=== PATIENT | female | born 1940 | race Caucasian/White ===

== ENCOUNTER → 2016-11-06 | Outpatient (CLI) | payer MEDICARE | END | disposition home or self-care (01) | LOC: LABWHC1 11:34 | PROVIDERS: ATTEND Otolaryngology | DX: R42 Dizziness and giddiness (principal) | CPT/HCPCS: 36415; 86780 ==

== ENCOUNTER 2016-12-20 08:58 | Observation (INO) | payer MEDICARE ==
[2016-12-20] MEDS ORDERED: NITROGLYCERIN OINT 1 INCH/GM PACKET TOPICAL STA (09:28)
[2016-12-20] MEDS ORDERED: ASPIRIN 81 MG PO STA (09:28)
--- NOTE | 2016-12-20 09:43 | ED ---
General Adult HPI - General Chief complaint: Chest Pain Stated complaint: Chest Pain Time Seen by Provider: 12/20/16 09:00 Source: patient, RN notes reviewed Mode of arrival: ambulatory Limitations: no limitations - History of Present Illness Initial comments: This is a 76-year-old female who presents emergency department to the emergency department with chest pain this morning. Patient states she woke up with the chest pain radiated down her right arm. Patient also states she was diaphoretic at the time. Patient states that last approximate one hour and now the pain is completely subsided. Patient states she took 1 baby aspirin at home. Patient denied any shortness of breath. Patient denied any nausea vomiting. Patient denied any abdominal pain. Patient states she has not had any recent fever chills or cough. Patient denies any palpitations per patient denies any lightheadedness dizziness or near syncopal episode. Patient denies headache patient denies numbness weakness. Patient denies any recent injury or trauma. - Related Data Home Medications Medication Instructions Recorded Confirmed Aspirin 81 mg PO DAILY 01/02/16 12/20/16 Atorvastatin [Lipitor] 40 mg PO HS 01/02/16 12/20/16 Black Cohosh Root [Black Cohosh] 200 mg PO DAILY 01/02/16 12/20/16 Calcium Carbonate [Calcium] 600 mg PO BID 01/02/16 12/20/16 Metoprolol Tartrate [Lopressor] 25 mg PO BID 01/02/16 12/20/16 Omeprazole 20 mg PO DAILY 01/02/16 12/20/16 Ubidecarenone [Co Q-10] 100 mg PO DAILY 01/02/16 12/20/16 amLODIPine [Norvasc] 5 mg PO HS 01/02/16 12/20/16 Calcium Carbonate/Vitamin D3 1 tab PO DAILY 12/20/16 12/20/16 [Calcium 600-Vit D3 400 Caplet] Meclizine [Antivert] 12.5 mg PO Q6H PRN 12/20/16 12/20/16 diphenhydrAMINE HCL [Benadryl] 25 mg PO BID 12/20/16 12/20/16 Allergies Allergy/AdvReac Type Severity Reaction Status Date / Time No Known Allergies Allergy Verified 12/20/16 09:39 Review of Systems ROS Statement: Those systems with pertinent positive or pertinent negative responses have been documented in the HPI. ROS Other: All systems not noted in ROS Statement are negative. Past Medical History Past Medical History: CVA/TIA, GERD/Reflux, Hyperlipidemia, Hypertension, Osteoarthritis (OA) Additional Past Medical History / Comment(s): TIA couple yrs ago-no residual effects History of Any Multi-Drug Resistant Organisms: None Reported Past Surgical History: Back Surgery, Hysterectomy Past Anesthesia/Blood Transfusion Reactions: No Reported Reaction Past Psychological History: No Psychological Hx Reported Smoking Status: Never smoker Past Alcohol Use History: None Reported Past Drug Use History: None Reported - Past Family History Brother(s) Family Medical History: Cancer General Exam - General Exam Comments Initial Comments: GENERAL: Patient is well-developed and well-nourished. Patient is nontoxic and well- hydrated and is in no acute distress. ENT: Neck is soft and supple. No significant lymphadenopathy is noted. Oropharynx is clear. Moist mucous membranes. Neck has full range of motion without eliciting any pain. EYES: The sclera were anicteric and conjunctiva were pink and moist. Extraocular movements were intact and pupils were equal round and reactive to light. Eyelids were unremarkable. PULMONARY: Unlabored respirations. Good breath sounds bilaterally. No audible rales rhonchi or wheezing was noted. CARDIOVASCULAR: There is a regular rate and rhythm without any murmurs gallops or rubs. ABDOMEN: Soft and nontender with normal bowel sounds. No palpable organomegaly was noted. There is no palpable pulsatile mass. SKIN: Skin is clear with no lesions or rashes and otherwise unremarkable. NEUROLOGIC: Patient is alert and oriented x3. Cranial nerves II through XII are grossly intact. Motor and sensory are also intact. Normal speech, volume and content. Symmetrical smile. MUSCULOSKELETAL: Normal extremities with adequate strength and full range of motion. No lower extremity swelling or edema. No calf tenderness. LYMPHATICS: No significant lymphadenopathy is noted PSYCHIATRIC: Normal psychiatric evaluation. Normal interpersonal interactions appears functionally intact in deals appropriately with others. No signs of depression. 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 Chest x-ray shows no acute abnormality I started the patient heparin because of the clinical presentation and patient risk factors I spoke with Dr. Dr. Calero he agreed to admit the patient admitted the patient I wrote admitting orders - Lab Data Result diagrams: 12/20/16 09:15 12/20/16 09:15 Lab Results 12/20/16 12/20/16 12/20/16 Range/Units 09:15 09:15 09:15 WBC 6.1 (3.8-10.6) k/uL RBC 5.29 (3.80-5.40) m/uL Hgb 15.3 (11.4-16.0) gm/dL Hct 44.7 (34.0-46.0) % MCV 84.5 (80.0-100.0) fL MCH 28.9 (25.0-35.0) pg MCHC 34.3 (31.0-37.0) g/dL RDW 13.6 (11.5-15.5) % Plt Count 229 (150-450) k/uL Neutrophils % 66 % Lymphocytes % 21 % Monocytes % 5 % Eosinophils % 5 % Basophils % 1 % Neutrophils # 4.0 (1.3-7.7) k/uL Lymphocytes # 1.3 (1.0-4.8) k/uL Monocytes # 0.3 (0-1.0) k/uL Eosinophils # 0.3 (0-0.7) k/uL Basophils # 0.0 (0-0.2) k/uL PT (9.0-12.0) sec INR (<1.2) APTT (22.0-30.0) sec Sodium 142 (137-145) mmol/L Potassium 5.3 H (3.5-5.1) mmol/L Chloride 107 (98-107) mmol/L Carbon Dioxide 25 (22-30) mmol/L Anion Gap 10 mmol/L BUN 16 (7-17) mg/dL Creatinine 0.66 (0.52-1.04) mg/dL Est GFR (MDRD) Af Amer >60 (>60 ml/min/1.73 sqM) Est GFR (MDRD) Non-Af >60 (>60 ml/min/1.73 sqM) Glucose 121 H (74-99) mg/dL Calcium 9.5 (8.4-10.2) mg/dL Magnesium 2.1 (1.6-2.3) mg/dL Total Bilirubin 0.7 (0.2-1.3) mg/dL AST 39 H (14-36) U/L ALT 50 (9-52) U/L Alkaline Phosphatase 90 (38-126) U/L Total Creatine Kinase 126 (30-135) U/L CK-MB (CK-2) 1.0 (0.0-2.4) ng/mL CK-MB (CK-2) Rel Index 0.8 Troponin I <0.012 (0.000-0.034) ng/mL Total Protein 7.5 (6.3-8.2) g/dL Albumin 4.5 (3.5-5.0) g/dL 12/20/16 Range/Units 09:15 WBC (3.8-10.6) k/uL RBC (3.80-5.40) m/uL Hgb (11.4-16.0) gm/dL Hct (34.0-46.0) % MCV (80.0-100.0) fL MCH (25.0-35.0) pg MCHC (31.0-37.0) g/dL RDW (11.5-15.5) % Plt Count (150-450) k/uL Neutrophils % % Lymphocytes % % Monocytes % % Eosinophils % % Basophils % % Neutrophils # (1.3-7.7) k/uL Lymphocytes # (1.0-4.8) k/uL Monocytes # (0-1.0) k/uL Eosinophils # (0-0.7) k/uL Basophils # (0-0.2) k/uL PT 10.2 (9.0-12.0) sec INR 1.0 (<1.2) APTT 19.7 L (22.0-30.0) sec Sodium (137-145) mmol/L Potassium (3.5-5.1) mmol/L Chloride (98-107) mmol/L Carbon Dioxide (22-30) mmol/L Anion Gap mmol/L BUN (7-17) mg/dL Creatinine (0.52-1.04) mg/dL Est GFR (MDRD) Af Amer (>60 ml/min/1.73 sqM) Est GFR (MDRD) Non-Af (>60 ml/min/1.73 sqM) Glucose (74-99) mg/dL Calcium (8.4-10.2) mg/dL Magnesium (1.6-2.3) mg/dL Total Bilirubin (0.2-1.3) mg/dL AST (14-36) U/L ALT (9-52) U/L Alkaline Phosphatase (38-126) U/L Total Creatine Kinase (30-135) U/L CK-MB (CK-2) (0.0-2.4) ng/mL CK-MB (CK-2) Rel Index Troponin I (0.000-0.034) ng/mL Total Protein (6.3-8.2) g/dL Albumin (3.5-5.0) g/dL Critical Care Time Critical Care Time: Yes Total Critical Care Time: 35 Disposition Clinical Impression: Unstable angina pectoris Disposition: ADMITTED IP TO THIS [facility] Referrals: Nonstaff,Physician [REFERRING] - 1-2 days Time of Disposition: 11:05
[2016-12-20 09:46] LABS: Basophils % (A) 1 %; CH 28.7; CHCM 34.1; Eosinophils # (A) 0.3 k/uL (0-0.7); Eosinophils % (A) 5 %; HCT 44.7 % (34.0-46.0); HDW 2.88; HGB 15.3 gm/dL (11.4-16.0); Luc # (Auto) 0.17; Luc % (Auto) 3; Lymphocytes # (A) 1.3 k/uL (1.0-4.8); Lymphocytes % (A) 21 %; MCH 28.9 pg (25.0-35.0); MCHC 34.3 g/dL (31.0-37.0); MCV 84.5 fL (80.0-100.0); Mean Platelet Volume 7.2; Monocytes # (A) 0.3 k/uL (0-1.0); Monocytes % (A) 5 %; Neutrophils % (A) 66 %; RBC 5.29 m/uL (3.80-5.40); RDW 13.6 % (11.5-15.5); WBC 6.1 k/uL (3.8-10.6); WBC (Perox) 6.08
--- NOTE | 2016-12-20 09:54 | XR ---
EXAMINATION TYPE: XR chest 2V DATE OF EXAM: 12/20/2016 COMPARISON: Prior chest x-ray 03/20/2016 HISTORY: Chest pain TECHNIQUE: Frontal and lateral views of the chest are obtained. FINDINGS: The cardiomediastinal silhouette, pulmonary vascularity and debby are stable. Lung scarring or atelectasis suspected left lower lobe as on prior exam. No pneumothorax, or pleural effusion evid ent. Right hemidiaphragm mildly elevated, there is eventration change. There are overlying cardiac le ads. The aorta is dense. IMPRESSION: No acute cardiopulmonary disease
[2016-12-20 09:59] LABS: ALT 50 U/L (9-52); AST 39 U/L (14-36); Alkaline Phosphatase 90 U/L (38-126); Anion Gap 10 mmol/L; Blood Urea Nitrogen 16 mg/dL (7-17); Calcium 9.5 mg/dL (8.4-10.2); Carbon Dioxide 25 mmol/L (22-30); Chloride 107 mmol/L (98-107); Glucose 121 mg/dL (74-99); Magnesium 2.1 mg/dL (1.6-2.3); Non-African American GFR(MDRD) >60 (>60 ml/min/1.73 sqM); Potassium 5.3 mmol/L (3.5-5.1); Sodium 142 mmol/L (137-145); Total Bilirubin 0.7 mg/dL (0.2-1.3); Total Protein 7.5 g/dL (6.3-8.2)
[2016-12-20 10:04] LABS: Prothrombin Time 10.2 sec (9.0-12.0)
[2016-12-20 10:07] LABS: Creatine Kinase 126 U/L (30-135)
[2016-12-20 10:19] LABS: Partial Thromboplastin Time 19.7 sec (22.0-30.0)
[2016-12-20 10:20] LABS: Troponin I <0.012 ng/mL (0.000-0.034)
[2016-12-20] MEDS ORDERED: HEPARIN SODIUM,PORCINE 5,000 UNIT/ML 1 ML VIAL IV ONE (10:46)
[2016-12-20] MEDS ORDERED: HEPARIN SODIUM,PORCINE/D5W PMX 25,000 UNIT in DEXTROSE/WATER 1 500ML.BAG IV SCH (11:00)
[2016-12-20] MEDS ORDERED: NITROGLYCERIN SL TABS 0.4 MG TAB SUBLINGUAL PRN (11:05)
[2016-12-20] MEDS ORDERED: NITROGLYCERIN OINT 1 INCH/GM PACKET TOPICAL SCH (12:00)
[2016-12-20 13:30] VITALS: BMI 39.4
--- NOTE | 2016-12-20 14:50 | P.CRDCN ---
History of Present Illness History of present illness: This is a 76-year-old pleasant female. Past medical history significant for hypertension and dyslipidemia. She follows with Dr. MENDOZA Kennedy as an outpatient. She presents to the hospital this morning with complaints of left sided chest pain described as tightness. She states this pain was located underneath the breast almost in the axillary region. This pain radiated into the left arm. She woke up with the pain this morning and it lasted for approximately 30-60 minutes. The pain went away on its own. She denies associated shortness of breath, diaphoresis, palpitations, dizziness, nausea or vomiting. She denies radiation into her neck, jaw or back. She states she has been chest pain-free since arrival to the emergency department. She is resting comfortably in bed in no acute distress at the current time of my examination. Patient underwent cardiac catheterization in June 2012 which showed approximately 35% mid LAD disease. She also had a Cardiolite stress test that was negative for reversible ischemia that time. Otherwise normal coronaries. EKG done shows normal sinus mechanism, rate of 66 beats per minute with no T- wave abnormality. When compared with old EKG this appears consistent. Troponins are normal x 1. Chest x-ray showed no acute cardiopulmonary process. Review of Systems Extensive review of systems performed, negative except mentioned in HPI. 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 History of Any Multi-Drug Resistant Organisms: None Reported Past Surgical History: Back Surgery, Hysterectomy Past Anesthesia/Blood Transfusion Reactions: No Reported Reaction Past Psychological History: No Psychological Hx Reported Smoking Status: Never smoker Past Alcohol Use History: None Reported Past Drug Use History: None Reported - Past Family History Brother(s) Family Medical History: Cancer Medications and Allergies Home Medications Medication Instructions Recorded Confirmed Type Aspirin 81 mg PO DAILY 01/02/16 12/20/16 History Atorvastatin [Lipitor] 40 mg PO HS 01/02/16 12/20/16 History Black Cohosh Root [Black Cohosh] 200 mg PO DAILY 01/02/16 12/20/16 History Calcium Carbonate [Calcium] 600 mg PO BID 01/02/16 12/20/16 History Metoprolol Tartrate [Lopressor] 25 mg PO BID 01/02/16 12/20/16 History Omeprazole 20 mg PO DAILY 01/02/16 12/20/16 History Ubidecarenone [Co Q-10] 100 mg PO DAILY 01/02/16 12/20/16 History amLODIPine [Norvasc] 5 mg PO HS 01/02/16 12/20/16 History Calcium Carbonate/Vitamin D3 1 tab PO DAILY 12/20/16 12/20/16 History [Calcium 600-Vit D3 400 Caplet] Meclizine [Antivert] 12.5 mg PO Q6H PRN 12/20/16 12/20/16 History diphenhydrAMINE HCL [Benadryl] 25 mg PO BID 12/20/16 12/20/16 History Allergies Allergy/AdvReac Type Severity Reaction Status Date / Time No Known Allergies Allergy Verified 12/20/16 09:39 Physical Exam Vitals: Vital Signs Temp Pulse Pulse Pulse Resp BP BP 12/20/16 12:58 97.6 F 68 18 144/78 12/20/16 12:27 97.8 F 78 20 142/73 12/20/16 11:00 64 18 147/64 12/20/16 09:57 72 18 148/75 12/20/16 09:20 71 12/20/16 09:02 97.4 F L 70 18 180/86 Pulse Ox 12/20/16 12:58 93 L 12/20/16 12:27 92 L 12/20/16 11:00 92 L 12/20/16 09:57 95 12/20/16 09:20 12/20/16 09:02 93 L Intake and Output 12/19/16 12/20/16 12/20/16 22:59 06:59 14:59 Other: Weight 107.5 kg Patient Weight 12/21/16 06:59 Weight 107.5 kg GENERAL: This is a 76-year-old female in no apparent distress at the time of my examination. HEENT: Head is atraumatic, normocephalic. Pupils are equal, round. Sclerae anicteric. Conjunctivae are clear. Mucous membranes of the mouth are moist. Neck is supple. There is no jugular venous distention. No carotid bruit is heard. LUNGS: Clear to auscultation no wheezes, rales or rhonchi. No chest wall tenderness is noted on palpation or with deep breathing. HEART: Regular rate and rhythm without murmurs, rubs or gallops. S1 and S2 heard. ABDOMEN: Soft, nontender. Bowel sounds are heard. No organomegaly noted. EXTREMITIES: 2+ peripheral pulses with no evidence of peripheral edema and no calf tenderness noted. NEUROLOGIC: Patient is awake, alert and oriented x3. Results 12/20/16 09:15 12/20/16 09:15 Cardiac Enzymes 12/20/16 12/20/16 Range/Units 09:15 09:15 AST 39 H (14-36) U/L CK-MB (CK-2) 1.0 (0.0-2.4) ng/mL Troponin I <0.012 (0.000-0.034) ng/mL Coagulation 12/20/16 Range/Units 09:15 PT 10.2 (9.0-12.0) sec APTT 19.7 L (22.0-30.0) sec CBC 12/20/16 Range/Units 09:15 WBC 6.1 (3.8-10.6) k/uL RBC 5.29 (3.80-5.40) m/uL Hgb 15.3 (11.4-16.0) gm/dL Hct 44.7 (34.0-46.0) % Plt Count 229 (150-450) k/uL Comprehensive Metabolic Panel 12/20/16 Range/Units 09:15 Sodium 142 (137-145) mmol/L Potassium 5.3 H (3.5-5.1) mmol/L Chloride 107 (98-107) mmol/L Carbon Dioxide 25 (22-30) mmol/L BUN 16 (7-17) mg/dL Creatinine 0.66 (0.52-1.04) mg/dL Glucose 121 H (74-99) mg/dL Calcium 9.5 (8.4-10.2) mg/dL AST 39 H (14-36) U/L ALT 50 (9-52) U/L Alkaline Phosphatase 90 (38-126) U/L Total Protein 7.5 (6.3-8.2) g/dL Albumin 4.5 (3.5-5.0) g/dL Current Medications Generic Name Dose Route Start Last Admin Trade Name Freq PRN Reason Stop Dose Admin Aspirin 325 mg 12/21/16 09:00 Aspirin PO DAILY [facility] Heparin Sodium/Dextrose 25,000 500 mls @ 19.59 mls/hr 12/20/16 11:00 11:08 unit/ IV Solution IV 12 units/kg/hr .Q24H TENISHA 19.59 mls/hr Protocol Administration 12 UNITS/KG/HR Nitroglycerin 1 inch 12/20/16 12:00 Nitro-Bid Oint TOPICAL Q6HR [facility] Nitroglycerin 0.4 mg 12/20/16 11:05 Nitrostat SUBLINGUAL Q5M PRN Chest Pain Intake and Output 12/19/16 12/20/16 12/20/16 22:59 06:59 14:59 Other: Weight 107.5 kg Patient Weight 12/21/16 06:59 Weight 107.5 kg 12/20/16 09:15 12/20/16 09:15 EKG Interpretations (text) EKG indicates a normal sinus mechanism with no acute ST or T-wave abnormality. Assessment and Plan Plan: ASSESSMENT 1. Chest pain, atypical 2. Essential hypertension 3. Dyslipidemia PLAN Obtain second set of troponin.He was most recently seen in the office with Dr. MENDOZA Kennedy 10/25/2016. She was advised at that time to return to the office should she have any further episodes of chest pain. If her second troponin is negative she is stable for discharge home to follow-up with Dr. Kennedy next week to undergo outpatient cardiac stress testing. Patient family for this consultation. Nurse Practitioner note has been reviewed, I agree with a documented findings and plan of care. Patient was seen and examined.
[2016-12-20] MEDS ORDERED: MECLIZINE 12.5 MG TAB PO PRN (15:17)
--- NOTE | 2016-12-20 15:24 | P.HPIM ---
History of Present Illness H&P Date: 12/20/16 Chief Complaint: Chest pain This is a 76-year-old female with a known history of TIA, hyperlipidemia, hypertension and osteoarthritis. Patient follows up with Dr. MENDOZA Kennedy as an outpatient. She presented to the hospital this morning with complaints of left sided chest pain is very sharp. He was located around the left breast and radiated into the left arm. The pain lasted for about 30-60 minutes and stopped. Patient's does report that the patient had some sweating during that time. She denies any shortness of breath dizziness nausea or vomiting. Patient underwent a cardiac catheterization in June 2012 which showed approximately 35% mid LAD disease. Also had a stress test at that time which was negative. 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 And she is tender with palpation of the chest wall. EKG shows a normal sinus rhythm. Chest x-rays negative. First set of troponins is negative. Patient has been admitted to the observation floor and started on IV heparin. Cardiology was consulted. Cardiology is recommending to check one more set of troponins and if that is negative patient is stable for discharge to follow-up with Dr. MENDOZA Kennedy in next week to undergo an outpatient stress test. Review of Systems Please refer to HPI otherwise unremarkable 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 History of Any Multi-Drug Resistant Organisms: None Reported Past Surgical History: Back Surgery, Hysterectomy Past Anesthesia/Blood Transfusion Reactions: No Reported Reaction Past Psychological History: No Psychological Hx Reported Smoking Status: Never smoker Past Alcohol Use History: None Reported Past Drug Use History: None Reported - Past Family History Brother(s) Family Medical History: Cancer Medications and Allergies Home Medications Medication Instructions Recorded Confirmed Type Aspirin 81 mg PO DAILY 01/02/16 12/20/16 History Atorvastatin [Lipitor] 40 mg PO HS 01/02/16 12/20/16 History Black Cohosh Root [Black Cohosh] 200 mg PO DAILY 01/02/16 12/20/16 History Calcium Carbonate [Calcium] 600 mg PO BID 01/02/16 12/20/16 History Metoprolol Tartrate [Lopressor] 25 mg PO BID 01/02/16 12/20/16 History Omeprazole 20 mg PO DAILY 01/02/16 12/20/16 History Ubidecarenone [Co Q-10] 100 mg PO DAILY 01/02/16 12/20/16 History amLODIPine [Norvasc] 5 mg PO HS 01/02/16 12/20/16 History Calcium Carbonate/Vitamin D3 1 tab PO DAILY 12/20/16 12/20/16 History [Calcium 600-Vit D3 400 Caplet] Meclizine [Antivert] 12.5 mg PO Q6H PRN 12/20/16 12/20/16 History diphenhydrAMINE HCL [Benadryl] 25 mg PO BID 12/20/16 12/20/16 History Allergies Allergy/AdvReac Type Severity Reaction Status Date / Time No Known Allergies Allergy Verified 12/20/16 09:39 Physical Exam Vitals: Vital Signs Temp Pulse Pulse Pulse Resp BP BP 12/20/16 12:58 97.6 F 68 18 144/78 12/20/16 12:27 97.8 F 78 20 142/73 12/20/16 11:00 64 18 147/64 12/20/16 09:57 72 18 148/75 12/20/16 09:20 71 12/20/16 09:02 97.4 F L 70 18 180/86 Pulse Ox 12/20/16 12:58 93 L 12/20/16 12:27 92 L 12/20/16 11:00 92 L 12/20/16 09:57 95 12/20/16 09:20 12/20/16 09:02 93 L Intake and Output 12/20/16 12/20/16 12/20/16 06:59 14:59 22:59 Other: Voiding Method Toilet Weight 107.5 kg Patient Weight 12/21/16 06:59 Weight 107.5 kg Head normocephalic Neck supple Lungs clear to auscultation bilaterally no wheezing or crackles Heart regular rate and rhythm S1-S2, no rub or gallop no murmur. Tenderness with palpation of the chest wall Abdomen is soft nontender nondistended positive bowel sounds no hepatosplenomegaly Extremities no edema Neuro alert and orientated to 3 Results CBC & Chem 7: 12/20/16 09:15 12/20/16 09:15 Labs: Abnormal Lab Results - Last 24 Hours (Table) 12/20/16 12/20/16 Range/Units 09:15 09:15 APTT 19.7 L (22.0-30.0) sec Potassium 5.3 H (3.5-5.1) mmol/L Glucose 121 H (74-99) mg/dL AST 39 H (14-36) U/L Thrombosis Risk Factor Assmnt - Choose All That Apply Each Factor Represents 1 point: Obesity (BMI >25) Each Risk Factor Represents 3 Points: Age 75 years or older Thrombosis Risk Factor Assessment Total Risk Factor Score: 4 Thrombosis Risk Factor Assessment Level: Moderate Risk Assessment and Plan Plan: 1. Atypical chest pain. First set of troponins negative. EKG showing a normal sinus rhythm. Awaiting second troponin. If that is negative cardiology is planning on outpatient stress test. Chest pain may be related to costochondritis 2. Hyperlipidemia 3. History of TIA 4. Essential hypertension 5. Hyperkalemia potassium of 5.3. Will have patient follow-up with her PCP outpatient. Avoid potassium food items Patient's is currently chest pain-free. First troponin is negative. Awaiting second troponin to rule out [place]. If that is negative patient will follow-up with cardiology outpatient for stress test. Please note that this report will stand for both H&P and discharge summary Time with Patient: Greater than 30 (Greater than 50% of the total time spent in counseling and coordination of care.I performed an examination of the patient and discussed their management with the physician Christmas Bell Ringer. I have reviewed the Physician Christmas Bell Ringer's notes and agree with the documented findings and plan of care)
[2016-12-20 15:45] VITALS: BP 106/61; PULSE 74; RESP 16; TEMP 98
[2016-12-20 17:26] LABS: Creatine Kinase 114 U/L (30-135)
[2016-12-20 17:40] LABS: Creatine Kinase MB 0.8 ng/mL (0.0-2.4); Troponin I <0.012 ng/mL (0.000-0.034)
[2016-12-20] MEDS ORDERED: amLODIPine 5 MG TAB PO SCH (21:00)
[2016-12-20] MEDS ORDERED: METOPROLOL TARTRATE 25 MG TAB PO SCH (21:00)
[2016-12-20] MEDS ORDERED: ATORVASTATIN 40 MG TAB PO SCH (21:00)
[2016-12-21] MEDS ORDERED: PANTOPRAZOLE 40 MG TABLET PO SCH (07:30)
[2016-12-21] MEDS ORDERED: ASPIRIN 325 MG TAB PO SCH (09:00)
--- NOTE | 2016-12-21 11:09 | CONS ---
CONSULTATION ADDENDUM: Mrs. Sims presented with what seems to be an episode of very atypical chest pain. After hospitalization her symptoms have resolved. The pain was very sharp in nature lasting a few seconds each time. Recurrent in nature. The pain has resolved. Two sets of troponins are normal. An EKG is unremarkable. She is resting comfortably without symptoms. I have seen this patient in the office recently her and also performed previous coronary angiography which did not reveal significant CAD. I spent quite a bit of time with the patient and and explained to them that we will discharge her and I will see her in the office and perform any outpatient testing later on. The patient has been up and about without symptoms ambulating. Vital signs are stable. PHYSICAL EXAM: Revealed no JVD or carotid bruit. S1-S2 heard normally. Lungs revealed decent air entry. No significant murmurs were audible. Abdomen and lower extremity exam was unchanged. Patient's blood pressure is under good control. She will be discharged today and I will see her in the office on Friday and make further recommendations. Thank you very much for the consult. MMODL / IJN: [id number] /
== END 2016-12-20 19:15 | disposition home or self-care (01) ==
LOC: EC 08:58 → 3OBS 11:05
PROVIDERS: ADMIT Internal Medicine; ATTEND Internal Medicine
DX: R07.89 Other chest pain (principal); I10 Essential (primary) hypertension; E78.5 Hyperlipidemia, unspecified; E87.5 Hyperkalemia; Z86.73 Personal history of transient ischemic attack (TIA), and cerebral infarction without residual deficits; E66.9 Obesity, unspecified; Z68.39 Body mass index [BMI] 39.0-39.9, adult; R61 Generalized hyperhidrosis; Z79.82 Long term (current) use of aspirin; Z79.899 Other long term (current) drug therapy; K21.9 Gastro-esophageal reflux disease without esophagitis; M19.90 Unspecified osteoarthritis, unspecified site
CPT/HCPCS: 99291; 96376 ×2; 96365 ×2; 36415; 93005; 80053; 82550; 82553; 83735; 84484; 85025; 85610; 85730; 71020; G0378; J1644 ×2

== ENCOUNTER → 2017-02-27 | Outpatient (CLI) | payer MEDICARE ==
[2017-02-27 10:15] LABS: Basophils % (A) 0 %; CH 28.8; CHCM 32.9; Eosinophils # (A) 0.1 k/uL (0-0.7); Eosinophils % (A) 1 %; HCT 44.4 % (34.0-46.0); HDW 2.74; HGB 14.6 gm/dL (11.4-16.0); Luc # (Auto) 0.15; Luc % (Auto) 2; Lymphocytes # (A) 1.1 k/uL (1.0-4.8); Lymphocytes % (A) 14 %; MCH 28.9 pg (25.0-35.0); MCHC 32.8 g/dL (31.0-37.0); MCV 88.1 fL (80.0-100.0); Mean Platelet Volume 7.2; Monocytes # (A) 0.5 k/uL (0-1.0); Monocytes % (A) 6 %; Neutrophils # (A) 6.5 k/uL (1.3-7.7); Neutrophils % (A) 77 %; RBC 5.04 m/uL (3.80-5.40); RDW 12.9 % (11.5-15.5); WBC 8.4 k/uL (3.8-10.6); WBC (Perox) 8.75
[2017-02-27 10:21] LABS: Potassium 4.5 mmol/L (3.5-5.1)
== END | disposition home or self-care (01) ==
LOC: LABWHC1 09:48
PROVIDERS: ATTEND Orthopaedic Surgery
DX: Z01.812 Encounter for preprocedural laboratory examination (principal); G56.02 Carpal tunnel syndrome, left upper limb; M65.322 Trigger finger, left index finger; M65.332 Trigger finger, left middle finger; M65.342 Trigger finger, left ring finger
CPT/HCPCS: 36415; 80051; 85025

== ENCOUNTER 2017-05-23 07:54 | Day surgery (SDC) | payer MEDICARE ==
[2017-05-21 14:54] VITALS: BMI 28.6
[~2017-05-23 07:54] MED LIST: LACTATED RINGERS 1,000 ML IV SCH
[2017-05-23 10:03] VITALS: RESP 16; TEMP 97
[2017-05-23] MEDS ORDERED: LIDOCAINE 1% 20 ML VIAL (10MG/ML) FOR IV START INTRADERMA ONE (10:24)
[2017-05-23] MEDS ORDERED: PROPOFOL 10 MG/ML 20 ML VIAL IV ONE (10:34)
[2017-05-23] MEDS ORDERED: LIDOCAINE 1% INJ 10MG/ML (20 ML MDV) ONE (10:34)
--- NOTE | 2017-05-23 10:44 | P.PCN ---
Date of Procedure: 05/23/17 Procedure(s) Performed: BRIEF HISTORY: Patient is a 76-year-old, pleasant, white female, scheduled for an upper endoscopy as a part of evaluation of intermittent dysphagia to solids for the last 2 months duration. She feels food gets stuck in the throat area. She denies any heartburn. Reports no odynophagia. In view of the symptoms she is scheduled for an upper endoscopy with possible dilation today. PROCEDURE PERFORMED: Esophagogastroduodenoscopy with biopsy. PREOPERATIVE DIAGNOSIS: Intermittent dysphagia to solids a few months duration. IV sedation per anesthesia. PROCEDURE: After informed consent was obtained, the patient was brought into the endoscopy unit. IV sedation was administered by Anesthesia under continuous monitoring. Initially the Olympus GIF-140 video endoscope was inserted into the mouth. Esophagus intubated without any difficulty. It was gradually advanced into the stomach and duodenum and carefully examined. The bulb and the second part of the duodenum appeared normal. The scope at this time was withdrawn to the stomach, adequately insufflated with air, and upon careful examination, mucosa of the antrum,had patchy areas of erythema and biopsies were done from this area. The body, cardia and the fundus appeared normal. The scope was then withdrawn into the esophagus. The GE junction was located at 39 cm from the incisors. The esophagus appeared normal. There were no erosions or ulcerations seen. there was no esophageal stricture. Biopsies were done from the distal esophagus and the patient tolerated the procedure well. IMPRESSION: 1.Mild antral gastritis. 2.Normal-appearing esophagus with no evidence of esophagitis, esophageal stricture or Zenker's diverticulum. RECOMMENDATIONS: The findings of this examination were discussed with the patient as well as a family. She was advised to follow with the biopsy results. 76
[2017-05-23 11:08] VITALS: BP 138/86; PULSE 70
== END 2017-05-23 11:35 | disposition home or self-care (01) ==
LOC: ORWHC2ENDO 07:54
PROVIDERS: ATTEND Internal Medicine Gastroenterology
DX: K29.60 Other gastritis without bleeding (principal); R13.10 Dysphagia, unspecified; K21.9 Gastro-esophageal reflux disease without esophagitis; I10 Essential (primary) hypertension; E78.5 Hyperlipidemia, unspecified; Z86.73 Personal history of transient ischemic attack (TIA), and cerebral infarction without residual deficits; Z79.82 Long term (current) use of aspirin; Z79.899 Other long term (current) drug therapy
CPT/HCPCS: 88305; 43239; J2001; J2704; 43235

== ENCOUNTER → 2017-06-23 | Outpatient (CLI) | payer MEDICARE ==
--- NOTE | 2017-06-23 17:00 | FL ---
MODIFIED SWALLOW / DEGLUTITION STUDY EXAMINATION TYPE: FL barium swallow w video DATE OF EXAM: 06/23/2017 CLINICAL HISTORY: 76-year-old female with throat irritation, frequent cough, coughing while eating. Total fluoroscopy time: 1 minute 37 seconds. Total images: None. Real-time fluoroscopy support was provided to speech pathology. TECHNIQUE: Deglutition study is performed utilizing thin liquid barium, honey and nectar thick liqui d barium, barium thick applesauce, and barium coated cracker. COMPARISON: None. FINDINGS: The oral and pharyngeal phases show satisfactory initiation and propagation with all modalities teste d. Normal mastication is seen with solid modalities tested. There is no evidence of penetration or aspiration with any modality tested. No significant pharyngeal residue was appreciated. IMPRESSION: Functional swallow. No penetration or aspiration. Please refer to speech therapist notes for further details if necessary.
== END | disposition home or self-care (01) ==
LOC: RADFLMAIN 10:34
PROVIDERS: ATTEND Internal Medicine Gastroenterology
DX: R13.10 Dysphagia, unspecified (principal)
CPT/HCPCS: 74230

== ENCOUNTER → 2017-07-22 | Outpatient (CLI) | payer MEDICARE ==
[2017-07-22 15:05] LABS: Basophils % (A) 1 %; Eosinophils # (A) 0.3 k/uL (0-0.7); Eosinophils % (A) 6 %; HCT 43.6 % (34.0-46.0); HGB 14.7 gm/dL (11.4-16.0); Lymphocytes # (A) 1.6 k/uL (1.0-4.8); Lymphocytes % (A) 27 %; MCH 28.5 pg (25.0-35.0); MCHC 33.8 g/dL (31.0-37.0); MCV 84.2 fL (80.0-100.0); Mean Platelet Volume 7.2; Monocytes # (A) 0.4 k/uL (0-1.0); Monocytes % (A) 6 %; Neutrophils # (A) 3.4 k/uL (1.3-7.7); Neutrophils % (A) 58 %; Platelet Count 246 k/uL (150-450); RBC 5.17 m/uL (3.80-5.40); WBC 5.9 k/uL (3.8-10.6)
[2017-07-22 15:37] LABS: Potassium 4.7 mmol/L (3.5-5.1)
== END | disposition home or self-care (01) ==
LOC: LABPAT 14:50
PROVIDERS: ATTEND Orthopaedic Surgery
DX: Z01.812 Encounter for preprocedural laboratory examination (principal); G56.02 Carpal tunnel syndrome, left upper limb; M65.322 Trigger finger, left index finger; M65.312 Trigger thumb, left thumb; M65.332 Trigger finger, left middle finger
CPT/HCPCS: 36415; 80051; 85025

== ENCOUNTER 2017-07-30 10:26 | Day surgery (SDC) | payer MEDICARE ==
[2017-07-25 08:57] VITALS: BMI 29.1
--- NOTE | 2017-07-29 14:26 | HP ---
HISTORY AND PHYSICAL DATE OF SERVICE: 07/30/2017 Inez Sims is a 76-year-old patient seen with symptomatic left carpal tunnel syndrome along with symptomatic trigger fingers involving left index finger, left middle finger, and left thumb. We discussed treatment options. She elected to proceed with surgery. Consent was obtained. PAST MEDICAL HISTORY: Hypertension, hyperlipidemia, gastroesophageal reflux disease. PAST SURGICAL HISTORY: Noncontributory. MEDICATIONS: 1. Amlodipine. 2. Atorvastatin. 3. Metoprolol. 4. Prilosec. ALLERGIES: None reported. SOCIAL HISTORY: Patient denies current tobacco use. Physical evaluation of the left hand shows carpal Tinel's causing numbness and tingling to the median nerve distribution. She has tenderness along the A1 barry sites of the left thumb, left index finger, left middle finger with clicking and catching. There is good perfusion distally. She has a decreased sensation median nerve distribution. There is a good radial pulse present. RADIOGRAPHS OF HER LEFT HAND: Reveal some carpometacarpal osteoarthritis. An EMG of left upper extremity revealed carpal tunnel syndrome. IMPRESSION: 1. Symptomatic left carpal tunnel syndrome. 2. Symptomatic trigger fingers involving the left thumb, left middle finger, and left index finger. 3. Hypertension. 4. Hyperlipidemia. 5. Gastroesophageal reflux disease. PLAN: Decompression left median nerve and Release A1 pulleys of the left middle finger, left index finger, and left thumb. MMODL / IJN: [id number] /
[~2017-07-30 10:26] MED LIST changes: +LIDOCAINE 1% 20 ML VIAL (10MG/ML) FOR IV START INTRADERMA PRN; +MORPHINE SULFATE 4MG/4ML SYRG IV PRN; +ONDANSETRON 4 MG/2 ML VIAL IVP ONE; +ceFAZolin IN SWFI 2 GM/20 ML SYRINGE IVP ONE
[2017-07-30 12:15] VITALS: TEMP 97.6
[2017-07-30] MEDS ORDERED: MIDAZOLAM 2 MG/2 ML VIAL IVP ONE (12:44)
[2017-07-30] MEDS ORDERED: fentaNYL (PF) 50 MCG/ML 2 ML AMP ONE (12:51)
[2017-07-30] MEDS ORDERED: MIDAZOLAM 2 MG/2 ML VIAL ONE (12:51)
[2017-07-30] MEDS ORDERED: LIDOCAINE 1% INJ 10MG/ML (20 ML MDV) ONE (12:51)
[2017-07-30] MEDS ORDERED: PROPOFOL 10 MG/ML 20 ML VIAL IV ONE (12:51)
[2017-07-30] MEDS ORDERED: BUPIVACAINE (PF) 0.25% 30 ML VIAL SQ ONE ×2 (13:00)
[2017-07-30 13:34] VITALS: RESP 18
--- NOTE | 2017-07-30 13:40 | P.OP ---
Date of Procedure: 07/30/17 Preoperative Diagnosis: 1. Left carpal tunnel syndrome 2. Left trigger thumb 3. Left index finger trigger finger 4. Left middle finger trigger finger Postoperative Diagnosis: Same Procedure(s) Performed: 1. Decompression left median nerve 2. Release A1 barry left thumb 3. Release A1 barry left index finger 4. Release A1 barry left middle finger Anesthesia: MAC, local Surgeon: Mehrdad Grewal Estimated Blood Loss (ml): 0 Pathology: none sent Condition: stable Disposition: PACU Indications for Procedure: 76-year-old patient seen with symptomatic left carpal tunnel syndrome as well as symptomatic left trigger thumb, left index finger trigger finger and left middle finger trigger finger. After having treatment options discussed she elected to proceed with surgical intervention. Consent regarding the procedure was obtained. Operative Findings: see description of procedure Description of Procedure: The patient was taken to the operative suite. The patient underwent IV sedation by the department of anesthesia. A well-padded tourniquet was placed proximal left upper extremity. The left upper extremity was prepped and draped in the normal sterile orthopedic fashion. The patient had received preoperative IV antibiotics. The proposed incision sites were infiltrated with quarter percent Marcaine totaling 18 mL. Once sufficient local analgesia was noted the extremity was elevated and tourniquet insufflated to 250. I made an incision starting at the distal volar wrist crease extending distally approximately 3 cm in line with the fourth metacarpal sharply through skin. I dissected down through the subcutaneous soft tissues and through the palmar fascia to the transverse carpal ligament. I incised the transverse carpal ligament. I completed the release proximally and distally with blunt Metzenbaums. We had good complete release of the transverse carpal ligament and good decompression of the nerve. I turned my attention now to the A1 barry area of the left thumb. An incision was made in that area. I dissected down to the A1 barry. I now release A1 barry with blunt Metzenbaums. There was good excursion of the tendon with no impingement. I now turned my attention to the A1 barry area of the left index finger. An incision was made in that area. I dissected down to the A1 barry area. I release A1 barry without difficulty. There was good excursion of the tendon with no impingement. I now made an incision over the A1 barry area of the left middle finger. I dissected down to the A1 barry. A1 barry was released. There was good excursion of the tendon with no impingement. All wounds were irrigated. We had good hemostasis. All 4 incisions were proximal nylon suture. We applied sterile dressings followed by webril and Michelet bandage. The tourniquet was released with immediate capillary refill of all digits noted. The patient was awakened and then taken to recovery in stable condition.
[2017-07-30 13:47] VITALS: BP 140/76; PULSE 75
== END 2017-07-30 13:59 | disposition home or self-care (01) ==
LOC: OR 10:26
PROVIDERS: ATTEND Orthopaedic Surgery
DX: G56.02 Carpal tunnel syndrome, left upper limb (principal); M65.322 Trigger finger, left index finger; M65.332 Trigger finger, left middle finger; M65.312 Trigger thumb, left thumb; M19.042 Primary osteoarthritis, left hand; I10 Essential (primary) hypertension; I69.911 Memory deficit following unspecified cerebrovascular disease; E78.5 Hyperlipidemia, unspecified; K21.9 Gastro-esophageal reflux disease without esophagitis; Z79.899 Other long term (current) drug therapy
CPT/HCPCS: 64721; 26055 ×3; J2250; J2405; J2001; J3010; J2704; J0690

== ENCOUNTER 2017-08-03 18:48 | Observation (INO) | payer MEDICARE ==
[2017-08-03] MEDS ORDERED: cefTRIAXone IN SWFI 1,000 MG/10 ML SYRINGE IVP STA (19:28)
[2017-08-03] MEDS ORDERED: SODIUM CHLORIDE 0.9% 1,000 ML IV STA ×2 (19:28)
[2017-08-03] MEDS ORDERED: MORPHINE SULFATE 4MG/4ML SYRG IVP STA (19:31)
[2017-08-03] MEDS ORDERED: ONDANSETRON 4 MG/2 ML VIAL IVP STA (19:31)
--- NOTE | 2017-08-03 19:33 | ED ---
Skin/Abscess/FB HPI - General Chief complaint: Skin/Abscess/Foreign Body Stated complaint: Swollen hand post surgery Time Seen by Provider: 08/03/17 19:16 Source: patient, RN notes reviewed, old records reviewed Mode of arrival: ambulatory Limitations: no limitations - History of Present Illness Initial comments: This patient is a pleasant 76-year-old female chief complaint of 1 day of severe pain in her left arm and wrist. Patient had carpal tunnel and index trigger finger surgery completed by Dr. johny Mullen on 07/30/17. She reports that she was doing well after the surgery. They removed the bandages 3 days after and it appeared well. She reports that yesterday evening she did have some pain in her hand but this morning she woke up with a very swollen and spitting progressively worse and painful. Any range of motion of her fingers and wrist causes severe pain. Patient states that she's had no fever or chills that she is aware of. He is right-handed. - Related Data Home Medications Medication Instructions Recorded Confirmed Aspirin 81 mg PO DAILY 01/02/16 07/25/17 Atorvastatin [Lipitor] 40 mg PO HS 01/02/16 07/30/17 Calcium Carbonate [Calcium] 600 mg PO BID 01/02/16 07/30/17 Metoprolol Tartrate [Lopressor] 25 mg PO BID 01/02/16 07/30/17 Omeprazole 20 mg PO BID 01/02/16 07/25/17 Ubidecarenone [Co Q-10] 200 mg PO DAILY 01/02/16 07/25/17 amLODIPine [Norvasc] 5 mg PO DAILY 01/02/16 07/25/17 diphenhydrAMINE HCL [Benadryl] 25 mg PO BID PRN 12/20/16 07/25/17 Multivitamins, Thera [Multivitamin 1 tab PO DAILY 05/21/17 07/25/17 (formulary)] Acetaminophen Tab [Tylenol Tab] 650 mg PO Q6H PRN 07/25/17 07/25/17 [place]-3 Fatty Acids/Fish Oil [Fish 1 each PO DAILY 07/25/17 07/25/17 Oil 1,000 mg Softgel] traMADol HCL [Ultram] 50 mg PO Q6HR PRN 07/25/17 07/30/17 Allergies Allergy/AdvReac Type Severity Reaction Status Date / Time No Known Allergies Allergy Verified 08/03/17 19:01 Review of Systems ROS Statement: Those systems with pertinent positive or pertinent negative responses have been documented in the HPI. ROS Other: All systems not noted in ROS Statement are negative. Past Medical History Past Medical History: CVA/TIA, GERD/Reflux, Hyperlipidemia, Hypertension, Memory Impairment, Osteoarthritis (OA) Additional Past Medical History / Comment(s): TIA, STATES FORGETFUL, HX VERTIGO , ALLERGIES., STATES LEFT HAND VERY PAINFUL. History of Any Multi-Drug Resistant Organisms: None Reported Past Surgical History: Back Surgery, Hysterectomy Past Anesthesia/Blood Transfusion Reactions: No Reported Reaction Past Psychological History: No Psychological Hx Reported Smoking Status: Never smoker Past Alcohol Use History: None Reported Past Drug Use History: None Reported - Past Family History Brother(s) Family Medical History: Cancer General Exam - General Exam Comments Initial Comments: 76-year-old female. Vision appears in moderate discomfort. Limitations: no limitations General appearance: alert, in no apparent distress Head exam: Present: atraumatic, normocephalic, normal inspection Eye exam: Present: normal appearance, PERRL, EOMI. Absent: scleral icterus, conjunctival injection, periorbital swelling ENT exam: Present: normal exam, mucous membranes moist Neck exam: Present: normal inspection. Absent: tenderness, meningismus, lymphadenopathy Respiratory exam: Present: normal lung sounds bilaterally. Absent: respiratory distress, wheezes, rales, rhonchi, stridor Cardiovascular Exam: Present: regular rate, normal rhythm, normal heart sounds. Absent: systolic murmur, diastolic murmur, rubs, gallop, clicks Left Elbow exam: Present: normal inspection Forearm Wrist exam: Present: tenderness, swelling. Absent: normal inspection Hand Wrist exam: Present: tenderness, swelling (Patient has significant tenderness and swelling noted to left hand. Worse with any range of motion of the hand and wrist.), other (Patient has a well-appearing incision sites. No drainage noted.). Absent: normal inspection Neuro motor exam: Present: wrist extension intact, other (Patient does have range of motion of the wrist but with any movement she cries in pain.) Vascular: Present: normal capillary refill Back exam: Present: normal inspection Psychiatric exam: Present: normal affect, normal mood Course Vital Signs 08/03/17 18:59 Temperature 98.9 F Pulse Rate 102 H Respiratory 18 Rate Blood Pressure 178/82 O2 Sat by Pulse 98 Oximetry Medical Decision Making - Medical Decision Making 68-year-old female with recent carpal tunnel and trigger finger surgery presents 4 days after surgery to plan of left hand pain swelling. Worse with any range of motion. Patient Fluids labwork obtained. CRP. Negative for blood cell count. Patient does clinically very swollen and painful hand with any range of motion. X-rays reviewed and showed some chronic changes but no evidence of osteomyelitis. Patient was initially started on IV Rocephin. I discussed case with jose. He discussed with his attending. Niels the patient for observation heels be remaining nothing by mouth tonight. Possible surgery in the morning after evaluation by orthopedics. - Lab Data Result diagrams: 08/03/17 19:35 08/03/17 19:35 Lab Results 08/03/17 08/03/17 08/03/17 Range/Units 19:35 19:35 19:35 WBC 10.3 (3.8-10.6) k/uL RBC 4.86 (3.80-5.40) m/uL Hgb 13.9 (11.4-16.0) gm/dL Hct 40.3 (34.0-46.0) % MCV 83.0 (80.0-100.0) fL MCH 28.6 (25.0-35.0) pg MCHC 34.5 (31.0-37.0) g/dL RDW 12.9 (11.5-15.5) % Plt Count 231 (150-450) k/uL Neutrophils % 80 % Lymphocytes % 11 % Monocytes % 5 % Eosinophils % 3 % Basophils % 0 % Neutrophils # 8.2 H (1.3-7.7) k/uL Lymphocytes # 1.1 (1.0-4.8) k/uL Monocytes # 0.5 (0-1.0) k/uL Eosinophils # 0.3 (0-0.7) k/uL Basophils # 0.0 (0-0.2) k/uL ESR 16 (0-20) mm/hr Sodium 141 (137-145) mmol/L Potassium 3.8 (3.5-5.1) mmol/L Chloride 104 (98-107) mmol/L Carbon Dioxide 21 L (22-30) mmol/L Anion Gap 16 mmol/L BUN 20 H (7-17) mg/dL Creatinine 0.60 (0.52-1.04) mg/dL Est GFR (CKD-EPI)AfAm >90 (>60 ml/min/1.73 sqM) Est GFR (CKD-EPI)NonAf 88 (>60 ml/min/1.73 sqM) Glucose 171 H (74-99) mg/dL Plasma Lactic Acid Jesu 1.8 (0.7-2.0) mmol/L Calcium 9.3 (8.4-10.2) mg/dL Total Bilirubin 0.5 (0.2-1.3) mg/dL AST 20 (14-36) U/L ALT 23 (9-52) U/L Alkaline Phosphatase 76 (38-126) U/L C-Reactive Protein 5.2 (<10.0) mg/L Total Protein 6.6 (6.3-8.2) g/dL Albumin 4.2 (3.5-5.0) g/dL - Radiology Data Radiology results: report reviewed Wrist and hand x-ray negative for any acute fracture dislocation. Chronic changes of the first metacarpal joint. Disposition Clinical Impression: Swelling of left hand, Post-operative complication Disposition: ADMITTED IP TO [facility] Condition: Good Is patient prescribed a controlled substance at d/c from ED?: No If prescribed controlled substance>3 days was MAPS reviewed?: No When asked, does pt state using other controlled substances?: No Referrals: Nehemias Bullock DO [Primary Care Provider] - 1-2 days Time of Disposition: 21:44
[2017-08-03 19:48] LABS: Basophils % (A) 0 %; Eosinophils # (A) 0.3 k/uL (0-0.7); Eosinophils % (A) 3 %; HCT 40.3 % (34.0-46.0); HGB 13.9 gm/dL (11.4-16.0); Lymphocytes # (A) 1.1 k/uL (1.0-4.8); Lymphocytes % (A) 11 %; MCH 28.6 pg (25.0-35.0); MCHC 34.5 g/dL (31.0-37.0); Mean Platelet Volume 7.2; Monocytes # (A) 0.5 k/uL (0-1.0); Monocytes % (A) 5 %; Neutrophils # (A) 8.2 k/uL (1.3-7.7); Neutrophils % (A) 80 %; Platelet Count 231 k/uL (150-450); RBC 4.86 m/uL (3.80-5.40); RDW 12.9 % (11.5-15.5); WBC 10.3 k/uL (3.8-10.6)
[2017-08-03] MEDS ORDERED: MORPHINE SULFATE 4 MG/0.8 ML SYRINGE (INJ) IVP STA ×2 (19:53→21:37)
[2017-08-03 20:07] LABS: ALT 23 U/L (9-52); AST 20 U/L (14-36); Albumin 4.2 g/dL (3.5-5.0); Alkaline Phosphatase 76 U/L (38-126); Anion Gap 16 mmol/L; Blood Urea Nitrogen 20 mg/dL (7-17); C Reactive Protein 5.2 mg/L (<10.0); Calcium 9.3 mg/dL (8.4-10.2); Carbon Dioxide 21 mmol/L (22-30); Chloride 104 mmol/L (98-107); Glucose 171 mg/dL (74-99); Potassium 3.8 mmol/L (3.5-5.1); Sodium 141 mmol/L (137-145); Total Bilirubin 0.5 mg/dL (0.2-1.3); Total Protein 6.6 g/dL (6.3-8.2)
[2017-08-03 20:29] LABS: Erythrocyte Sedimentation Rate 16 mm/hr (0-20)
--- NOTE | 2017-08-03 20:55 | XR ---
EXAMINATION TYPE: XR hand complete LT, XR wrist complete LT DATE OF EXAM: 08/03/2017 CLINICAL HISTORY: pain TECHNIQUE: Frontal, lateral and oblique images of the left hand and wrist are obtained. COMPARISON: None. FINDINGS: There is no acute fracture/dislocation evident. Bony fragmentation and sclerosis involving the first carpal metacarpal joint. Mild subluxation also noted in this region. The joint spaces appe ar within normal limits. The overlying soft tissue appears unremarkable. IMPRESSION: There is no acute fracture or dislocation. Chronic changes at the first carpal metacarpal joint. ICD 10 NO FRACTURE, INITIAL EVALUATION
[2017-08-03] MEDS ORDERED: SODIUM CHLORIDE 0.9% 1,000 ML IV SCH (21:45)
[2017-08-03] MEDS ORDERED: NALOXONE 0.4 MG/ML 1 ML VIAL IV PRN (21:45)
[2017-08-03] MEDS ORDERED: IBUPROFEN 400 MG TAB PO PRN (21:45)
[2017-08-03] MEDS ORDERED: ACETAMINOPHEN TAB 325 MG TAB PO PRN (21:45)
[2017-08-03] MEDS ORDERED: MORPHINE SULFATE 4 MG/0.8 ML SYRINGE (INJ) IV PRN (21:45)
[2017-08-03] MEDS ORDERED: KETOROLAC 30 MG/ML 1 ML VIAL IVP PRN (21:45)
[2017-08-03] MEDS ORDERED: diphenhydrAMINE 25 MG CAP PO PRN (21:47)
[2017-08-03] MEDS ORDERED: ACETAMINOPHEN TAB 325 MG TAB PO STA (22:01)
[2017-08-03] MEDS ORDERED: IBUPROFEN 400 MG TAB PO STA (22:01)
[2017-08-04] MEDS: ceFAZolin 1,000 MG in DEXTROSE/WATER 1 50ML.BAG IVPB SCH ×2 (01:37→07:45)
[2017-08-04 02:25] VITALS: BMI 29.9
[2017-08-04] MEDS ORDERED: PANTOPRAZOLE 40 MG TABLET PO SCH (07:30)
[2017-08-04 07:35] VITALS: BP 153/71; PULSE 74; RESP 18; TEMP 97.7
[2017-08-04] MEDS ORDERED: METOPROLOL TARTRATE 25 MG TAB PO SCH (09:00)
[2017-08-04] MEDS ORDERED: NON-FORMULARY DRUG (Omega-3 Fatty Acids/Fish Oil [Fish Oil 1,000 Mg Softgel] 1 EACH) PO SCH (09:00)
[2017-08-04] MEDS ORDERED: amLODIPine 5 MG TAB PO SCH (09:00)
[2017-08-04] MEDS ORDERED: CALCIUM CARBONATE 500 MG CHEWABLE PO SCH (09:00)
[2017-08-04] MEDS ORDERED: UBIDECARENONE 200 MG PO SCH (09:00)
[2017-08-04] MEDS ORDERED: ASPIRIN 81 MG PO SCH (09:00)
[2017-08-04] MEDS ORDERED: PANTOPRAZOLE 40 MG/10 ML VIAL IV SCH (09:00)
--- NOTE | 2017-08-04 10:16 | P.HPOR ---
History of Present Illness H&P Date: 08/04/17 Chief Complaint: Left hand pain and swelling This is a 68-year-old female who presented to [facility] emergency room yesterday evening with regards to increasing pain and swelling involving the left hand and wrist. Patient recently underwent a left carpal tunnel surgery in trigger finger release of the A1 barry involving the thumb index and middle finger on the left side also, surgery was on 07/30/[address] Grewal. Patient did remove the initial postop bandage on 08/02/2017. She noted increasing pain on 08/03/2017 when she woke up, the pain progressively got worse throughout the day which prompted her to report to Hospital. Upon arrival to the hospital, imaging lab test were done. No significant findings were noted on x-ray. Labs demonstrated a slightly elevated neutrophil count, all remaining labs were nonconclusive. I was contacted by the emergency room staff regarding the patient, and we did discuss the case. There is concerns of possible postop infection with cellulitis. Patient was admitted to the hospital under an observation status, she was made nothing by mouth and began on IV antibiotics prophylactically. I did see the patient early this morning at bedside. She notes significant improvement in the pain and swelling involving the left upper extremity. She denies any fevers or chills at this time. She denies any headaches, lightheadedness, chest pain or shortness of breath. Review of Systems Constitutional: Reports as per HPI Past Medical History Past Medical History: CVA/TIA, GERD/Reflux, Hyperlipidemia, Hypertension, Memory Impairment, Osteoarthritis (OA) Additional Past Medical History / Comment(s): TIA, STATES FORGETFUL, HX VERTIGO , ALLERGIES., STATES LEFT HAND VERY PAINFUL. History of Any Multi-Drug Resistant Organisms: None Reported Past Surgical History: Back Surgery, Hysterectomy Past Anesthesia/Blood Transfusion Reactions: No Reported Reaction Past Psychological History: No Psychological Hx Reported Smoking Status: Never smoker Past Alcohol Use History: None Reported Past Drug Use History: None Reported - Past Family History Brother(s) Family Medical History: Cancer Mother History Unknown: Yes Additional Family Medical History / Comment(s): Mother Father History Unknown: Yes Additional Family Medical History / Comment(s): Father Medications and Allergies Home Medications Medication Instructions Recorded Confirmed Type Aspirin 81 mg PO DAILY 01/02/16 08/04/17 History Atorvastatin [Lipitor] 40 mg PO HS 01/02/16 08/04/17 History Calcium Carbonate [Calcium] 600 mg PO BID 01/02/16 08/04/17 History Metoprolol Tartrate [Lopressor] 25 mg PO BID 01/02/16 08/04/17 History Omeprazole 20 mg PO BID 01/02/16 08/04/17 History Ubidecarenone [Co Q-10] 200 mg PO DAILY 01/02/16 08/04/17 History amLODIPine [Norvasc] 5 mg PO DAILY 01/02/16 08/04/17 History diphenhydrAMINE HCL [Benadryl] 25 mg PO BID PRN 12/20/16 08/04/17 History Multivitamins, Thera [Multivitamin 1 tab PO DAILY 05/21/17 08/04/17 History (formulary)] Acetaminophen Tab [Tylenol Tab] 650 mg PO Q6H PRN 07/25/17 08/04/17 History [place]-3 Fatty Acids/Fish Oil [Fish 1 cap PO DAILY 07/25/17 08/04/17 History Oil 1,000 mg Softgel] traMADol HCL [Ultram] 50 mg PO Q6HR PRN 07/25/17 08/04/17 History Allergies Allergy/AdvReac Type Severity Reaction Status Date / Time No Known Allergies Allergy Verified 08/03/17 19:01 Physical Examination Left upper extremity: Exam of the left hand and wrist, there is mild soft tissue swelling noted both on the dorsal and volar aspect of the hand. The stitches that are in place on the volar aspect of the wrist, proximal thumb, index and middle finger are all in good position and condition. There is no significant erythema noted throughout the volar aspect of the hand, there is no drainage from the incisions noted. She is able to flex and extend the fingers and minimal difficulty. Flexion and extension are intact at the wrist. On the dorsum of the hand, there is slight erythema noted but not severe. There are no open lesions or sores present on the dorsal or volar aspect. Her sensation to light touch throughout the extremity is intact. Cap refill in all fingers is less than 3 seconds, the radial pulses 2+ Results - Labs Labs: Abnormal Lab Results - Last 24 Hours (Table) 08/03/17 08/03/17 Range/Units 19:35 19:35 Neutrophils # 8.2 H (1.3-7.7) k/uL Carbon Dioxide 21 L (22-30) mmol/L BUN 20 H (7-17) mg/dL Glucose 171 H (74-99) mg/dL H & H 08/03/17 Range/Units 19:35 Hgb 13.9 (11.4-16.0) gm/dL Hct 40.3 (34.0-46.0) % Result Diagrams: 08/03/17 19:35 08/03/17 19:35 - Diagnostic results Wrist/Hand x-ray: report reviewed, image reviewed Assessment and Plan Plan: Imaging: Multiple views of the hand and wrist are obtained. Images demonstrated no acute fractures or dislocations, no foreign bodies noted Assessment: 1. Left hand pain and swelling 2. Recent history of wrist and hand surgery 07/30/2017 Plan: The case was discussed with my attending Dr. Galvan. Nor orthopedic surgical intervention needed at this time. No acute infectious process noted at this time. Plan for patient to be discharged home today, I discussed the patient wound care instructions along with activity restrictions at this time. I advised icing and elevating often I advised basic hand and wrist exercises after discharge We'll discharge home on oral Keflex 500 mg every 6 hours for 7 days prophylactically Plan for [facility] 1 week Time with Patient: Less than 30
--- NOTE | 2017-08-04 10:23 | P.DS ---
Providers Date of admission: 08/03/17 21:39 Expected date of discharge: 08/04/17 Attending physician: Paddy Galvan Primary care physician: Nehemias Chow [facility] Course: Date of admission: 08/03/2017 Date of discharge: 08/04/2017 Admission diagnosis: Left hand pain and swelling, recent hand and wrist surgery Discharge diagnosis: Same Attending physician: Dr. Galvan Surgical procedures: None Brief history: Patient is a 68-year-old female who presented to [facility] emergency room on 08/03/2017 with regards to increasing pain and swelling involving the left hand. Patient recently underwent hand and wrist surgery on 07/30/[address] Grewal. Her initial postoperative bandage was removed on . Patient noticed the increasing pain and swelling on 08/03/2017, and this did worsen throughout the day which prompted her to report to the hospital. After discussion with the emergency room staff regarding the patient , I did admit patient to the observation unit, she is made nothing by mouth and started on IV antibiotics for possible infection. Hospital course: Patient was unable evaluated working manager on 08/04/2017 at bedside. Patient notes significant improvement in the pain and swelling involving the left hand. She denied any fevers or chills throughout the hospital stay. She noted no focal neurological deficits during the hospital stay. His exam revealed no acute changes, she had good cap refill throughout the entire hand. Plan for patient to be discharged home today, we'll prescribe oral antibiotic for prophylaxis. Patient will then be scheduled to follow up in our office in 1 week. Discharge condition/disposition: Patient will be discharged home in stable condition. Discharge medications: Instructions are given on resumption of patient's normal daily medications per primary care recommendation, in addition patient will be prescribed Keflex 500 mg. Discharge instructions: 1. Wound care and infection precautions, [keep incision dry and covered while showering], no lotions, creams, moisturizers. No soaking, tubs, pools, hottubs. Do not scrub over the incision. 2. Basic hand and wrist exercises, this was discussed today bedside and demonstrated 3. Ice and elevate when necessary. Do not exceed 20 minutes per hour with ice pack. 4. Take oral antibiotics as instructed 5. [facility]-up at [facility] one week 12. Contact [facility] with any questions, . Procedures: None Patient Condition at Discharge: Good Plan - Discharge Summary Discharge Rx Participant: Yes New Discharge Prescriptions: New Cephalexin [Keflex] 500 mg PO Q6HR #28 cap No Action amLODIPine [Norvasc] 5 mg PO DAILY Metoprolol Tartrate [Lopressor] 25 mg PO BID Atorvastatin [Lipitor] 40 mg PO HS Aspirin 81 mg PO DAILY Omeprazole 20 mg PO BID Ubidecarenone [Co Q-10] 200 mg PO DAILY Calcium Carbonate [Calcium] 600 mg PO BID diphenhydrAMINE HCL [Benadryl] 25 mg PO BID PRN PRN Reason: ALLERGIES Multivitamins, Thera [Multivitamin (formulary)] 1 tab PO DAILY traMADol HCL [Ultram] 50 mg PO Q6HR PRN PRN Reason: Pain [place]-3 Fatty Acids/Fish Oil [Fish Oil 1,000 mg Softgel] 1 cap PO DAILY Acetaminophen Tab [Tylenol Tab] 650 mg PO Q6H PRN PRN Reason: Pain Discharge Medication List Aspirin 81 mg PO DAILY 01/02/16 [History] Atorvastatin [Lipitor] 40 mg PO HS 01/02/16 [History] Calcium Carbonate [Calcium] 600 mg PO BID 01/02/16 [History] Metoprolol Tartrate [Lopressor] 25 mg PO BID 01/02/16 [History] Omeprazole 20 mg PO BID 01/02/16 [History] Ubidecarenone [Co Q-10] 200 mg PO DAILY 01/02/16 [History] amLODIPine [Norvasc] 5 mg PO DAILY 01/02/16 [History] diphenhydrAMINE HCL [Benadryl] 25 mg PO BID PRN 12/20/16 [History] Multivitamins, Thera [Multivitamin (formulary)] 1 tab PO DAILY 05/21/17 [History ] Acetaminophen Tab [Tylenol Tab] 650 mg PO Q6H PRN 07/25/17 [History] [place]-3 Fatty Acids/Fish Oil [Fish Oil 1,000 mg Softgel] 1 cap PO DAILY [History] traMADol HCL [Ultram] 50 mg PO Q6HR PRN 07/25/17 [History] Cephalexin [Keflex] 500 mg PO Q6HR #28 cap 08/04/17 [Rx] Follow up Appointment(s)/Referral(s): Nehemias Bullock, [Primary Care Provider] - 1-2 days Jaskaran Loyola PAC [PHYSICIAN FOOD SERVICE TECHNICIAN] - 1 Week Activity/Diet/Wound Care/Special Instructions: Discharge instructions: Keep incisions covered while showering on left hand Ice and elevate often Oral antibiotics as instructed [facility]-up at [facility] 2 weeks Contact [facility] any questions or concerns Discharge Disposition: HOME SELF-CARE
[2017-08-04] MEDS ORDERED: MORPHINE ORAL SOLN 10 MG/5 ML CUP PO PRN (11:07)
[2017-08-04] MEDS ORDERED: MULTIVITAMINS, THERA 1 EACH TAB PO SCH (12:00)
[2017-08-04] MEDS ORDERED: ATORVASTATIN 40 MG TAB PO SCH (21:00)
== END 2017-08-04 11:22 | disposition home or self-care (01) ==
LOC: EC 18:48 → 3SUR 21:39
PROVIDERS: ADMIT Orthopaedic Surgery; ATTEND Orthopaedic Surgery
DX: M79.89 Other specified soft tissue disorders (principal); M79.642 Pain in left hand; M25.532 Pain in left wrist; Z98.890 Other specified postprocedural states; I10 Essential (primary) hypertension; K21.9 Gastro-esophageal reflux disease without esophagitis; E78.5 Hyperlipidemia, unspecified; R41.3 Other amnesia; M19.90 Unspecified osteoarthritis, unspecified site; Z79.82 Long term (current) use of aspirin; Z79.899 Other long term (current) drug therapy; Z86.73 Personal history of transient ischemic attack (TIA), and cerebral infarction without residual deficits; Z80.9 Family history of malignant neoplasm, unspecified
CPT/HCPCS: 99285 ×2; 96375 ×4; 96376 ×2; 96361 ×4; 96365; 36415; 80053; 85652; 83605; 85025; 86140; 87040; 73110; 73130; G0378 ×2; J2405; J0696; J0690; J2270

== ENCOUNTER → 2018-02-28 | Outpatient (CLI) | payer MEDICARE ==
[2018-02-28 17:23] LABS: Rheumatoid Factor 11 IU/mL (0-15)
[2018-03-02 11:17] LABS: Anti-DNA, DS unit <1.0 IU/mL; DNA Double-Stranded NEGATIVE (NEGATIVE)
[2018-03-02 13:47] LABS: Folate, Serum >24.0 ng/mL
== END ==
LOC: LABWHC1 09:45
PROVIDERS: ATTEND Psychiatry & Neurology Neurology
DX: R41.3 Other amnesia (principal)
CPT/HCPCS: 36415; 82565; 82607; 82746; 84520; 86038; 86225; 86431

== ENCOUNTER → 2018-03-19 | Outpatient (CLI) | payer MEDICARE ==
--- NOTE | 2018-03-19 08:57 | MR ---
EXAMINATION TYPE: MR brain wo/w con DATE OF EXAM: 03/19/2018 COMPARISON: None HISTORY: Memory loss TECHNIQUE: Multiplanar, multisequence images of the brain and brainstem is performed without and with IV contras t, utilizing 7.5 mL intravenous Gadavist . FINDINGS: Diffusion weighted images demonstrate no evidence of a recent infarct or other diffusion ab normality. There is moderate generalized degenerative change. There are diffuse and focal areas of abnormal sign al throughout the white matter bilaterally in a nonspecific pattern. Most likely etiology remote micr ovascular ischemia. Changes of chronic sinusitis are noted. Trace of increased fluid surrounding the optic nerves can be associated with increased intracranial benign hypertension correlate clinically. Craniocervical junct ion maintained. Partially empty sella turcica noted. Following contrast administration there is no enhancing mass. A prominent CSF space within the anteri or temporal fossa bilaterally measuring 2.4 cm on the left 1.7 cm on the right suggestive of small ar achnoid cyst.. IMPRESSION: 1. Moderate generalized degenerative change with confluent and numerous focal areas of abnormal signa l the white matter which are not sufficient. Most likely etiology is remote microvascular ischemia. 2. Chronic sinusitis. 3. Small amount of fluid surrounding the optic nerves with partially empty sella turcica. This can oc casionally be associated with benign increased intracranial hypertension. Correlate clinically. 4. Bilateral small anterior temporal fossa arachnoid cyst.
== END ==
LOC: RADMRIMAIN 07:21
PROVIDERS: ATTEND Psychiatry & Neurology Neurology
DX: G93.0 Cerebral cysts (principal); G93.2 Benign intracranial hypertension; R90.89 Other abnormal findings on diagnostic imaging of central nervous system
CPT/HCPCS: 70553; A9585

== ENCOUNTER 2018-06-03 06:49 | Emergency (ER) | payer MEDICARE ==
[2018-06-03] MEDS ORDERED: KETOROLAC 30 MG/ML 1 ML VIAL IVP STA (07:22)
--- NOTE | 2018-06-03 07:24 | ED ---
Chest Pain HPI - General Chief Complaint: Chest Pain Stated Complaint: Chest Pain Time Seen by Provider: 06/03/18 07:00 Source: patient, family, RN notes reviewed Mode of arrival: wheelchair Limitations: no limitations - History of Present Illness Initial Comments: This is a 77-year-old female with no prior history of heart or lung disease who states she woke up this morning around 5:00 was sharp left-sided midsternal chest pain that radiated down the left arm. She states the pain was 8 or 9/10 severity in chest also low but dull in the left arm. No shortness breath fevers chills nausea vomiting sweats or other symptoms. She does state that she has similar episode about 2 years ago but is not sure of the etiology. No recent cough cold flu no heavy lifting no recent overhead work or any type of trauma. MD Complaint: chest pain - Related Data Home Medications Medication Instructions Recorded Confirmed Aspirin 81 mg PO DAILY 01/02/16 06/03/18 Atorvastatin [Lipitor] 40 mg PO HS 01/02/16 06/03/18 Calcium Carbonate [Calcium] 600 mg PO BID 01/02/16 06/03/18 Metoprolol Tartrate [Lopressor] 25 mg PO BID 01/02/16 06/03/18 Omeprazole 20 mg PO DAILY 01/02/16 06/03/18 Ubidecarenone [Co Q-10] 200 mg PO DAILY 01/02/16 06/03/18 amLODIPine [Norvasc] 5 mg PO DAILY 01/02/16 06/03/18 Donepezil HCl [Aricept] 5 mg PO DAILY 06/03/18 06/03/18 Losartan/Hydrochlorothiazide 1 tab PO HS 06/03/18 06/03/18 [Losartan-Hctz 50-12.5 mg Tab] Previous Rx's Medication Instructions Recorded Ibuprofen [Motrin] 600 mg PO Q6HR PRN #20 tab 06/03/18 Allergies Allergy/AdvReac Type Severity Reaction Status Date / Time No Known Allergies Allergy Verified 06/03/18 07:24 Review of Systems ROS Statement: Those systems with pertinent positive or pertinent negative responses have been documented in the HPI. ROS Other: All systems not noted in ROS Statement are negative. EKG Findings - EKG Results: EKG: interpreted by ERMD, WNL, sinus rhythm, normal axis, normal QRS, normal ST/ T, no acute changes (Normal sinus rhythm a 68. TN interval 174 QRS 70 QT since QTC 422/[address]-T wave changes.) Past Medical History Past Medical History: CVA/TIA, GERD/Reflux, Hyperlipidemia, Hypertension, Memory Impairment, Osteoarthritis (OA) Additional Past Medical History / Comment(s): TIA, STATES FORGETFUL, HX VERTIGO , ALLERGIES., STATES LEFT HAND VERY PAINFUL. History of Any Multi-Drug Resistant Organisms: None Reported Past Surgical History: Back Surgery, Hysterectomy Past Anesthesia/Blood Transfusion Reactions: No Reported Reaction Past Psychological History: No Psychological Hx Reported Smoking Status: Never smoker Past Alcohol Use History: None Reported Past Drug Use History: None Reported - Past Family History Brother(s) Family Medical History: Cancer Mother History Unknown: Yes Additional Family Medical History / Comment(s): Mother Father History Unknown: Yes Additional Family Medical History / Comment(s): Father General Exam - General Exam Comments Initial Comments: This is a well-developed well-nourished awake alert oriented 3 female Limitations: no limitations General appearance: alert, anxious Head exam: Present: atraumatic, normocephalic, normal inspection Eye exam: Present: normal appearance, PERRL, EOMI. Absent: scleral icterus, conjunctival injection, periorbital swelling ENT exam: Present: normal exam, mucous membranes moist Neck exam: Present: normal inspection, tenderness, full ROM, other (Is palpation over the left no stridor JVD or bruits). Absent: meningismus, lymphadenopathy Respiratory exam: Present: normal lung sounds bilaterally, chest wall tenderness (Reproducible tenderness palpation on the left costal sternal margin the costochondral margin with no step-off or crepitation). Absent: respiratory distress, wheezes, rales, rhonchi, stridor Cardiovascular Exam: Present: regular rate, normal rhythm, normal heart sounds. Absent: systolic murmur, diastolic murmur, rubs, gallop, clicks GI/Abdominal exam: Present: soft, normal bowel sounds. Absent: distended, tenderness, guarding, rebound, rigid Extremities exam: Present: normal inspection, full ROM, normal capillary refill. Absent: tenderness, pedal edema, joint swelling, calf tenderness Back exam: Present: normal inspection Neurological exam: Present: alert, oriented X3, CN II-XII intact Psychiatric exam: Present: normal affect, normal mood Skin exam: Present: warm, dry, intact, normal color. Absent: rash Course Vital Signs 06/03/18 06:51 Temperature 97.8 F Pulse Rate 68 Respiratory 20 Rate Blood Pressure 164/84 O2 Sat by Pulse 97 Oximetry Chest Pain MDM - MDM I did review the imaging and report no acute findings. Patient is pain-free at this time I did discuss the findings with her and her . The patient does appear to have muscle skeletal pain in origin. We did discuss the differential patient will be discharged with follow-up with her doctor if needed and return when necessary she will be placed on short course of anti- inflammatories. Disposition Clinical Impression: Chest wall syndrome, Costalchondritis, Trapezius muscle strain Disposition: HOME SELF-CARE Condition: Good Instructions (If sedation given, give patient instructions): Costochondritis ( ED), Musculoskeletal Pain (ED) Prescriptions: Ibuprofen [Motrin] 600 mg PO Q6HR PRN #20 tab PRN Reason: Pain Is patient prescribed a controlled substance at d/c from ED?: No Referrals: Sondra Quintero MD [Primary Care Provider] - 1-2 days
[2018-06-03 07:50] LABS: Basophils # (A) 0.1 k/uL (0-0.2); Basophils % (A) 1 %; Eosinophils # (A) 0.3 k/uL (0-0.7); Eosinophils % (A) 4 %; HCT 44.1 % (34.0-46.0); HGB 14.8 gm/dL (11.4-16.0); Lymphocytes # (A) 1.8 k/uL (1.0-4.8); Lymphocytes % (A) 25 %; MCH 29.1 pg (25.0-35.0); MCHC 33.7 g/dL (31.0-37.0); MCV 86.3 fL (80.0-100.0); Mean Platelet Volume 7.1; Monocytes # (A) 0.4 k/uL (0-1.0); Monocytes % (A) 6 %; Neutrophils # (A) 4.3 k/uL (1.3-7.7); Neutrophils % (A) 62 %; Platelet Count 247 k/uL (150-450); RBC 5.11 m/uL (3.80-5.40); RDW 13.4 % (11.5-15.5)
[2018-06-03 07:54] LABS: ALT 40 U/L (9-52); AST 27 U/L (14-36); Albumin 4.6 g/dL (3.5-5.0); Alkaline Phosphatase 88 U/L (38-126); Amylase 72 U/L (30-110); Anion Gap 8 mmol/L; Blood Urea Nitrogen 18 mg/dL (7-17); Calcium 9.7 mg/dL (8.4-10.2); Carbon Dioxide 29 mmol/L (22-30); Chloride 106 mmol/L (98-107); Glucose 110 mg/dL (74-99); Lipase 139 U/L (23-300); Magnesium 2.2 mg/dL (1.6-2.3); Potassium 4.1 mmol/L (3.5-5.1); Sodium 143 mmol/L (137-145); Total Bilirubin 0.8 mg/dL (0.2-1.3); Total Protein 7.6 g/dL (6.3-8.2)
[2018-06-03 08:01] LABS: Creatine Kinase 187 U/L (30-135)
[2018-06-03 08:08] LABS: D-Dimer 0.21 mg/L FEU (<0.60); INR 0.9 (<1.2); Prothrombin Time 10.2 sec (9.0-12.0)
--- NOTE | 2018-06-03 08:12 | XR ---
EXAMINATION TYPE: XR chest 2V DATE OF EXAM: 06/03/2018 COMPARISON: 12/20/2016 HISTORY: Chest pain TECHNIQUE: Frontal and lateral views of the chest are obtained. FINDINGS: There is no focal air space opacity, pleural effusion, or pneumothorax seen. The cardiac silhouette size is within normal limits. The osseous structures are intact. Minimal multilevel dege nerative changes of the thoracic spine are seen. IMPRESSION: No acute cardiopulmonary process.
[2018-06-03 08:13] LABS: Creatine Kinase MB 1.5 ng/mL (0.0-2.4); Troponin I <0.012 ng/mL (0.000-0.034)
[2018-06-03 09:39] VITALS: BP 147/69; PULSE 76; RESP 18; TEMP 97.9
== END 2018-06-03 09:38 | disposition home or self-care (01) ==
LOC: EC 06:49
DX: M94.0 Chondrocostal junction syndrome [Tietze] (principal); S46.912A Strain of unspecified muscle, fascia and tendon at shoulder and upper arm level, left arm, initial encounter; K21.9 Gastro-esophageal reflux disease without esophagitis; E78.5 Hyperlipidemia, unspecified; I10 Essential (primary) hypertension; Z79.82 Long term (current) use of aspirin; Z79.899 Other long term (current) drug therapy; Z86.73 Personal history of transient ischemic attack (TIA), and cerebral infarction without residual deficits; X50.9XXA Other and unspecified overexertion or strenuous movements or postures, initial encounter
CPT/HCPCS: 36415; 85379; 83880; 80053; 82150; 82550; 82553; 83690; 83735; 84484; 85025; 85610; 85730; 71046; 99285; 96374; J1885

== ENCOUNTER 2019-01-06 10:43 | Emergency (ER) | payer MEDICARE ==
[2019-01-06 11:12] VITALS: TEMP 98
[2019-01-06] MEDS ORDERED: SODIUM CHLORIDE 0.9% 1,000 ML IV STA (11:56)
[2019-01-06] MEDS ORDERED: MORPHINE SULFATE 4 MG/ML SYRINGE IV STA (11:56)
[2019-01-06] MEDS ORDERED: ONDANSETRON 4 MG/2 ML VIAL IVP STA (11:56)
[2019-01-06 12:11] LABS: Basophils # (A) 0.1 k/uL (0-0.2); Basophils % (A) 1 %; Eosinophils # (A) 0.8 k/uL (0-0.7); Eosinophils % (A) 10 %; HCT 42.2 % (34.0-46.0); HGB 14.1 gm/dL (11.4-16.0); Lymphocytes # (A) 1.2 k/uL (1.0-4.8); Lymphocytes % (A) 17 %; MCH 28.1 pg (25.0-35.0); MCHC 33.4 g/dL (31.0-37.0); MCV 84.2 fL (80.0-100.0); Mean Platelet Volume 7.3; Monocytes # (A) 0.4 k/uL (0-1.0); Monocytes % (A) 5 %; Neutrophils # (A) 4.7 k/uL (1.3-7.7); Neutrophils % (A) 64 %; Platelet Count 240 k/uL (150-450); RBC 5.01 m/uL (3.80-5.40); RDW 13.5 % (11.5-15.5); WBC 7.3 k/uL (3.8-10.6)
[2019-01-06 12:19] LABS: African American GFR (CKD) >90 (>60 ml/min/1.73 sqM); Anion Gap 9 mmol/L; Blood Urea Nitrogen 18 mg/dL (7-17); Calcium 9.7 mg/dL (8.4-10.2); Carbon Dioxide 27 mmol/L (22-30); Chloride 105 mmol/L (98-107); Glucose 117 mg/dL (74-99); Potassium 4.2 mmol/L (3.5-5.1); Sodium 141 mmol/L (137-145)
--- NOTE | 2019-01-06 12:20 | ED ---
Headache HPI - General Chief Complaint: Headache Stated Complaint: Migraine Time Seen by Provider: 01/06/19 11:21 Source: RN notes reviewed, old records reviewed Mode of arrival: ambulatory Limitations: no limitations - History of Present Illness Initial Comments: This is an 78-year-old female the ER for evaluation. Today she presents for evaluation regards to headache. Patient severe headache that started today. Patient does have occasional headaches as headache is mildly worse. It's a frontal headache throbbing in nature. She denies any trauma no fevers. Patient has no modifying factors for pain. She did take some Aleve with no help. Has had no nausea vomiting and no neurological complaints. MD Complaint: headache -: hour(s) Onset Description: gradual Location: frontal Severity: moderate Severity scale (1-10): 7 Quality: aching, throbbing Consistency: constant Improves With: nothing Worsens With: none Context: occurred at rest Associated Symptoms: other (None) Other Symptoms: other (Not) Treatments Prior to Arrival: other (Aleve) - Related Data Home Medications Medication Instructions Recorded Confirmed Aspirin 81 mg PO DAILY 01/02/16 01/06/19 Atorvastatin [Lipitor] 40 mg PO HS 01/02/16 01/06/19 Calcium Carbonate [Calcium] 600 mg PO BID 01/02/16 01/06/19 Metoprolol Tartrate [Lopressor] 25 mg PO BID 01/02/16 01/06/19 Omeprazole 20 mg PO DAILY 01/02/16 01/06/19 Ubidecarenone [Co Q-10] 200 mg PO DAILY 01/02/16 01/06/19 amLODIPine [Norvasc] 5 mg PO BID 01/02/16 01/06/19 Donepezil HCl [Aricept] 5 mg PO DAILY 06/03/18 01/06/19 Losartan/Hydrochlorothiazide 1 tab PO HS 06/03/18 01/06/19 [Losartan-Hctz 50-12.5 mg Tab] Naproxen Sodium [Aleve] 440 mg PO BID PRN 01/06/19 01/06/19 Allergies Allergy/AdvReac Type Severity Reaction Status Date / Time No Known Allergies Allergy Verified 01/06/19 11:26 Review of Systems ROS Statement: Those systems with pertinent positive or pertinent negative responses have been documented in the HPI. ROS Other: All systems not noted in ROS Statement are negative. Past Medical History Past Medical History: CVA/TIA, GERD/Reflux, Hyperlipidemia, Hypertension, Memory Impairment, Osteoarthritis (OA) Additional Past Medical History / Comment(s): TIA, STATES FORGETFUL, HX VERTIGO, ALLERGIES., STATES LEFT HAND VERY PAINFUL. History of Any Multi-Drug Resistant Organisms: None Reported Past Surgical History: Back Surgery, Hysterectomy Past Anesthesia/Blood Transfusion Reactions: No Reported Reaction Past Psychological History: No Psychological Hx Reported Smoking Status: Never smoker Past Alcohol Use History: None Reported Past Drug Use History: None Reported - Past Family History Brother(s) Family Medical History: Cancer Mother History Unknown: Yes Additional Family Medical History / Comment(s): Mother Father History Unknown: Yes Additional Family Medical History / Comment(s): Father General Exam - General Exam Comments Initial Comments: NIH of 0, no neurological deficit Limitations: no limitations General appearance: alert, in no apparent distress Head exam: Present: atraumatic, normocephalic, normal inspection Eye exam: Present: normal appearance, PERRL, EOMI. Absent: scleral icterus, conjunctival injection, periorbital swelling ENT exam: Present: normal exam, mucous membranes moist Neck exam: Present: normal inspection. Absent: tenderness, meningismus, lymphadenopathy Respiratory exam: Present: normal lung sounds bilaterally. Absent: respiratory distress, wheezes, rales, rhonchi, stridor Cardiovascular Exam: Present: regular rate, normal rhythm, normal heart sounds. Absent: systolic murmur, diastolic murmur, rubs, gallop, clicks GI/Abdominal exam: Present: soft, normal bowel sounds. Absent: distended, tenderness, guarding, rebound, rigid Extremities exam: Present: normal inspection, full ROM, normal capillary refill. Absent: tenderness, pedal edema, joint swelling, calf tenderness Back exam: Present: normal inspection Neurological exam: Present: alert, oriented X3, CN II-XII intact Psychiatric exam: Present: normal affect, normal mood Skin exam: Present: warm, dry, intact, normal color. Absent: rash Course Vital Signs 01/06/19 11:08 Temperature 98 F Pulse Rate 56 L Respiratory 16 Rate Blood Pressure 142/67 O2 Sat by Pulse 95 Oximetry - Reevaluation(s) Reevaluation #1: 01/06/19 12:19 Medical records reviewed Reevaluation #2: 01/06/19 13:37 Headache is improved patient's nonneurologic, GCS 15 Medical Decision Making - Medical Decision Making 78 female the ER with nonspecific acute headache. Patient has normal CAT scan yesterday can be discharged home headache is improved - Lab Data Result diagrams: 01/06/19 11:54 01/06/19 11:54 Lab Results 01/06/19 01/06/19 Range/Units 11:54 11:54 WBC 7.3 (3.8-10.6) k/uL RBC 5.01 (3.80-5.40) m/uL Hgb 14.1 (11.4-16.0) gm/dL Hct 42.2 (34.0-46.0) % MCV 84.2 (80.0-100.0) fL MCH 28.1 (25.0-35.0) pg MCHC 33.4 (31.0-37.0) g/dL RDW 13.5 (11.5-15.5) % Plt Count 240 (150-450) k/uL Neutrophils % 64 % Lymphocytes % 17 % Monocytes % 5 % Eosinophils % 10 % Basophils % 1 % Neutrophils # 4.7 (1.3-7.7) k/uL Lymphocytes # 1.2 (1.0-4.8) k/uL Monocytes # 0.4 (0-1.0) k/uL Eosinophils # 0.8 H (0-0.7) k/uL Basophils # 0.1 (0-0.2) k/uL Sodium 141 (137-145) mmol/L Potassium 4.2 (3.5-5.1) mmol/L Chloride 105 (98-107) mmol/L Carbon Dioxide 27 (22-30) mmol/L Anion Gap 9 mmol/L BUN 18 H (7-17) mg/dL Creatinine 0.67 (0.52-1.04) mg/dL Est GFR (CKD-EPI)AfAm >90 (>60 ml/min/1.73 sqM) Est GFR (CKD-EPI)NonAf 83 (>60 ml/min/1.73 sqM) Glucose 117 H (74-99) mg/dL Calcium 9.7 (8.4-10.2) mg/dL - Radiology Data Radiology results: report reviewed (CT brain CTA negative for acute disease), image reviewed Disposition Clinical Impression: Headache Disposition: HOME SELF-CARE Condition: Good Instructions (If sedation given, give patient instructions): Acute Headache (E D) Is patient prescribed a controlled substance at d/c from ED?: No Referrals: Sondra Quintero MD [Primary Care Provider] - 1-2 days
--- NOTE | 2019-01-06 12:49 | CT ---
EXAMINATION TYPE: CT brain wo con DATE OF EXAM: 01/06/2019 HISTORY: Migraine, dizziness and headache CT DLP: 972.3 mGycm. Automated Exposure Control for Dose Reduction was Utilized. TECHNIQUE: CT scan of the head is performed without contrast. COMPARISON: MRI brain March 19, 2018. FINDINGS: There is no acute intracranial hemorrhage or midline shift identified. There is diffuse v entricular and sulcal prominence consistent with diffuse age-related cerebral atrophy. There is low- attenuation in the periventricular white matter consistent with chronic small vessel ischemic change. Probable small arachnoid cyst anterior left middle cranial fossa axial most 11 is unchanged from MRI . The globes are intact and the visualized sinuses are clear. IMPRESSION: No acute intracranial hemorrhage or midline shift. There is [id number] diffuse ag e-related cerebral atrophy and chronic small vessel ischemic change redemonstrated. No significant c hange from prior MRI.
--- NOTE | 2019-01-06 12:56 | CT ---
EXAMINATION TYPE: CT angio COW [place] DATE OF EXAM: 01/06/2019 12:49 PM COMPARISON: MRI brain March 19, 2018 HISTORY: Migraine, dizziness and gait instability CT DLP: 579.3 mGycm Automated exposure control for dose reduction was used. TECHNIQUE: Performed with IV Contrast, patient injected with 100 mL of Isovue 370. 3D reconstructed images are created on an independent workstation and reviewed.. FINDINGS: Dominant right vertebral artery. Vertebral arteries are patent to basilar junction. Patent bilateral posterior communicating arteries. No significant focal stenosis or aneurysmal change in the posterior circulation. There is small size but patent anterior communicating artery redemonstrated. No aneurysmal change or significant focal stenosis in the anterior circulation. Mild calcified plaque supraclinoid segments b ilaterally. IMPRESSION: No aneurysmal change at the level of the [place].
[2019-01-06 14:13] VITALS: BP 138/70; PULSE 58; RESP 18
== END 2019-01-06 14:13 | disposition home or self-care (01) ==
LOC: EC 10:43
DX: R51 Headache (principal); K21.9 Gastro-esophageal reflux disease without esophagitis; E78.5 Hyperlipidemia, unspecified; I10 Essential (primary) hypertension; M19.90 Unspecified osteoarthritis, unspecified site; Z86.73 Personal history of transient ischemic attack (TIA), and cerebral infarction without residual deficits; Z79.1 Long term (current) use of non-steroidal anti-inflammatories (NSAID); Z79.82 Long term (current) use of aspirin; Z79.899 Other long term (current) drug therapy
CPT/HCPCS: 36415; 80048; 85025; 70496; 70450; 99284; 96374; 96375; 96361; J2270; J2405; Q9967

== ENCOUNTER → 2019-02-08 | Outpatient (CLI) | payer MEDICARE ==
--- NOTE | 2019-02-08 12:23 | MR ---
EXAMINATION TYPE: MR hip RT wo con DATE OF EXAM: 02/08/2019 COMPARISON: Outside x-rays of the right hip dated 01/27/2019 HISTORY: Right hip pain TECHNIQUE: Standard multiplanar, multisequence MRI of the right hip per departmental protocol. FINDINGS: The bilateral femoral heads maintain normal rounded contour. There is cephalization joint s pace narrowing of the hip joints, symmetric bilaterally. There is acetabular sclerosis that is mild. There is asymmetric subchondral cyst formation on the right and not seen on the last. Subchondral cys t formation is present of the lateral superior acetabulum mid and posteriorly. No subchondral cysts n ear the chondral labral junction. Within the limitations of this nonarthrographic technique there is no evidence of displaced labral tear. Osseous subcortical cyst is also seen in the posterior inferior femoral head. No acute fracture identified. Bone marrow signal is overall within normal limits. No e vidence of avascular necrosis or femoral head collapse. Sacroiliac joints appear symmetric. T1-weight ed imaging demonstrates no suspicious bone marrow replacing process. Presumed postsurgical change at L5-S1 with susceptibility artifact. Slight paraspinal muscular atrophy in the inferior paraspinal mus cles. There is fluid over the right greater trochanter and slight high signal in the insertional fibers of the gluteal musculature on the greater trochanter. Fluid is also seen in the left hip joint, small ef fusion. Sigmoid diverticula are noted without pericolonic fat stranding. Cystic areas are seen within the abd omen on the coronal T2 weighted images, possible large renal cysts/cystic lesions. Renal ultrasound i s recommended. IMPRESSION: 1. Moderate bilateral femoral acetabular arthropathy, right greater than left with subchondral cyst f ormation on the right. No acute fracture, no suspicious bone marrow replacing process, no dislocation , and no evidence of avascular necrosis. 2. Greater trochanteric bursitis on the right (moderate) with mild insertional fibers gluteal tendino sis. 3. Small left femoral acetabular joint effusion. 4. Cystic lesions partially visualized in the left abdomen, possible renal cysts. Renal ultrasound is recommended for initial evaluation. 5. Sigmoid diverticula incidentally seen.
== END | disposition home or self-care (01) ==
LOC: RADMRIMAIN 07:22
PROVIDERS: ATTEND Orthopaedic Surgery
DX: M16.11 Unilateral primary osteoarthritis, right hip (principal); M70.61 Trochanteric bursitis, right hip; M25.851 Other specified joint disorders, right hip

== ENCOUNTER 2019-04-26 15:35 | Emergency (ER) | payer MEDICARE ==
[2019-04-26 15:54] VITALS: RESP 18
[2019-04-26] MEDS ORDERED: ONDANSETRON 4 MG/2 ML VIAL IVP STA (16:35)
[2019-04-26] MEDS ORDERED: SODIUM CHLORIDE 0.9% 500 ML 500 ML IV STA (16:35)
[2019-04-26] MEDS ORDERED: KETOROLAC 30 MG/ML 1 ML VIAL IVP STA (16:35)
--- NOTE | 2019-04-26 16:39 | ED ---
General Adult HPI - General Chief complaint: Abdominal Pain Stated complaint: stomach pain Time Seen by Provider: 04/26/19 16:16 Source: patient, family, RN notes reviewed Mode of arrival: wheelchair Limitations: no limitations - History of Present Illness Initial comments: 78-year-old female with a past medical history hyperlipidemia, hypertension, VANESSA D, TIA presents to the emergency department for a chief complaint of abdominal pain. Patient states this is upper abdominal pain in the epigastrium and right upper quadrant. States that it has been ongoing since last night. Discussed the pain as a sharp pain that is constant in nature. Denies chest pain or shortness of breath. no associated diaphoresis. States she is having associated nausea vomiting with this. She has only been able to tolerate some chicken noodle soup today. Patient denies any past abdominal surgeries besides a hysterectomy. Denies fevers or chills.Patient has no other complaints at this time including shortness of breath, chest pain, abdominal pain, nausea or vomit ing, headache, or visual changes. - Related Data Home Medications Medication Instructions Recorded Confirmed Aspirin 81 mg PO DAILY 01/02/16 01/06/19 Atorvastatin [Lipitor] 40 mg PO HS 01/02/16 01/06/19 Calcium Carbonate [Calcium] 600 mg PO BID 01/02/16 01/06/19 Metoprolol Tartrate [Lopressor] 25 mg PO BID 01/02/16 01/06/19 Omeprazole 20 mg PO DAILY 01/02/16 01/06/19 Ubidecarenone [Co Q-10] 200 mg PO DAILY 01/02/16 01/06/19 amLODIPine [Norvasc] 5 mg PO BID 01/02/16 01/06/19 Donepezil HCl [Aricept] 5 mg PO DAILY 06/03/18 01/06/19 Losartan/Hydrochlorothiazide 1 tab PO HS 06/03/18 01/06/19 [Losartan-Hctz 50-12.5 mg Tab] Naproxen Sodium [Aleve] 440 mg PO BID PRN 01/06/19 01/06/19 Allergies Allergy/AdvReac Type Severity Reaction Status Date / Time No Known Allergies Allergy Verified 04/26/19 15:50 Review of Systems ROS Statement: Those systems with pertinent positive or pertinent negative responses have been documented in the HPI. ROS Other: All systems not noted in ROS Statement are negative. Past Medical History Past Medical History: CVA/TIA, GERD/Reflux, Hyperlipidemia, Hypertension, Memory Impairment, Osteoarthritis (OA) Additional Past Medical History / Comment(s): TIA, STATES FORGETFUL, HX VERTIGO, ALLERGIES., STATES LEFT HAND VERY PAINFUL. History of Any Multi-Drug Resistant Organisms: None Reported Past Surgical History: Back Surgery, Hysterectomy Past Anesthesia/Blood Transfusion Reactions: No Reported Reaction Past Psychological History: No Psychological Hx Reported Smoking Status: Never smoker Past Alcohol Use History: None Reported Past Drug Use History: None Reported - Past Family History Brother(s) Family Medical History: Cancer Mother History Unknown: Yes Additional Family Medical History / Comment(s): Mother Father History Unknown: Yes Additional Family Medical History / Comment(s): Father General Exam Limitations: no limitations General appearance: alert, in no apparent distress Head exam: Present: atraumatic, normocephalic, normal inspection Eye exam: Present: normal appearance, PERRL, EOMI. Absent: scleral icterus, conjunctival injection, periorbital swelling ENT exam: Present: normal exam, mucous membranes moist Neck exam: Present: normal inspection, full ROM. Absent: tenderness, meningis mus, lymphadenopathy Respiratory exam: Present: normal lung sounds bilaterally. Absent: respiratory distress, wheezes, rales, rhonchi, stridor Cardiovascular Exam: Present: regular rate, normal rhythm, normal heart sounds. Absent: systolic murmur, diastolic murmur, rubs, gallop, clicks GI/Abdominal exam: Present: soft, tenderness (Tenderness to the epigastric area and right upper quadrant. No left upper quadrant tenderness. No lower abdominal tenderness.), normal bowel sounds. Absent: distended, guarding, rebound, rigid Neurological exam: Present: alert Course Vital Signs 04/26/19 15:51 Temperature 97.9 F Pulse Rate 73 Respiratory 18 Rate Blood Pressure 154/68 O2 Sat by Pulse 95 Oximetry EKG Findings - EKG Comments: EKG Findings:: Normal sinus rhythm, ventricular rate 72, WA int 158, QTC 459 Medical Decision Making - Medical Decision Making Vitals are stable. Physical exam revealed mild epigastric and right upper quadrant tenderness. Patient did not have any nausea vomiting here in the emergency department. Abdomen ultrasound showed no gallstones or dilated ducts. CBC CMP unremarkable. Troponin is negative. The onset of symptoms was greater than 12 hours ago and is to be expected to be elevated if pt had ACS involvement. Urinalysis unremarkable. Patient was given Toradol and had si gnificant improvement in pain. Discussed case with Dr. Mcmahon. Given patient's improvement and abdominal pain without any nausea vomiting here in the emergency department she can be discharged home to follow up with primary care. She will also be given surgery referral as she may need additional workup on her gallbladder. I did discuss strict return parameters and if she has any worsening symptoms to return here to the emergency department. - Lab Data Result diagrams: 04/26/19 17:01 04/26/19 17: Lab Results 04/26/19 04/26/19 04/26/19 Range/Units 17: 17: 17: WBC 9.4 (3.8-10.6) k/uL RBC 4.95 (3.80-5.40) m/uL Hgb 13.8 (11.4-16.0) gm/dL Hct 42.2 (34.0-46.0) % MCV 85.2 D (80.0-100.0) fL MCH 28.0 (25.0-35.0) pg MCHC 32.8 (31.0-37.0) g/dL RDW 12.9 (11.5-15.5) % Plt Count 214 (150-450) k/uL Neutrophils % 79 % Lymphocytes % 12 % Monocytes % 6 % Eosinophils % 1 % Basophils % 1 % Neutrophils # 7.5 (1.3-7.7) k/uL Lymphocytes # 1.1 (1.0-4.8) k/uL Monocytes # 0.5 (0-1.0) k/uL Eosinophils # 0.1 (0-0.7) k/uL Basophils # 0.1 (0-0.2) k/uL Sodium 140 (137-145) mmol/L Potassium 3.8 (3.5-5.1) mmol/L Chloride 106 (98-107) mmol/L Carbon Dioxide 27 (22-30) mmol/L Anion Gap 7 mmol/L BUN 18 H (7-17) mg/dL Creatinine 0.55 (0.52-1.04) mg/dL Est GFR (CKD-EPI)AfAm >90 (>60 ml/min/1.73 sqM) Est GFR (CKD-EPI)NonAf 89 (>60 ml/min/1.73 sqM) Glucose 114 H (74-99) mg/dL Plasma Lactic Acid Jesu 2.0 (0.7-2.0) mmol/L Calcium 9.1 (8.4-10.2) mg/dL Total Bilirubin 0.5 (0.2-1.3) mg/dL AST 29 (14-36) U/L ALT 19 (4-34) U/L Alkaline Phosphatase 82 (38-126) U/L Troponin I (0.000-0.034) ng/mL Total Protein 7.1 (6.3-8.2) g/dL Albumin 4.3 (3.5-5.0) g/dL Amylase 58 (30-110) U/L Lipase 74 (23-300) U/L Urine Color Urine Appearance (Clear) Urine pH (5.0-8.0) Ur Specific [place] (1.001-1.035) Urine Protein (Negative) Urine Glucose (UA) (Negative) Urine Ketones (Negative) Urine Blood (Negative) Urine Nitrite (Negative) Urine Bilirubin (Negative) Urine Urobilinogen (<2.0) mg/dL Ur Leukocyte Esterase (Negative) Urine RBC (0-5) /hpf Urine WBC (0-5) /hpf Ur Squamous Epith Cells (0-4) /hpf Urine Mucus (None) /hpf 04/26/19 04/26/19 Range/Units 17:01 17:01 WBC (3.8-10.6) k/uL RBC (3.80-5.40) m/uL Hgb (11.4-16.0) gm/dL Hct (34.0-46.0) % MCV (80.0-100.0) fL MCH (25.0-35.0) pg MCHC (31.0-37.0) g/dL RDW (11.5-15.5) % Plt Count (150-450) k/uL Neutrophils % % Lymphocytes % % Monocytes % % Eosinophils % % Basophils % % Neutrophils # (1.3-7.7) k/uL Lymphocytes # (1.0-4.8) k/uL Monocytes # (0-1.0) k/uL Eosinophils # (0-0.7) k/uL Basophils # (0-0.2) k/uL Sodium (137-145) mmol/L Potassium (3.5-5.1) mmol/L Chloride (98-107) mmol/L Carbon Dioxide (22-30) mmol/L Anion Gap mmol/L BUN (7-17) mg/dL Creatinine (0.52-1.04) mg/dL Est GFR (CKD-EPI)AfAm (>60 ml/min/1.73 sqM) Est GFR (CKD-EPI)NonAf (>60 ml/min/1.73 sqM) Glucose (74-99) mg/dL Plasma Lactic Acid Jesu (0.7-2.0) mmol/L Calcium (8.4-10.2) mg/dL Total Bilirubin (0.2-1.3) mg/dL AST (14-36) U/L ALT (4-34) U/L Alkaline Phosphatase (38-126) U/L Troponin I <0.012 (0.000-0.034) ng/mL Total Protein (6.3-8.2) g/dL Albumin (3.5-5.0) g/dL Amylase (30-110) U/L Lipase (23-300) U/L Urine Color Yellow Urine Appearance Clear (Clear) Urine pH 6.5 (5.0-8.0) Ur Specific [place] 1.021 (1.001-1.035) Urine Protein Negative (Negative) Urine Glucose (UA) Trace H (Negative) Urine Ketones Negative (Negative) Urine Blood Negative (Negative) Urine Nitrite Negative (Negative) Urine Bilirubin Negative (Negative) Urine Urobilinogen <2.0 (<2.0) mg/dL Ur Leukocyte Esterase Small H (Negative) Urine RBC 1 (0-5) /hpf Urine WBC 4 (0-5) /hpf Ur Squamous Epith Cells 1 (0-4) /hpf Urine Mucus Rare H (None) /hpf Disposition Clinical Impression: Abdominal pain Disposition: HOME SELF-CARE Condition: Good Instructions (If sedation given, give patient instructions): Abdominal Pain (ED) Additional Instructions: Please follow up with primary care in 1-2 days. Follow-up with surgery as well. If you're having any worsening symptoms return to the emergency department. Is patient prescribed a controlled substance at d/c from ED?: No Referrals: Sondra Quintero MD [Primary Care Provider] - 1-2 days José Lewis MD [STAFF PHYSICIAN] - 1-2 days Time of Disposition: 18:23
[2019-04-26 17:13] LABS: Basophils # (A) 0.1 k/uL (0-0.2); Basophils % (A) 1 %; Eosinophils # (A) 0.1 k/uL (0-0.7); Eosinophils % (A) 1 %; HCT 42.2 % (34.0-46.0); HGB 13.8 gm/dL (11.4-16.0); Lymphocytes # (A) 1.1 k/uL (1.0-4.8); Lymphocytes % (A) 12 %; MCHC 32.8 g/dL (31.0-37.0); Mean Platelet Volume 8.5; Monocytes # (A) 0.5 k/uL (0-1.0); Monocytes % (A) 6 %; Neutrophils # (A) 7.5 k/uL (1.3-7.7); Neutrophils % (A) 79 %; Platelet Count 214 k/uL (150-450); RBC 4.95 m/uL (3.80-5.40); RDW 12.9 % (11.5-15.5); WBC 9.4 k/uL (3.8-10.6)
[2019-04-26 17:18] LABS: MCV 85.2 fL (80.0-100.0)
[2019-04-26 17:23] LABS: Appearance,Urine Clear (Clear); Bilirubin,Urine Negative (Negative); Blood,Urine Negative (Negative); Color,Urine Yellow; Glucose,Urine (UA) Trace (Negative); Ketones,Urine Negative (Negative); Leukocyte Esterase,Urine Small (Negative); Mucus,Urine Rare /hpf; Nitrite,Urine Negative (Negative); PH, Urine 6.5 (5.0-8.0); Protein,Urine Negative (Negative); RBC,Urine 1 /hpf (0-5); Specific Gravity,Urine 1.021 (1.001-1.035); Squamous Epithelial Cell,Urine 1 /hpf (0-4); Urobilinogen,Urine <2.0 mg/dL (<2.0); WBC,Urine 4 /hpf (0-5)
[2019-04-26 17:26] LABS: ALT 19 U/L (4-34); AST 29 U/L (14-36); African American GFR (CKD) >90 (>60 ml/min/1.73 sqM); Albumin 4.3 g/dL (3.5-5.0); Alkaline Phosphatase 82 U/L (38-126); Amylase 58 U/L (30-110); Anion Gap 7 mmol/L; Blood Urea Nitrogen 18 mg/dL (7-17); Calcium 9.1 mg/dL (8.4-10.2); Carbon Dioxide 27 mmol/L (22-30); Chloride 106 mmol/L (98-107); Glucose 114 mg/dL (74-99); Non-African American GFR(CKD) 89 (>60 ml/min/1.73 sqM); Potassium 3.8 mmol/L (3.5-5.1); Sodium 140 mmol/L (137-145); Total Bilirubin 0.5 mg/dL (0.2-1.3); Total Protein 7.1 g/dL (6.3-8.2)
--- NOTE | 2019-04-26 18:03 | US ---
EXAMINATION TYPE: US abdomen limited DATE OF EXAM: 04/26/2019 COMPARISON: NONE CLINICAL HISTORY: epigastric/ruq pain. Epigastric/RUQ pain x 1 day. EXAM MEASUREMENTS: Liver Length: 16.3 cm Gallbladder Wall: 0.26 cm CBD: 0.37 cm Right Kidney: 11.9 x 5.1 x 4.3 cm. Limited due to gas. Pancreas: Appears hyperechoic. Limited visibility of tail. Liver: Septated anechoic areas seen within the left lobe of the liver. #1 measures: 1.6 x 1.4 x 1.3 cm. #2 measures: 1.2 x 1.6 x 1.1 cm. Gallbladder: Appears to be anechoic. Evidence for sonographic Eddy's sign: No CBD: Appears to be wnl. Right Kidney: Hypoechoic area seen laterally measurin.8 x 0.6 x 0.6 cm. IMPRESSION: No gallstones or dilated ducts. Small right renal cortical cyst. Small hepatic cysts.
[2019-04-26 18:23] VITALS: BP 150/81; PULSE 70; TEMP 98.1
== END 2019-04-26 18:36 | disposition home or self-care (01) ==
LOC: EC 15:35
DX: R10.13 Epigastric pain (principal); R10.11 Right upper quadrant pain; R11.2 Nausea with vomiting, unspecified; R10.816 Epigastric abdominal tenderness; R10.811 Right upper quadrant abdominal tenderness; I10 Essential (primary) hypertension; E78.5 Hyperlipidemia, unspecified; K21.9 Gastro-esophageal reflux disease without esophagitis; Z79.82 Long term (current) use of aspirin; Z79.899 Other long term (current) drug therapy; Z86.73 Personal history of transient ischemic attack (TIA), and cerebral infarction without residual deficits; Z90.710 Acquired absence of both cervix and uterus
CPT/HCPCS: 36415; 76705; 80053; 81001; 82150; 83605; 83690; 84484; 85025; 93005; 99284

== ENCOUNTER → 2019-04-30 | Outpatient (CLI) | payer MEDICARE ==
--- NOTE | 2019-05-03 09:34 | MM ---
Reason for exam: screening (asymptomatic). Last mammogram was performed 1 year and 4 months ago. Physical Findings: A clinical breast exam by your physician is recommended on an annual basis and results should be correlated with mammographic findings. MG 3D Screening Mammo W/Cad Bilateral CC and MLO view(s) were taken. Prior study comparison: December 30, 2017, mammogram, performed at [facility]. December 25, 2016, mammogram, performed at [facility]. The breast tissue is heterogeneously dense. This may lower the sensitivity of mammography. Stable benign calcifications. There is chronic nodularity in the right breast. No significant changes when compared with prior studies. ASSESSMENT: Benign, BI-RAD 2 RECOMMENDATION: Routine screening mammogram of both breasts in 1 year.
== END | disposition home or self-care (01) ==
LOC: RADMAMWWP 07:24
PROVIDERS: ATTEND Family Medicine
DX: Z12.31 Encounter for screening mammogram for malignant neoplasm of breast (principal)
CPT/HCPCS: 77063; 77067

== ENCOUNTER 2019-10-06 17:46 | Inpatient (IN) | payer MEDICARE ==
[2019-10-06] MEDS ORDERED: SODIUM CHLORIDE 0.9% 500 ML 500 ML IV STA (18:43)
--- NOTE | 2019-10-06 19:10 | ED ---
General Adult HPI - General Chief complaint: Syncope Stated complaint: Syncope Time Seen by Provider: 10/06/19 18:39 Source: patient, RN notes reviewed, old records reviewed Mode of arrival: EMS Limitations: no limitations - History of Present Illness Initial comments: 78-year-old female presents for evaluation of altered level of consciousness lasting approximately 10 minutes. Patient had been more fatigued than usual, she slept later than she normally would today. She had gone into her garden and then went to check the mail and subsequently had a seizure or syncopal episode. She does have a history of seizures and her had witnessed this event, states he felt this was a seizure. She did not have tonic-cloni clonic shaking. She was unconscious for approximately 10 minutes. She was in a chair at the time and there is no reported injury. She denies any preceding chest pain or palpitations. She has been eating and drinking well. No fever. No urinary incontinence, no postictal period. - Related Data Home Medications Medication Instructions Recorded Confirmed Aspirin 81 mg PO DAILY 01/02/16 01/06/19 Atorvastatin [Lipitor] 40 mg PO HS 01/02/16 01/06/19 Calcium Carbonate [Calcium] 600 mg PO BID 01/02/16 01/06/19 Metoprolol Tartrate [Lopressor] 25 mg PO BID 01/02/16 01/06/19 Omeprazole 20 mg PO DAILY 01/02/16 01/06/19 Ubidecarenone [Co Q-10] 200 mg PO DAILY 01/02/16 01/06/19 amLODIPine [Norvasc] 5 mg PO BID 01/02/16 01/06/19 Donepezil HCl [Aricept] 5 mg PO DAILY 06/03/18 01/06/19 Losartan/Hydrochlorothiazide 1 tab PO HS 06/03/18 01/06/19 [Losartan-Hctz 50-12.5 mg Tab] Naproxen Sodium [Aleve] 440 mg PO BID PRN 01/06/19 01/06/19 Allergies Allergy/AdvReac Type Severity Reaction Status Date / Time No Known Allergies Allergy Verified 10/06/19 17:59 Review of Systems ROS Statement: Those systems with pertinent positive or pertinent negative responses have been documented in the HPI. ROS Other: All systems not noted in ROS Statement are negative. Past Medical History Past Medical History: CVA/TIA, GERD/Reflux, Hyperlipidemia, Hypertension, Memory Impairment, Osteoarthritis (OA) Additional Past Medical History / Comment(s): TIA, STATES FORGETFUL, HX VERTIGO, ALLERGIES., STATES LEFT HAND VERY PAINFUL. History of Any Multi-Drug Resistant Organisms: None Reported Past Surgical History: Back Surgery, Hysterectomy Past Anesthesia/Blood Transfusion Reactions: No Reported Reaction Past Psychological History: No Psychological Hx Reported Smoking Status: Never smoker Past Alcohol Use History: None Reported Past Drug Use History: None Reported - Past Family History Brother(s) Family Medical History: Cancer Mother History Unknown: Yes Additional Family Medical History / Comment(s): Mother Father History Unknown: Yes Additional Family Medical History / Comment(s): Father General Exam Limitations: no limitations General appearance: alert, in no apparent distress Head exam: Present: atraumatic, normocephalic Eye exam: Present: normal appearance, PERRL ENT exam: Present: normal exam Neck exam: Present: normal inspection. Absent: tenderness, meningismus Respiratory exam: Present: normal lung sounds bilaterally. Absent: respiratory distress, wheezes Cardiovascular Exam: Present: regular rate, normal rhythm GI/Abdominal exam: Present: soft. Absent: distended, tenderness, guarding Extremities exam: Present: normal inspection, normal capillary refill. Absent: pedal edema Back exam: Present: normal inspection, full ROM Neurological exam: Present: alert, oriented X3, CN II-XII intact. Absent: motor sensory deficit Psychiatric exam: Present: normal affect, normal mood Skin exam: Present: warm, dry, intact. Absent: cyanosis, diaphoretic Course Vital Signs 10/06/19 17:57 Temperature 97.9 F Pulse Rate 70 Respiratory 16 Rate Blood Pressure 144/72 O2 Sat by Pulse 94 L Oximetry EKG Findings - EKG Comments: EKG Findings:: EKG: Normal sinus rhythm, LVH, rate of 74, WY interval 178, QRS duration 82, QTC 446, no ST segment elevation. Medical Decision Making - Medical Decision Making 78-year-old female with history suggestive of syncope. Workup in the emergency department reveals EKG was sinus rhythm, she has a CBC showed mild leukocytosis, normal hemoglobin, she has normal electrolytes. Chest x-ray negative for acute cardiac primary disease, head CT negative for intracranial hemorrhage or mass effect. Negative troponin. She remains in sinus rhythm while the emergency department. Given the prolonged period of unconsciousness, and concern for cardiogenic syncope will admit this patient, echo, telemetry, cardiology consultation. Case discussed with Dr. Barrios - Lab Data Result diagrams: 10/06/19 18:46 10/06/19 18:46 Lab Results 10/06/19 10/06/19 10/06/19 Range/Units 18:46 18:46 18:46 WBC 12.2 H (3.8-10.6) k/uL RBC 4.77 (3.80-5.40) m/uL Hgb 13.3 (11.4-16.0) gm/dL Hct 40.9 (34.0-46.0) % MCV 85.8 (80.0-100.0) fL MCH 27.9 (25.0-35.0) pg MCHC 32.5 (31.0-37.0) g/dL RDW 13.1 (11.5-15.5) % Plt Count 219 (150-450) k/uL Neutrophils % 88 % Lymphocytes % 7 % Monocytes % 4 % Eosinophils % 1 % Basophils % 0 % Neutrophils # 10.7 H (1.3-7.7) k/uL Lymphocytes # 0.8 L (1.0-4.8) k/uL Monocytes # 0.5 (0-1.0) k/uL Eosinophils # 0.1 (0-0.7) k/uL Basophils # 0.0 (0-0.2) k/uL PT 10.2 (9.0-12.0) sec INR 1.0 (<1.2) APTT 21.3 L (22.0-30.0) sec Sodium 137 (137-145) mmol/L Potassium 3.7 (3.5-5.1) mmol/L Chloride 105 (98-107) mmol/L Carbon Dioxide 26 (22-30) mmol/L Anion Gap 6 mmol/L BUN 19 H (7-17) mg/dL Creatinine 0.52 (0.52-1.04) mg/dL Est GFR (CKD-EPI)AfAm >90 (>60 ml/min/1.73 sqM) Est GFR (CKD-EPI)NonAf >90 (>60 ml/min/1.73 sqM) Glucose 102 H (74-99) mg/dL Calcium 9.0 (8.4-10.2) mg/dL Magnesium 2.1 (1.6-2.3) mg/dL Total Bilirubin 0.5 (0.2-1.3) mg/dL AST 24 (14-36) U/L ALT 18 (4-34) U/L Alkaline Phosphatase 91 (38-126) U/L Troponin I (0.000-0.034) ng/mL Total Protein 6.7 (6.3-8.2) g/dL Albumin 4.1 (3.5-5.0) g/dL 10/06/19 Range/Units 18:46 WBC (3.8-10.6) k/uL RBC (3.80-5.40) m/uL Hgb (11.4-16.0) gm/dL Hct (34.0-46.0) % MCV (80.0-100.0) fL MCH (25.0-35.0) pg MCHC (31.0-37.0) g/dL RDW (11.5-15.5) % Plt Count (150-450) k/uL Neutrophils % % Lymphocytes % % Monocytes % % Eosinophils % % Basophils % % Neutrophils # (1.3-7.7) k/uL Lymphocytes # (1.0-4.8) k/uL Monocytes # (0-1.0) k/uL Eosinophils # (0-0.7) k/uL Basophils # (0-0.2) k/uL PT (9.0-12.0) sec INR (<1.2) APTT (22.0-30.0) sec Sodium (137-145) mmol/L Potassium (3.5-5.1) mmol/L Chloride (98-107) mmol/L Carbon Dioxide (22-30) mmol/L Anion Gap mmol/L BUN (7-17) mg/dL Creatinine (0.52-1.04) mg/dL Est GFR (CKD-EPI)AfAm (>60 ml/min/1.73 sqM) Est GFR (CKD-EPI)NonAf (>60 ml/min/1.73 sqM) Glucose (74-99) mg/dL Calcium (8.4-10.2) mg/dL Magnesium (1.6-2.3) mg/dL Total Bilirubin (0.2-1.3) mg/dL AST (14-36) U/L ALT (4-34) U/L Alkaline Phosphatase (38-126) U/L Troponin I <0.012 (0.000-0.034) ng/mL Total Protein (6.3-8.2) g/dL Albumin (3.5-5.0) g/dL Disposition Clinical Impression: Syncope Disposition: ADMITTED IP TO THIS [facility] Condition: Stable Is patient prescribed a controlled substance at d/c from ED?: No Referrals: Sondra Quintero MD [Primary Care Provider] - 1-2 days Decision to Admit Reason: Admit from EC Decision Date: 10/06/19 Decision Time: 19:47
[2019-10-06 19:13] LABS: Basophils % (A) 0 %; Eosinophils # (A) 0.1 k/uL (0-0.7); Eosinophils % (A) 1 %; HCT 40.9 % (34.0-46.0); HGB 13.3 gm/dL (11.4-16.0); Lymphocytes # (A) 0.8 k/uL (1.0-4.8); Lymphocytes % (A) 7 %; MCH 27.9 pg (25.0-35.0); MCHC 32.5 g/dL (31.0-37.0); MCV 85.8 fL (80.0-100.0); Mean Platelet Volume 8.3; Monocytes # (A) 0.5 k/uL (0-1.0); Monocytes % (A) 4 %; Neutrophils # (A) 10.7 k/uL (1.3-7.7); Neutrophils % (A) 88 %; Platelet Count 219 k/uL (150-450); RBC 4.77 m/uL (3.80-5.40); RDW 13.1 % (11.5-15.5); WBC 12.2 k/uL (3.8-10.6)
[2019-10-06 19:21] LABS: ALT 18 U/L (4-34); AST 24 U/L (14-36); African American GFR (CKD) >90 (>60 ml/min/1.73 sqM); Albumin 4.1 g/dL (3.5-5.0); Alkaline Phosphatase 91 U/L (38-126); Anion Gap 6 mmol/L; Blood Urea Nitrogen 19 mg/dL (7-17); Carbon Dioxide 26 mmol/L (22-30); Chloride 105 mmol/L (98-107); Glucose 102 mg/dL (74-99); Magnesium 2.1 mg/dL (1.6-2.3); Non-African American GFR(CKD) >90 (>60 ml/min/1.73 sqM); Potassium 3.7 mmol/L (3.5-5.1); Sodium 137 mmol/L (137-145); Total Bilirubin 0.5 mg/dL (0.2-1.3); Total Protein 6.7 g/dL (6.3-8.2)
--- NOTE | 2019-10-06 19:21 | XR ---
EXAMINATION TYPE: XR chest 2V DATE OF EXAM: 10/06/2019 COMPARISON: Chest x-ray June 03, 2018. HISTORY: Syncope and weakness. TECHNIQUE: Frontal and lateral views of the chest are obtained. FINDINGS: There is some chronic parenchymal change without suspicious focal air space opacity, pleur al effusion, or pneumothorax seen. The cardiac silhouette size remains within normal limits with ath erosclerotic change aortic knob. The osseous structures are demineralized. Overlying EKG leads are again seen. IMPRESSION: No acute cardiopulmonary process. No significant change from prior.
[2019-10-06 19:23] LABS: Prothrombin Time 10.2 sec (9.0-12.0)
--- NOTE | 2019-10-06 19:23 | CT ---
EXAMINATION TYPE: CT brain wo con DATE OF EXAM: 10/06/2019 HISTORY: Syncopal episode with possible injury CT DLP: 1188.4 mGycm. Automated Exposure Control for Dose Reduction was Utilized. TECHNIQUE: CT scan of the head is performed without contrast. COMPARISON: CT brain January 06, 2019. FINDINGS: There is no acute intracranial hemorrhage or midline shift identified. There is diffuse v entricular and sulcal prominence consistent with diffuse age-related cerebral atrophy. There is low- attenuation in the periventricular white matter consistent with chronic small vessel ischemic change. The globes are intact and the visualized sinuses are clear. The calvarium is intact. IMPRESSION: No acute intracranial hemorrhage or midline shift. There is mild to moderate diffuse ce rebral atrophy and chronic small vessel ischemic changes redemonstrated. No significant change from prior CT.
[2019-10-06 19:34] LABS: Partial Thromboplastin Time 21.3 sec (22.0-30.0)
[2019-10-06] MEDS ORDERED: NALOXONE 0.4 MG/ML 1 ML VIAL IV PRN (19:42)
[2019-10-06] MEDS: SODIUM CHLORIDE 0.9% 1,000 ML IV SCH (19:59)
[2019-10-06 20:12] LABS: Appearance,Urine Clear (Clear); Bilirubin,Urine Negative (Negative); Blood,Urine Negative (Negative); Color,Urine Yellow; Glucose,Urine (UA) Negative (Negative); Hyaline Casts,Urine 3 /lpf (0-2); Ketones,Urine Negative (Negative); Leukocyte Esterase,Urine Trace (Negative); Mucus,Urine Rare /hpf; Nitrite,Urine Negative (Negative); Protein,Urine Trace (Negative); RBC,Urine 1 /hpf (0-5); Specific Gravity,Urine 1.018 (1.001-1.035); Squamous Epithelial Cell,Urine <1 /hpf (0-4); Urobilinogen,Urine <2.0 mg/dL (<2.0); WBC,Urine 3 /hpf (0-5)
--- NOTE | 2019-10-07 03:58 | P.HPIM ---
History of Present Illness H&P Date: 10/06/19 The patient was seen and examined in the emergency room on 10/05 at 8:30 PM The patient is an 78-year-old female with a PMH of hypertension, hyperlipidemia, history of TIA, previous history of seizure (patient does not recall when exactly she had her last seizure, though states that it was many years ago and has not been on any medications) osteoarthritis, and memory impairment presented to the ED after an episode of impaired consciousness. The patient notes that she woke up this morning slightly later than usual, and had proceeded to do all of her normal chores and was working in her garden. She subsequently walked to her mailbox and walked back to her home and sat down on a chair on her porch with her when she suddenly became unresponsive with loss of consciousness. Attempted to contact the for further information though received no answer ([phone]). As per the ED documentation and the patient, the felt that she might of had a seizure, though there were no reports of abnormal shaking episodes. The patient also denied losing control over bowel or bladder. She further denied biting her tongue or frothing at the mouth. She reported at time of interview that she felt as though she was back to her baseline and had no active complaints. The episode lasted roughly 10 minutes after which the patient was back to her baseline. The patient does not remember the episode and does not recall any preceding symptoms. She denied noticing chest discomfort, shortness of breath, palpitations, dizziness, visual disturbances, slurred speech, facial asymmetry, or headache. She also denied abdominal pain, nausea, vomiting, or diarrhea. In the ED, CT brain revealed mild to moderate diffuse cerebral atrophy and chronic small vessel ischemic changes with no acute changes noted. Chest x-ray was unremarkable with EKG showing normal sinus rhythm at 74 bpm with no acute ST/T-wave change is noted, as reviewed by me. Laboratory evaluation revealed a WBC count of 12.2, hemoglobin 13.3, platelets 219, sodium 137, potassium 3.7, BUN 19, creatinine 0.52, troponin less than 0.012, and UA unremarkable. Review of Systems Pertinent positives and negatives as discussed in HPI, a complete review of systems was performed and all other systems are negative. Past Medical History Past Medical History: CVA/TIA, GERD/Reflux, Hyperlipidemia, Hypertension, Memory Impairment, Osteoarthritis (OA) Additional Past Medical History / Comment(s): TIA, STATES FORGETFUL, HX JOHNNY TIGO, ALLERGIES., STATES LEFT HAND VERY PAINFUL. History of Any Multi-Drug Resistant Organisms: None Reported Past Surgical History: Back Surgery, Hysterectomy Past Anesthesia/Blood Transfusion Reactions: No Reported Reaction Past Psychological History: No Psychological Hx Reported Smoking Status: Never smoker Past Alcohol Use History: None Reported Past Drug Use History: None Reported - Past Family History Brother(s) Family Medical History: Cancer Mother History Unknown: Yes Additional Family Medical History / Comment(s): Mother Father History Unknown: Yes Additional Family Medical History / Comment(s): Father Medications and Allergies Home Medications Medication Instructions Recorded Confirmed Type Aspirin 81 mg PO DAILY 01/02/16 10/06/19 History Atorvastatin [Lipitor] 40 mg PO HS 01/02/16 10/06/19 History Calcium Carbonate [Calcium] 600 mg PO BID 01/02/16 10/06/19 History Metoprolol Tartrate [Lopressor] 25 mg PO BID 01/02/16 10/06/19 History Omeprazole 20 mg PO DAILY 01/02/16 10/06/19 History Ubidecarenone [Co Q-10] 200 mg PO DAILY 01/02/16 10/06/19 History amLODIPine [Norvasc] 5 mg PO BID 01/02/16 10/06/19 History Memantine [Namenda] 10 mg PO DAILY 10/06/19 10/06/19 History Triamcinolone 0.1% Cream [Kenalog 1 applic TOPICAL BID 10/06/19 10/06/19 History 0.1% Cream] Valsartan/Hydrochlorothiazide 1 tab PO DAILY 10/06/19 10/06/19 History [Valsartan-Hctz 80-12.5 mg Tab] Allergies Allergy/AdvReac Type Severity Reaction Status Date / Time No Known Allergies Allergy Verified 10/06/19 20:37 Physical Exam Vitals: Vital Signs Temp Pulse Resp BP Pulse Ox 10/06/19 21:11 97.4 F L 78 17 147/69 93 L 10/06/19 17:57 97.9 F 70 16 144/72 94 L Intake and Output 10/06/19 10/06/19 10/06/19 06:59 14:59 22:59 Other: Weight 77.111 kg General: non toxic, no distress, appears at stated age, normal weight Derm: no unusual rashes/lesions no unusual ecchymoses, warm, dry Head: atraumatic, normocephalic, symmetric Eyes: EOMI, no lid lag, anicteric sclera, pupils equal round reactive to light ENT: Nose and ears atraumatic, no thrush, no pharyngeal erythema Neck: No thyromegaly, no cervical lymphadenopathy, trachea midline, supple Mouth: no lip lesion, mucus membranes moist Cardiovascular: S1S2 reg, no murmur, positive posterior tibial pulse bilateral, no edema, capillary refill less than 2 seconds Lungs: CTA bilateral, no rhonchi, no rales , no accessory muscle use Abdominal: soft, nontender to palpation, no guarding, no appreciable organomegaly, normal bowel sounds Ext: no gross muscle atrophy, muscle strength 5 out of 5 in all 4 extremities grossly, no contractures, Neuro: CN II-XI grossly intact, light touch intact all 4 extremities, finger to nose within normal limits Psych: Alert, oriented to person place and time, appropriate affect Results CBC & Chem 7: 10/06/19 18:46 10/06/19 18:46 Labs: Abnormal Lab Results - Last 24 Hours (Table) 10/06/19 10/06/19 10/06/19 Range/Units 18:46 18:46 18:46 WBC 12.2 H (3.8-10.6) k/uL Neutrophils # 10.7 H (1.3-7.7) k/uL Lymphocytes # 0.8 L (1.0-4.8) k/uL APTT 21.3 L (22.0-30.0) sec BUN 19 H (7-17) mg/dL Glucose 102 H (74-99) mg/dL Urine Protein (Negative) Ur Leukocyte Esterase (Negative) Hyaline Casts (0-2) /lpf Urine Mucus (None) /hpf 10/06/19 Range/Units 19:40 WBC (3.8-10.6) k/uL Neutrophils # (1.3-7.7) k/uL Lymphocytes # (1.0-4.8) k/uL APTT (22.0-30.0) sec BUN (7-17) mg/dL Glucose (74-99) mg/dL Urine Protein Trace H (Negative) Ur Leukocyte Esterase Trace H (Negative) Hyaline Casts 3 H (0-2) /lpf Urine Mucus Rare H (None) /hpf Assessment and Plan Plan: Syncope -Unclear etiology at this time -Patient does have a remote history of seizure, though does not recall any de tails regarding her initial episode -- does not recall ever being on anti- epileptics -Possibly cardiac in nature due to no post ictal confusion with absence of tongue biting, urinary incontinence etc. -Obtain echocardiogram, cardiac monitoring, cardiology consult -Seizure, fall, aspiration precautions -Obtain more collateral information from and consider a neurology consult Leukocytosis -No active signs of infection noted -Monitor for now Chronic conditions: Hypertension, hyperlipidemia -Continue with home meds DVT prophylaxis -Heparin subq The patient is admitted with an anticipated less than 2 midnight stay for evaluation of syncope CODE STATUS: No Code Discussed with: Patient Anticipated discharge date: 1-[address]: Home A total of 40 minutes was spent on the care of this complex patient more than 50% of the time was spent in counseling and care coordination.
--- NOTE | 2019-10-07 04:05 | P.PN ---
Progress Note - Text Progress Note Date: 10/07/19 Advanced Care Planning Active Diagnosis: Syncope Persons present: Patient Summary: Discussed the patient's goals of care in great detail. The patient reported that in the event of cardiac arrest, she would not wish to undergo CPR or be placed on a ventilator. She reports that she may consider different forms of life support on an elective basis though would need to discuss further with her . She reports that her primary concern if her condition was to worsen would be her quality of life and her pain control. Explained the different forms of life-support and the details regarding CPR. Will make the patient No Code as per her request. Time spent: Total time spent face to face in education and discussion directly related to ad vanced care plannin minutes
--- NOTE | 2019-10-07 08:49 | P.CRDCN ---
History of Present Illness History of present illness: HISTORY OF PRESENTING ILLNESS This is a pleasant 78-year-old female past medical history significant for hypertension, dyslipidemia and TIA. She follows in the office with Dr. Triston cotter. We have been asked to see in consultation for syncope. She states yesterday she woke up in the morning feeling her usual state of health. She did not have a large breakfast because she didn't have an appetite. She ate a small piece of toast. 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 She then walked out front to get the mail came back and sat on her chair on the fro nt porch. The next thing she knows her and son were standing over her and told her that she passed out. Prior to passing out she denies feeling dizzy, lightheaded, nauseated, diaphoretic, short of breath, chest pain or palpitations. When she woke up she noticed she felt very confused and out of it. She denies any other symptoms thereafter. She is seen and examined resting comfortably lying flat in bed in no acute distress. She denies having had this happen in the past. She had no loss of bowel or bladder control. DIAGNOSTICS EKG reveals sinus mechanism heart rate 74. Telemetry tracings reveal frequent sinus pauses up to 3 seconds in duration. Chest xray negative for an acute cardiopulmonary process. CT of the brain reveals no acute intracranial hemorrhage or midline shift, mild to moderate diffuse cerebral atrophy and chronic small vessel ischemic changes. Laboratory reviewed, WBC 12.2, hemoglobin 13.3, platelets 219, d-dimer 0.21, sodium 137, potassium 3.7, creatinine 0.52, magnesium 2.1, cardiac enzymes negative 2. Current cardiac medications include []. REVIEW OF SYSTEMS At the time of my exam: CONSTITUTIONAL: Denies fever or chills. CARDIOVASCULAR: Denies chest pain, shortness of breath, orthopnea, PND or palpitations. RESPIRATORY: Denies cough. GASTROINTESTINAL: Denies abdominal pain, diarrhea, constipation, nausea or vomiting. MUSCULOSKELETAL: Denies myalgias. NEUROLOGIC: Denies numbness, tingling or weakness. ENDOCRINE: Denies fatigue, weight change, polydipsia or polyurina. GENITOURINARY: Denies burning, hematuria or urgency with micturation. HEMATOLOGIC: Denies history of anemia or bleeding. PHYSICAL EXAMINATION Blood pressure 149/71 heart rate 86 afebrile and maintaining oxygen saturation on room air. CONSTITUTIONAL: No apparent distress. HEENT: Head is normocephalic. Pupils are equal, round. Sclerae anicteric. Mucous membranes of the mouth are moist. No JVD. No carotid bruit. CHEST EXAMINATION: Lungs are clear to auscultation. No chest wall tenderness is noted on palpation or with deep breathing. HEART EXAMINATION: Regular rate and rhythm. S1, S2 heard. No murmurs, gallops or rub. ABDOMEN: Soft, nontender. Positive bowel sounds. EXTREMITIES: 2+ peripheral pulses, no lower extremity edema and no calf tenderness. NEUROLOGIC EXAMINATION: Patient is awake, alert and oriented x3. ASSESSMENT Syncope Sinus pause Hypertension Dyslipidemia TIA PLAN Hold all beta blockers and continue telemetry monitoring. Patient may require temporary pacing if she continues to have significant pauses. Obtain 2-D echocardiogram and Doppler study to assess cardiac structure and function. Check TSH. Transfer to selective care unit. Patient may require permanent pacemaker implantation if she continues to have pauses without beta blockers. Further recommendations to follow based upon clinical course. Thank you kindly for this consultation. Nurse Practitioner note has been reviewed, I agree with a documented findings and plan of care. Patient was seen and examined. Past Medical History Past Medical History: CVA/TIA, GERD/Reflux, Hyperlipidemia, Hypertension, Memory Impairment, Osteoarthritis (OA) Additional Past Medical History / Comment(s): TIA, STATES FORGETFUL, HX VERTIGO, ALLERGIES., STATES LEFT HAND VERY PAINFUL. History of Any Multi-Drug Resistant Organisms: None Reported Past Surgical History: Back Surgery, Hysterectomy Past Anesthesia/Blood Transfusion Reactions: No Reported Reaction Past Psychological History: No Psychological Hx Reported Smoking Status: Never smoker Past Alcohol Use History: None Reported Past Drug Use History: None Reported - Past Family History Brother(s) Family Medical History: Cancer Mother History Unknown: Yes Additional Family Medical History / Comment(s): Mother Father History Unknown: Yes Additional Family Medical History / Comment(s): Father Medications and Allergies Home Medications Medication Instructions Recorded Confirmed Type Aspirin 81 mg PO DAILY 01/02/16 10/06/19 History Atorvastatin [Lipitor] 40 mg PO HS 01/02/16 10/06/19 History Calcium Carbonate [Calcium] 600 mg PO BID 01/02/16 10/06/19 History Metoprolol Tartrate [Lopressor] 25 mg PO BID 01/02/16 10/06/19 History Omeprazole 20 mg PO DAILY 01/02/16 10/06/19 History Ubidecarenone [Co Q-10] 200 mg PO DAILY 01/02/16 10/06/19 History amLODIPine [Norvasc] 5 mg PO BID 01/02/16 10/06/19 History Memantine [Namenda] 10 mg PO DAILY 10/06/19 10/06/19 History Triamcinolone 0.1% Cream [Kenalog 1 applic TOPICAL BID 10/06/19 10/06/19 History 0.1% Cream] Valsartan/Hydrochlorothiazide 1 tab PO DAILY 10/06/19 10/06/19 History [Valsartan-Hctz 80-12.5 mg Tab] Allergies Allergy/AdvReac Type Severity Reaction Status Date / Time No Known Allergies Allergy Verified 10/06/19 20:37 Physical Exam Vitals: Vital Signs Temp Pulse Pulse Resp BP BP Pulse Ox 10/07/19 04:00 98.5 F 86 17 149/71 94 L 10/07/19 00:00 97.6 F 75 17 123/60 95 10/06/19 21:11 97.4 F L 78 17 147/69 93 L 10/06/19 17:57 97.9 F 70 16 144/72 94 L Intake and Output 10/06/19 10/07/19 10/07/19 22:59 06:59 14:59 Intake Total 60 0 Balance 60 0 Intake: Oral 60 0 Other: Voiding Method Toilet # Voids 3 1 Weight 77.111 kg Results 10/06/19 18:46 10/06/19 18:46 Cardiac Enzymes 10/06/19 10/06/19 10/07/19 Range/Units 18:46 18:46 00:40 AST 24 (14-36) U/L Troponin I <0.012 <0.012 (0.000-0.034) ng/mL Coagulation 10/06/19 Range/Units 18:46 PT 10.2 (9.0-12.0) sec APTT 21.3 L (22.0-30.0) sec CBC 10/06/19 Range/Units 18:46 WBC 12.2 H (3.8-10.6) k/uL RBC 4.77 (3.80-5.40) m/uL Hgb 13.3 (11.4-16.0) gm/dL Hct 40.9 (34.0-46.0) % Plt Count 219 (150-450) k/uL Comprehensive Metabolic Panel 10/06/19 Range/Units 18:46 Sodium 137 (137-145) mmol/L Potassium 3.7 (3.5-5.1) mmol/L Chloride 105 (98-107) mmol/L Carbon Dioxide 26 (22-30) mmol/L BUN 19 H (7-17) mg/dL Creatinine 0.52 (0.52-1.04) mg/dL Glucose 102 H (74-99) mg/dL Calcium 9.0 (8.4-10.2) mg/dL AST 24 (14-36) U/L ALT 18 (4-34) U/L Alkaline Phosphatase 91 (38-126) U/L Total Protein 6.7 (6.3-8.2) g/dL Albumin 4.1 (3.5-5.0) g/dL Current Medications Generic Name Dose Route Start Last Admin Trade Name Freq PRN Reason Stop Dose Admin Acetaminophen 650 mg 10/06/19 19:42 Tylenol Tab PO Q6HR PRN Mild Pain or Fever > 100.5 Amlodipine Besylate 5 mg 10/07/19 09:00 Norvasc PO BID [facility] Aspirin 81 mg 10/07/19 09:00 Aspirin PO DAILY [facility] Atorvastatin Calcium 40 mg 10/07/19 21:00 Lipitor PO HS [facility] Heparin Sodium (Porcine) 5,000 unit 10/07/19 08:00 Heparin SQ Q8HR [facility] Hydrochlorothiazide 12.5 mg 10/07/19 09:00 Hydrodiuril PO DAILY [facility] Sodium Chloride 1,000 mls @ 50 mls/hr 10/06/19 19:45 10/06/19 19:59 Saline 0.9% IV 50 mls/hr .Q20H TENISHA Administration Memantine 10 mg 10/07/19 09:00 Namenda PO DAILY [facility] Naloxone HCl 0.2 mg 10/06/19 19:42 Narcan IV Q2M PRN Opioid Reversal Pantoprazole Sodium 40 mg 10/07/19 09:00 Protonix PO DAILY [facility] Valsartan 80 mg 10/07/19 09:00 Diovan PO DAILY TENISHA Intake and Output 10/06/19 10/07/19 10/07/19 22:59 06:59 14:59 Intake Total 60 0 Balance 60 0 Intake: Oral 60 0 Other: Voiding Method Toilet # Voids 3 1 Weight 77.111 kg 10/06/19 18:46 10/06/19 18:46
[2019-10-07] MEDS ORDERED: METOPROLOL TARTRATE 25 MG TAB PO SCH (09:00)
[2019-10-07] MEDS: ASPIRIN 81 MG PO SCH (09:16)
[2019-10-07] MEDS: MEMANTINE 10 MG TAB PO SCH (09:16)
[2019-10-07] MEDS: PANTOPRAZOLE 40 MG TABLET PO SCH (09:16)
[2019-10-07] MEDS: HYDROCHLOROTHIAZIDE 12.5 MG CAP PO SCH (09:16)
[2019-10-07] MEDS: VALSARTAN 80 MG TAB PO SCH (09:16)
[2019-10-07] MEDS: HEPARIN SODIUM,PORCINE 5,000 UNIT/ML 1 ML VIAL SQ SCH ×3 (09:16→23:55)
[2019-10-07] MEDS: amLODIPine 5 MG TAB PO SCH ×2 (09:16→21:35)
--- NOTE | 2019-10-07 13:49 | P.PN ---
Subjective Progress Note Date: 10/07/19 Principal diagnosis: Syncope Patient has not had any lightheadedness, blurry or double vision. No focal weakness or numbness. No further episodes of syncope while in the hospital. However telemetry revealed some pauses. Objective - Vital Signs Vital signs: Vital Signs Temp 97.7 F 10/07/19 11:26 Pulse 65 10/07/19 11:26 Resp 16 10/07/19 11:26 BP 160/68 10/07/19 11:26 Pulse Ox 92 L 10/07/19 11:26 Intake & Output 10/06/19 10/07/19 10/07/19 18:59 06:59 18:59 Intake Total 60 Balance 60 Weight 77.111 kg 77.111 kg Intake: Oral 60 Other: Voiding Method Toilet Toilet # Voids 1 - Exam Constitutional: No acute distress, conversant, pleasant Eyes:Anicteric sclerae, moist conjunctiva, no lid-lag, PERRLA, ENMT: Oropharynx clear, no erythema, exudates Neck: Supple, FROM, no masses, or JVD, No carotid bruits, No thyromegaly Lungs: Clear to auscultation, Clear to percussion, Normal respiratory effort, no accessory muscle use Cardiovascular: Heart regular in rate and rhythm, No murmurs, gallops, or rubs, No peripheral edema Abdominal: Soft, Nontender, no guarding, rebound or rigidity, Normoactive bowel sounds, No hepatomegaly, No splenomegaly, No palpable mass Skin: Normal temperature, tone, texture, turgor, no induration, No subcutaneous nodules, No rash, lesions, No ulcers Extremities: No digital cyanosis, No clubbing, Pedal pulses intact and symmetrical, Radial pulses intact and symmetrical, No calf tenderness Psychiatric: Alert and oriented to person, place and time, appropriate affect, intact judgement Neuro: Muscles Strength 5/5 in all 4 extremities, Sensation to light touch grossly present throughout, Cranial nerves II-XII grossly intact, no focal sensory deficits - Labs CBC & Chem 7: 10/06/19 18:46 10/06/19 18:46 Labs: Abnormal Lab Results - Last 24 Hours (Table) 10/06/19 10/06/19 10/06/19 Range/Units 18:46 18:46 18:46 WBC 12.2 H (3.8-10.6) k/uL Neutrophils # 10.7 H (1.3-7.7) k/uL Lymphocytes # 0.8 L (1.0-4.8) k/uL APTT 21.3 L (22.0-30.0) sec BUN 19 H (7-17) mg/dL Glucose 102 H (74-99) mg/dL Urine Protein (Negative) Ur Leukocyte Esterase (Negative) Hyaline Casts (0-2) /lpf Urine Mucus (None) /hpf 10/06/19 Range/Units 19:40 WBC (3.8-10.6) k/uL Neutrophils # (1.3-7.7) k/uL Lymphocytes # (1.0-4.8) k/uL APTT (22.0-30.0) sec BUN (7-17) mg/dL Glucose (74-99) mg/dL Urine Protein Trace H (Negative) Ur Leukocyte Esterase Trace H (Negative) Hyaline Casts 3 H (0-2) /lpf Urine Mucus Rare H (None) /hpf Assessment and Plan Plan: Syncope -Likely secondary to sinus pauses -Transfer patient to stepdown unit -Check TSH and echocardiogram, -Beta hue discontinued -Cardiology following, considering pacemaker Leukocytosis -No active signs of infection noted -Recheck in a.m. Chronic conditions: Hypertension, hyperlipidemia -Continue with home meds DVT prophylaxis -Heparin subq Anticipated discharge date: 1-[address]: Home
[2019-10-07] MEDS: SODIUM CHLORIDE 0.9% 1,000 ML IV SCH (21:20)
[2019-10-07] MEDS: ATORVASTATIN 40 MG TAB PO SCH (21:35)
[2019-10-08] MEDS ORDERED: ALPRAZolam 0.5 MG TAB PO STA (00:45)
[2019-10-08] MEDS ORDERED: LORazepam 2 MG/ML INJ IV STA (00:46)
[2019-10-08 07:39] LABS: Basophils # (A) 0.1 k/uL (0-0.2); Basophils % (A) 1 %; Eosinophils # (A) 0.4 k/uL (0-0.7); Eosinophils % (A) 6 %; HCT 39.4 % (34.0-46.0); HGB 12.7 gm/dL (11.4-16.0); Lymphocytes # (A) 1.2 k/uL (1.0-4.8); Lymphocytes % (A) 18 %; MCH 27.8 pg (25.0-35.0); MCHC 32.2 g/dL (31.0-37.0); MCV 86.3 fL (80.0-100.0); Monocytes # (A) 0.3 k/uL (0-1.0); Monocytes % (A) 5 %; Neutrophils # (A) 4.6 k/uL (1.3-7.7); Neutrophils % (A) 69 %; Platelet Count 196 k/uL (150-450); RBC 4.56 m/uL (3.80-5.40); RDW 13.1 % (11.5-15.5); WBC 6.7 k/uL (3.8-10.6)
[2019-10-08 07:49] LABS: African American GFR (CKD) >90 (>60 ml/min/1.73 sqM); Anion Gap 6 mmol/L; Blood Urea Nitrogen 20 mg/dL (7-17); Calcium 8.8 mg/dL (8.4-10.2); Carbon Dioxide 25 mmol/L (22-30); Chloride 108 mmol/L (98-107); Glucose 126 mg/dL (74-99); Non-African American GFR(CKD) 87 (>60 ml/min/1.73 sqM); Potassium 3.6 mmol/L (3.5-5.1); Sodium 139 mmol/L (137-145)
[2019-10-08] MEDS: HYDROCHLOROTHIAZIDE 12.5 MG CAP PO SCH (08:54)
[2019-10-08] MEDS: ASPIRIN 81 MG PO SCH (08:55)
[2019-10-08] MEDS: PANTOPRAZOLE 40 MG TABLET PO SCH (08:55)
[2019-10-08] MEDS: MEMANTINE 10 MG TAB PO SCH (08:55)
[2019-10-08] MEDS: VALSARTAN 80 MG TAB PO SCH (08:55)
[2019-10-08] MEDS: amLODIPine 5 MG TAB PO SCH ×2 (08:55→20:20)
[2019-10-08] MEDS ORDERED: SODIUM CHLORIDE 0.9% 1,000 ML IV SCH (09:15)
--- NOTE | 2019-10-08 11:22 | P.PN ---
Subjective Progress Note Date: 10/08/19 This is a pleasant 78-year-old female who follows regularly with Dr. Nicky Kennedy in the office. She has a past medical history significant for hypertension, hyperlipidemia, prior TIA. Presented to the hospital following a syncopal episode. Patient had been seen in consultation by Dr. Gomez in the observation unit. The telemetry tracings revealed frequent sinus pauses up to 3 seconds in duration. For this reason the patient was transferred to the cardiac unit, her beta hue had been discontinued. Patient has had several recurrent pauses of up to 3 seconds, this morning she had a positive approximately 20 seconds in duration. At that time the patient felt as though she may follow sleep. Patient is currently on the external pacemaker, we had a discussion with Dr. Nicky Kennedy, informing him of the patient, decision was made to proceed with implantation of a permanent pacemaker today. The risks and the benefits of the procedure were discussed with the patient and her who is at her bedside. Objective - Vital Signs Vital signs: Vital Signs Temp 97.7 F 10/08/19 04:28 Pulse 67 10/08/19 04:28 Resp 16 10/08/19 04:28 BP 140/65 10/08/19 04:28 Pulse Ox 93 L 10/08/19 04:28 Intake & Output 10/07/19 10/08/19 10/08/19 18:59 06:59 18:59 Intake Total 636 236 Balance 636 236 Intake: Oral 636 236 Other: Voiding Method Toilet Toilet # Voids 1 1 - Exam PHYSICAL EXAMINATION: GENERAL: 78-year-old female in no acute distress at the time of my examination HEENT: Head is atraumatic, normocephalic. Pupils equal, round. Sclera anicteric. Conjunctiva are clear. Mucous membranes of the mouth are moist. Neck is supple. There is no elevated jugular venous pressure. No carotid bruit is heard. HEART EXAMINATION: Heart S1, S2 normal. No murmur or gallop heard. CHEST EXAMINATION: Lungs are clear to auscultation and precussion. No chest wall tenderness is noted on palpation or with deep breathing. ABDOMEN: Soft, nontender. Bowel sounds are heard. No organomegaly noted. EXTREMITIES: 2+ peripheral pulses with no evidence of peripheral edema and no calf tenderness noted. NEUROLOGIC patient is awake, alert and oriented 3 . . - Labs CBC & Chem 7: 10/08/19 07:18 10/08/19 07:18 Labs: Abnormal Lab Results - Last 24 Hours (Table) 10/08/19 Range/Units 07:18 Chloride 108 H (98-107) mmol/L BUN 20 H (7-17) mg/dL Glucose 126 H (74-99) mg/dL Assessment and Plan Plan: Assessment and plan #1 syncope with evidence of significant sinus pauses, this morning 1 was up to 20 seconds in duration. Patient is scheduled to undergo implantation of a permanent pacemaker today at 3 PM #2 hypertension #3 hyperlipidemia #4 prior TIA #5 history of prior syncopal episodes Plan An echocardiogram with Doppler study has been performed, patient will be scheduled to undergo implantation of a permanent pacemaker today at [address] Nicky Kennedy. External pacemaker is on the patient. DNP note has been reviewed, I agree with a documented findings and plan of care. Patient was seen and examined.
--- NOTE | 2019-10-08 13:01 | ECHOF ---
Referral Reason:Syncope MEASUREMENTS -------- HEIGHT: 165.1 cm WEIGHT: 77.1 kg BP: 149/71 RVIDd: 3.2 cm (< 3.3) IVSd: 1.0 cm (0.6 - 1.1) LVIDd: 4.9 cm (3.9 - 5.3) LVPWd: 1.0 cm (0.6 - 1.1) IVSs: 1.6 cm LVIDs: 2.7 cm LVPWs: 1.5 cm LA Diam: 3.7 cm (2.7 - 3.8) LAESV Index (A-L): 33.00 ml/m Ao Diam: 3.3 cm (2.0 - 3.7) AV Cusp: 2.2 cm (1.5 - 2.6) MV EXCURSION: 15.792 mm (> 18.000) MV EF SLOPE: 120 mm/s (70 - 150) EPSS: 0.3 cm MV E Jonathon: 0.98 m/s MV DecT: 228 ms MV A Jonathon: 1.09 m/s MV E/A Ratio: 0.90 RAP: 5.00 mmHg RVSP: 27.81 mmHg FINDINGS -------- Sinus rhythm. This was a technically good study. The left ventricular size is normal. Left ventricular wall thickness is normal. Overall left vent ricular systolic function is normal with, an EF between 60 - 65 %. The right ventricle is normal in size. LA is midly dilated 29-33ml/m2. The right atrium is normal in size. Interatrial and interventricular septum intact. The aortic valve is trileaflet and appears structurally normal. There is trace mitral regurgitation. Mild tricuspid regurgitation present. Right ventricular systolic pressure is normal at < 35 mmHg. Trace/mild (physiologic) pulmonic regurgitation. The aortic root size is normal. Normal inferior vena cava with normal inspiratory collapse consistent with estimated right atrial pre ssure of 5 mmHg. There is no pericardial effusion. CONCLUSIONS -------- 1. Sinus rhythm. 2. This was a technically good study. 3. The left ventricular size is normal. 4. Left ventricular wall thickness is normal. 5. Overall left ventricular systolic function is normal with, an EF between 60 - 65 %. 6. The right ventricle is normal in size. 7. LA is midly dilated 29-33ml/m2. 8. The right atrium is normal in size. 9. Interatrial and interventricular septum intact. 10. The aortic valve is trileaflet and appears structurally normal. 11. There is trace mitral regurgitation. 12. Mild tricuspid regurgitation present. 13. Right ventricular systolic pressure is normal at < 35 mmHg. 14. Trace/mild (physiologic) pulmonic regurgitation. 15. The aortic root size is normal. 16. Normal inferior vena cava with normal inspiratory collapse consistent with estimated right atrial pressure of 5 mmHg. 17. There is no pericardial effusion. [employer] CLASSIFIER TENDER: Kae Martinez RDCS
--- NOTE | 2019-10-08 13:02 | PN ---
PROGRESS NOTE Mrs Inez Sims is a lady with history of hypertension, hyperlipidemia, and a previous TIA. She came into the hospital with symptomatic bradycardia and syncope. While in the hospital, on a monitored unit, 48 hours after stopping the metoprolol 25 mg b.i.d., she continues to have pauses of more than 4-5 seconds with symptoms. She has significant conduction system disease with sick sinus syndrome and symptomatic bradycardia. I am recommending a permanent pacemaker. I came in and saw the patient, talked to her and the patient at length. Explained to them the rationale, risks, benefits, and options. The risk of infection, bleeding, perforation of the heart, lungs as well as pneumothorax and other complications were explained. They understand all details and wished to proceed with the procedure which will be performed today. Vital signs are stable. There is no JVD. S1-S2 heard normally. Short systolic murmur noted. Lungs are clear. Abdomen and lower extremity exam is unchanged. Patient and her understand all details and wished to proceed with a permanent dual-chamber pacemaker at about 3:30 pm this afternoon. MMODL / IJN: [id number] /
[2019-10-08] MEDS ORDERED: ceFAZolin 1,000 MG in SODIUM CHLORIDE 0.9% IRRIGATIO 250 ML IRRIGATION ONE (13:30)
--- NOTE | 2019-10-08 14:28 | P.PN ---
Subjective Progress Note Date: 10/08/19 Principal diagnosis: Syncope Patient feeling okay, no shortness of breath or chest pain. No dizziness. No palpitations. No fevers or chills. No other overnight issues. Objective - Vital Signs Vital signs: Vital Signs Temp 97.9 F 10/08/19 08:00 Pulse 71 10/08/19 08:00 Resp 16 10/08/19 08:00 BP 160/70 10/08/19 08:00 Pulse Ox 92 L 10/08/19 08:00 Intake & Output 10/07/19 10/08/19 10/08/19 18:59 06:59 18:59 Intake Total 636 236 Balance 636 236 Intake: Oral 636 236 Other: Voiding Method Toilet Toilet Bedpan # Voids 1 1 2 - Exam Constitutional: No acute distress, conversant, pleasant Eyes:Anicteric sclerae, moist conjunctiva, no lid-lag, PERRLA, ENMT: Oropharynx clear, no erythema, exudates Neck: Supple, FROM, no masses, or JVD, No carotid bruits, No thyromegaly Lungs: Clear to auscultation, Clear to percussion, Normal respiratory effort, no accessory muscle use Cardiovascular: Heart regular in rate and rhythm, No murmurs, gallops, or rubs, No peripheral edema Abdominal: Soft, Nontender, no guarding, rebound or rigidity, Normoactive bowel sounds, No hepatomegaly, No splenomegaly, No palpable mass Skin: Normal temperature, tone, texture, turgor, no induration, No subcutaneous nodules, No rash, lesions, No ulcers Extremities: No digital cyanosis, No clubbing, Pedal pulses intact and symmetrical, Radial pulses intact and symmetrical, No calf tenderness Psychiatric: Alert and oriented to person, place and time, appropriate affect, intact judgement Neuro: Muscles Strength 5/5 in all 4 extremities, Sensation to light touch grossly present throughout, Cranial nerves II-XII grossly intact, no focal sensory deficits - Labs CBC & Chem 7: 10/08/19 07:18 10/08/19 07:18 Labs: Abnormal Lab Results - Last 24 Hours (Table) 10/08/19 Range/Units 07:18 Chloride 108 H (98-107) mmol/L BUN 20 H (7-17) mg/dL Glucose 126 H (74-99) mg/dL Assessment and Plan Plan: Syncope -Likely secondary to sinus pauses -Transfer patient to stepdown unit -TSH ok -Echocardiogram with normal EF, no major findings, -Beta hue held -Plans for pacemaker placement today Leukocytosis -No active signs of infection noted -Recheck in a.m. Chronic conditions: Hypertension, hyperlipidemia -Continue with home meds DVT prophylaxis -Heparin subq Anticipated discharge date: 1-[address]: Home
[2019-10-08] MEDS ORDERED: SODIUM CHLORIDE 0.9% 500 ML 500 ML IV ONE (15:24)
[2019-10-08] MEDS ORDERED: LIDOCAINE 1% INJ 10MG/ML (20 ML MDV) ONE ×3 (15:48→15:49)
[2019-10-08] MEDS: HEPARIN SODIUM,PORCINE 5,000 UNIT/ML 1 ML VIAL SQ SCH ×3 (15:54→23:37)
[2019-10-08] MEDS ORDERED: LIDOCAINE 1% INJ 10MG/ML (20 ML MDV) SQ ONE ×2 (15:59)
[2019-10-08] MEDS: MIDAZOLAM 2 MG/2 ML VIAL IV ONE ×2 (16:00→16:28)
[2019-10-08] MEDS ORDERED: fentaNYL (PF) 50 MCG/ML 2 ML AMP ONE (16:39)
[2019-10-08] MEDS ORDERED: fentaNYL (PF) 50 MCG/ML 2 ML AMP IV ONE (16:40)
[2019-10-08] MEDS ORDERED: ACETAMINOPHEN TAB 325 MG TAB PO PRN (17:53)
--- NOTE | 2019-10-08 18:37 | XR ---
EXAMINATION TYPE: XR chest 1V portable DATE OF EXAM: 10/08/2019 COMPARISON: 10/06/2019 HISTORY: Syncope TECHNIQUE: Single view FINDINGS: There is no heart failure nor confluent pneumonic infiltrate. Costophrenic angles are clear . Thoracic aorta is atheromatous. There is left axillary pacemaker. There are chest leads. IMPRESSION: No active cardiopulmonary disease. Normal heart. No change.
[2019-10-08 18:54] VITALS: RESP 18
[2019-10-08] MEDS: ACETAMINOPHEN TAB 325 MG TAB PO PRN (19:05)
--- NOTE | 2019-10-08 19:49 | PCN ---
PROCEDURE NOTE DATE OF SERVICE: 10/08/2019. PROCEDURE: 1. Transvenous temporary pacemaker from right femoral venous approach. 2. Dual-chamber permanent pacemaker from left infraclavicular approach. PERFORMED BY: Dr. Alin Kennedy. Moderate conscious sedation time was 107 minutes. The patient was administered Versed, fentanyl. Oxygen saturation, hemodynamics and EKG were monitored closely. CLINICAL INFORMATION: Mrs. Inez Sims is an 78-year-old lady with history of hypertension, hyperlipidemia and recent episodes of dizziness and lightheadedness which eventually ended with syncope. She had documented bradycardia with long pauses of more than 5 seconds. She was advised a permanent pacemaker during her hospitalization. PROCEDURE NOTE: Under local anesthesia and strict aseptic precautions, a 6-[place] introducer was placed in the right femoral vein. Under fluoroscopic guidance, a balloon-tipped floatation pacemaker catheter was positioned in the right ventricular apex and thresholds were obtained. The threshold was 0.3 mV. This pacemaker was set at a backup rate of 40, mA of 5.0. I then unscrubbed and rescrubbed and started the permanent pacemaker procedure. Under strict aseptic precautions and local anesthesia, an access point was obtained under fluoroscopic guidance into the axillary vein after performing the venogram. A micropuncture needle technique was used. This was exchanged for a regular wire. Subsequently, about 2 inches medial and parallel to the left deltopectoral groove a 3- inch incision was made and blunt dissection were carried with the help of cautery and a pacemaker pocket was made. Excellent hemostasis was achieved. I then used a micropuncture technique needle again, and medial to the previous access point another access was achieved into the axillary vein under fluoroscopic guidance. I then placed a 6-[place] introducer over the wire. Under fluoroscopic guidance, the ventricular lead was positioned in the septum. Good thresholds and R-waves were obtained. Subsequently I secured this lead with 0 silk to the underlying muscle. I then used another 6-[place] introducer for the atrial lead. Under fluoroscopic guidance, the atrial lead was positioned in the right atrial appendage. Good thresholds and sensitivities were obtained. This lead was also secured with 0 silk to the underlying muscle. The slack was checked. Both the leads were paced at 10 V for diaphragmatic pacing. The leads were checked in [place] and [place] projection. The pocket was then irrigated with antibiotic. A sponge soaked in antibiotic was kept in the pocket for about 15 minutes. The leads were then connected to the pulse generator and the pulse generator was also secured to the underlying muscle in the line of the incision. The wound was then closed in 2 layers, and prior to closing the thresholds and sensitivities were checked again. Excellent hemostasis was achieved. The patient tolerated the procedure well without complication. PACEMAKER DETAILS: Pulse generator was manufactured by [employer], model Assurity MRI 2272 pacemaker, serial number [id number]. The ventricular lead was region manager by [employer], model Tendril STS 2088 TC/52, serial number [id number]. The atrial lead is [employer] model Tendril [id number] TC/46, serial number [id number]. The atrial threshold was 1.0 V at 0.4 milliseconds. P-waves were 3.0 mV. The lead impedance was 580 ohms. Ventricular threshold was 0.625 V at 0.4 milliseconds. R-waves were 7.3 mV. Impedance was 600 ohms. The pacemaker was set in a DDD mode with a low rate of 50, high rate of 110, paced AV delay of 275 milliseconds and a sensed AV delay of 250 milliseconds. The ventricular lead was in the septum and the atrial lead was in the right atrial appendage. The patient tolerated the procedure well. The details were discussed with the patient as well as her . She will have a portable chest x-ray today, a 2-view chest x- ray tomorrow and a device check. During the incision, patient was administered antibiotic intravenously, and she will have 4 more doses of Kefzol 2 grams IV piggyback. The temporary pacemaker was taken out under fluoroscopic guidance and hemostasis secured for the right femoral venous sheath. The patient was sent to the room in a stable condition. MMODL / IJN: [id number] /
[2019-10-08] MEDS: ATORVASTATIN 40 MG TAB PO SCH (20:20)
[2019-10-08] MEDS: SODIUM CHLORIDE 0.9% 1,000 ML IV SCH ×2 (22:49→23:37)
[2019-10-09] MEDS: ACETAMINOPHEN TAB 325 MG TAB PO PRN (03:53)
--- NOTE | 2019-10-09 07:42 | XR ---
EXAMINATION TYPE: XR chest 2V DATE OF EXAM: 10/09/2019 HISTORY: Lead placement check. REFERENCE: Previous study dated 10/08/2019. FINDINGS: There is a bipolar pacemaker in place via a left subclavian approach. Approximately overlie s the right atrium and distally overlies the right ventricle. I do not see evidence of pneumothorax. The lungs are clear. Pleural space are clear. The heart is not enlarged. IMPRESSION: NO ACTIVE INTRATHORACIC DISEASE.
[2019-10-09] MEDS: SODIUM CHLORIDE 0.9% 1,000 ML IV SCH (09:59)
[2019-10-09] MEDS: HEPARIN SODIUM,PORCINE 5,000 UNIT/ML 1 ML VIAL SQ SCH ×2 (10:55→14:31)
[2019-10-09] MEDS: PANTOPRAZOLE 40 MG TABLET PO SCH (10:55)
[2019-10-09] MEDS: HYDROCHLOROTHIAZIDE 12.5 MG CAP PO SCH (10:56)
[2019-10-09] MEDS: MEMANTINE 10 MG TAB PO SCH (10:56)
[2019-10-09] MEDS: ASPIRIN 81 MG PO SCH (10:56)
[2019-10-09] MEDS: amLODIPine 5 MG TAB PO SCH (10:57)
[2019-10-09] MEDS: VALSARTAN 80 MG TAB PO SCH (10:59)
--- NOTE | 2019-10-09 12:22 | P.PN ---
Subjective Progress Note Date: 10/09/19 This is a pleasant 78-year-old female who follows regularly with Dr. Nicky Kennedy in the office. She has a past medical history significant for hypertension, hyperlipidemia, prior TIA. Presented to the hospital following a syncopal episode. Patient had been seen in consultation by Dr. Gomez in the observation unit. The telemetry tracings revealed frequent sinus pauses up to 3 seconds in duration. For this reason the patient was transferred to the cardiac unit, her beta hue had been discontinued. Patient has had several recurrent pauses of up to 3 seconds, this morning she had a positive approximately 20 seconds in duration. At that time the patient felt as though she may follow sleep. Patient is currently on the external pacemaker, we had a discussion with Dr. Nicky Kennedy, informing him of the patient, decision was made to proceed with implantation of a permanent pacemaker today. The risks and the benefits of the procedure were discussed with the patient and her who is at her bedside. 10/09/2019 Patient was seen and examined this morning, she underwent implantation of a permanent pacemaker yesterday by Dr. Nicky Kennedy. Device was interrogated and is functioning appropriately, chest x-ray did not reveal any evidence of a pneumothorax. Blood pressure 118/60, 140/70. Heart rate in the 80s. No lab data today. Objective - Vital Signs Vital signs: Vital Signs Temp 98.6 F 10/09/19 03:10 Pulse 81 10/09/19 03:10 Resp 18 10/09/19 03:10 BP 143/71 10/09/19 03:10 Pulse Ox 95 10/09/19 03:10 Intake & Output 10/08/19 10/09/19 10/09/19 18:59 06:59 18:59 Intake Total 586 120 Balance 586 120 Weight 76.7 kg Intake: IV 350 Oral 236 120 Other: Voiding Method Bedpan Bedpan # Voids 2 1 - Exam PHYSICAL EXAMINATION: GENERAL: 78-year-old female in no acute distress at the time of my examination HEENT: Head is atraumatic, normocephalic. Pupils equal, round. Sclera anicteric. Conjunctiva are clear. Mucous membranes of the mouth are moist. Neck is supple. There is no elevated jugular venous pressure. No carotid bruit is heard. HEART EXAMINATION: Heart S1, S2 normal. No murmur or gallop heard. CHEST EXAMINATION: Lungs are clear to auscultation and precussion. No chest wall tenderness is noted on palpation or with deep breathing. Site of pacemaker implantation dressing is dry and intact, patient does have mild tenderness at the site ABDOMEN: Soft, nontender. Bowel sounds are heard. No organomegaly noted. EXTREMITIES: 2+ peripheral pulses with no evidence of peripheral edema and no calf tenderness noted. NEUROLOGIC patient is awake, alert and oriented 3 . . - Labs CBC & Chem 7: 10/08/19 07:18 10/08/19 07:18 Assessment and Plan Plan: Assessment and plan #1 syncope with evidence of significant sinus pauses, this morning 1 was up to 20 seconds in duration. Status post implantation of a permanent pacemaker #2 hypertension #3 hyperlipidemia #4 prior TIA #5 history of prior syncopal episodes Plan From cardiology's perspective, patient may be discharged home today after her last dose of antibiotics. We'll make her a follow-up appointment to see Dr. MENDOZA Kennedy and the device clinic post discharge. DNP note has been reviewed, I agree with a documented findings and plan of care. Patient was seen and examined.
[2019-10-09 12:28] VITALS: TEMP 97.9
--- NOTE | 2019-10-09 14:06 | P.DS ---
Providers Date of admission: 10/07/19 13:55 Expected date of discharge: 10/09/19 Attending physician: Danna Barrios MD Consults: 10/06/19 19:43 Consult Physician Routine Consulting Provider: Jordon Juarez Consult Reason/Comments: Syncope Do you want consulting provider notified?: Yes Primary care physician: [facility] Course: 78-year-old female with a PMH of hypertension, hyperlipidemia, history of TIA, previous history of seizure, osteoarthritis, and memory impairment presented to the ED after an episode of impaired consciousness. She had an episode of sudden unresponsiveness while she was sitting on a chair. She denied having any prodromal symptoms. The episode was witnessed by her who stated that she did not have any shaking, tongue biting or urinary incontinence. The episode lasted roughly 10 minutes after which the patient was back to her baseline. The patient does not remember the episode and does not recall any preceding symptoms. She denied noticing chest discomfort, shortness of breath, palpitations, dizziness, visual disturbances, slurred speech, facial asymmetry, or headache. She also denied abdominal pain, nausea, vomiting, or diarrhea. When seen in the ER and by myself she had no active complaints. CT brain revealed mild to moderate diffuse cerebral atrophy and chronic small vessel ischemic changes with no acute changes noted. Chest x-ray was unremarkable with EKG showing normal sinus rhythm at [address]pm with no acute ST/T-wave changes. Laboratory evaluation revealed a WBC count of 12.2, hemoglobin 13.3, platelets 219, sodium 137, potassium 3.7, BUN 19, creatinine 0.52, troponin less than 0.012, and UA unremarkable. Upon admission to observation, telemetry revealed very prolonged sinus pauses, up to 20 seconds in duration. At home she chronically takes beta hue. Despite holding it he continues to have the positive. Troponin was cycled to remain negative. TSH came back normal. Echocardiogram revealed normal LV function, no major valvular abnormalities. She was transferred to progressive floor, was seen by cardiology who decided to place a pacemaker. She did have one put in, tolerated the procedure well. Today she was cleared by cardiology for discharge. She'll be discharged home in stable condition. Discharge diagnoses Syncope secondary to sinus pauses status post pacemaker Her other chronic conditions as noted per H&P Time for discharge 35 minutes. Patient Condition at Discharge: Stable Plan - Discharge Summary Discharge Rx Participant: No New Discharge Prescriptions: Continue amLODIPine [Norvasc] 5 mg PO BID Metoprolol Tartrate [Lopressor] 25 mg PO BID Atorvastatin [Lipitor] 40 mg PO HS Aspirin 81 mg PO DAILY Omeprazole 20 mg PO DAILY Ubidecarenone [Co Q-10] 200 mg PO DAILY Calcium Carbonate [Calcium] 600 mg PO BID Memantine [Namenda] 10 mg PO DAILY Valsartan/Hydrochlorothiazide [Valsartan-Hctz 80-12.5 mg Tab] 1 tab PO DAILY Triamcinolone 0.1% Cream [Kenalog 0.1% Cream] 1 applic TOPICAL BID Discharge Medication List Aspirin 81 mg PO DAILY 01/02/16 [History] Atorvastatin [Lipitor] 40 mg PO HS 01/02/16 [History] Calcium Carbonate [Calcium] 600 mg PO BID 01/02/16 [History] Metoprolol Tartrate [Lopressor] 25 mg PO BID 01/02/16 [History] Omeprazole 20 mg PO DAILY 01/02/16 [History] Ubidecarenone [Co Q-10] 200 mg PO DAILY 01/02/16 [History] amLODIPine [Norvasc] 5 mg PO BID 01/02/16 [History] Memantine [Namenda] 10 mg PO DAILY 10/06/19 [History] Triamcinolone 0.1% Cream [Kenalog 0.1% Cream] 1 applic TOPICAL BID 10/06/19 [History] Valsartan/Hydrochlorothiazide [Valsartan-Hctz 80-12.5 mg Tab] 1 tab PO DAILY 10/06/19 [History] Follow up Appointment(s)/Referral(s): Kateryna Kennedy MD [STAFF PHYSICIAN] - 10/14/19 9:00 am (FRIDAY ) Sondra Quintero MD [Primary Care Provider] - 1-2 days (Offices are closed. Please call Friday for a follow up appointment.) Patient Instructions/Handouts: Pacemaker (DC)
[2019-10-09 14:43] VITALS: BP 158/66; PULSE 68
[2019-10-11] MEDS ORDERED: ceFAZolin 1,000 MG in SODIUM CHLORIDE 0.9% IRRIGATIO 250 ML IRRIGATION ONE (09:06)
== END 2019-10-09 15:11 | disposition home or self-care (01) | DRG 243 ==
LOC: EC 17:46 → 1SOBS 19:44 → 3SCARD 10-07 12:14 → OBSVTOIN 10-07 13:55
PROVIDERS: ADMIT Internal Medicine; ATTEND Internal Medicine
PROC: 5A1223Z Performance of Cardiac Pacing, Continuous (ICD-10-PCS; principal; 2019-10-08 12:45)
PROC: 0JH606Z Insertion of Pacemaker, Dual Chamber into Chest Subcutaneous Tissue and Fascia, Open Approach (ICD-10-PCS; principal; 2019-10-08 12:45)
PROC: 02H63JZ Insertion of Pacemaker Lead into Right Atrium, Percutaneous Approach (ICD-10-PCS; principal; 2019-10-08 12:45)
PROC: 02HK3JZ Insertion of Pacemaker Lead into Right Ventricle, Percutaneous Approach (ICD-10-PCS; principal; 2019-10-08 12:45)
DX: I49.5 Sick sinus syndrome (principal); G45.9 Transient cerebral ischemic attack, unspecified; I45.9 Conduction disorder, unspecified; D72.829 Elevated white blood cell count, unspecified; E78.5 Hyperlipidemia, unspecified; I10 Essential (primary) hypertension; Z79.82 Long term (current) use of aspirin; Z79.899 Other long term (current) drug therapy; Z86.73 Personal history of transient ischemic attack (TIA), and cerebral infarction without residual deficits; Z90.710 Acquired absence of both cervix and uterus; Z66 Do not resuscitate; Z11.59 Encounter for screening for other viral diseases; Z80.9 Family history of malignant neoplasm, unspecified
CPT/HCPCS: 33208; 36415; 70450; 71045; 71046; 80048; 80053; 81001; 83735; 84443; 84484; 85025; 85379; 85610; 85730; 93005; 93306; 96360; 96361; 99285

== ENCOUNTER → 2021-03-30 | Outpatient (CLI) | payer MEDICARE ==
--- NOTE | 2021-03-30 12:22 | US ---
EXAMINATION TYPE: US abdomen limited DATE OF EXAM: 03/30/2021 COMPARISON: US abdomen Limited April 26, 2019 CLINICAL HISTORY: R10.13 Epigastric pain. Pt states epigastric pain EXAM MEASUREMENTS: Liver Length: 11.2 cm Gallbladder Wall: 0.2 cm CBD: 0.4 cm Right Kidney: 12.3 x 4.9 x 4.6 cm Pancreas: wnl, tail obscured by overlying bowel gas Liver: Cyst with septation= 2.1 x 1.4 x 2.5 cm Gallbladder: wnl Evidence for sonographic Eddy's sign: No CBD: wnl Right Kidney: No evidence of hydro/ isoechoic lesion as visualized on prior= 0.7 x 0.7 x 0.7 cm Stable thin-walled cyst with central septation or 2 adjacent thin-walled cysts left hepatic lobe. No gallstones identified. No right-sided hydronephrosis. Technologist evans subcentimeter exophytic roun d lesion too small to further characterize from the right kidney unchanged in appearance from prior s tudy IMPRESSION: No new or acute findings evident.
== END | disposition home or self-care (01) ==
LOC: RADUSWWP 11:50
PROVIDERS: ATTEND Family Medicine
DX: K76.89 Other specified diseases of liver (principal)
CPT/HCPCS: 76705

== ENCOUNTER 2022-01-18 11:32 | Day surgery (SDC) | payer MEDICARE ==
[~2022-01-18 11:32] MED LIST changes: +LIDOCAINE 1% (10MG/ML) FOR IV START INTRADERMA PRN; -LIDOCAINE 1% 20 ML VIAL (10MG/ML) FOR IV START INTRADERMA PRN; -MORPHINE SULFATE 4MG/4ML SYRG IV PRN; -ONDANSETRON 4 MG/2 ML VIAL IVP ONE; -ceFAZolin IN SWFI 2 GM/20 ML SYRINGE IVP ONE
[2022-01-18 13:33] VITALS: TEMP 97
[2022-01-18] MEDS ORDERED: PROPOFOL 10 MG/ML 20 ML VIAL IV ONE (14:24)
[2022-01-18] MEDS ORDERED: LIDOCAINE 2% INJ 20 MG/ML (2 ML VIAL) ONE (14:24)
--- NOTE | 2022-01-18 14:35 | P.PCN ---
Date of Procedure: 01/18/22 Procedure(s) Performed: BRIEF HISTORY: Patient is a 78-year-old, pleasant, white female scheduled for an upper endoscopy as a part of evaluation of epigastric pain and long-standing history of GERD. Currently and omeprazole 20 mg daily.. PROCEDURE PERFORMED: Esophagogastroduodenoscopy. PREOPERATIVE DIAGNOSIS: Long standing history of GERD and occasional epigastric pain. IV sedation per anesthesia. PROCEDURE: After informed consent was obtained, the patient was brought into the endoscopy unit. IV sedation was administered by Anesthesia under continuous monitoring. Initially the Olympus GIF-140 video endoscope was inserted into the mouth. Esophagus intubated without any difficulty. It was gradually advanced into the stomach and duodenum and carefully examined. The bulb and the second part of the duodenum appeared normal. The scope at this time was withdrawn to the stomach, adequately insufflated with air, and upon careful examination, mucosa of the antrum, body, cardia and the fundus appeared normal. The scope was then withdrawn into the esophagus. Small hiatal hernia noted. The GE junction was located at 39 cm from the incisors. The esophagus appeared normal. There were no erosions or ulcerations seen and the patient tolerated the procedure well. IMPRESSION: 1. Normal-appearing esophagus with no evidence of esophagitis, Brown's esophagus or esophageal stricture. 2. Small hiatal hernia. RECOMMENDATIONS: The findings of this examination were discussed with the patient as well as a family. She was advised to increase omeprazole to 20 mg twice daily for 8 weeks and follow antireflux measures.
[2022-01-18 15:23] VITALS: BP 142/78; PULSE 70; RESP 16
== END 2022-01-18 15:28 | disposition home or self-care (01) ==
LOC: ORWHC2ENDO 11:32
PROVIDERS: ATTEND Internal Medicine Gastroenterology
DX: K44.9 Diaphragmatic hernia without obstruction or gangrene (principal); K21.9 Gastro-esophageal reflux disease without esophagitis; I10 Essential (primary) hypertension; E78.5 Hyperlipidemia, unspecified; R42 Dizziness and giddiness; M19.90 Unspecified osteoarthritis, unspecified site; R41.3 Other amnesia; Z79.82 Long term (current) use of aspirin; Z79.1 Long term (current) use of non-steroidal anti-inflammatories (NSAID); Z79.899 Other long term (current) drug therapy
CPT/HCPCS: 43235; J2704; J2001

== ENCOUNTER 2023-04-30 07:26 | Emergency (ER) | payer MEDICARE ==
[2023-04-30 07:57] VITALS: RESP 18; TEMP 98.1
--- NOTE | 2023-04-30 08:00 | ED ---
Abdominal Pain HPI - General Source: patient, family, RN notes reviewed Mode of arrival: ambulatory Limitations: no limitations <Bradley Costa - Last Filed: 04/30/23 07:59> <Niki Cruz - Last Filed: 04/30/23 13:22> - General Chief Complaint: Abdominal Pain Stated Complaint: lower abd pain Time Seen by Provider: 04/30/23 08:00 - History of Present Illness Initial Comments: 82-year-old female presents emergency Department chief complaint of right-sided abdominal pain. Symptoms are getting worse last 3 days. Patient was initially taken some Aleve for relief of symptoms but has not helped today. Family member states that they felt a lump in the right side leg and dissipated but the pain is not alleviated. Patient denies any nausea vomiting no change in bowel habits no dysuria. (Bradley Costa) The patient is a 82-year-old female with history of hypertension, hyperlipidemia, Alzheimer's who presents emergency room accompanied by her for right lower groin and abdominal pain. Patient states it's been intermittent over the last 3 days. The pain worsens morning. Her gave Aleve which seemed to improve the pain at this time. He has noticed that she had a lump in the groin earlier however it is since improved. No known hernia in the past. Patient has not been doing any excessive lifting or heavy lifting or straining that she is aware of. She has had decreased urine output through the night. She denies any recent dysuria, nausea, vomiting, fevers. She denies any constipation. (Niki Cruz) - Related Data Home Medications Medication Instructions Recorded Confirmed Atorvastatin [Lipitor] 40 mg PO HS 01/02/16 04/30/23 Calcium Carbonate [Calcium] 600 mg PO DAILY 01/02/16 04/30/23 Metoprolol Tartrate [Lopressor] 25 mg PO BID 01/02/16 04/30/23 Omeprazole 20 mg PO DAILY 01/02/16 04/30/23 Ubidecarenone [Co Q-10] 100 mg PO DAILY 01/02/16 04/30/23 amLODIPine [Norvasc] 5 mg PO BID 01/02/16 04/30/23 Memantine [Namenda] 10 mg PO BID 10/06/19 04/30/23 Valsartan/Hydrochlorothiazide 1 tab PO HS 10/06/19 04/30/23 [Valsartan-Hctz 80-12.5 mg Tab] Apixaban [Eliquis] 5 mg PO BID 01/18/22 04/30/23 Magnesium 200 mg PO HS 01/18/22 04/30/23 Calcium Carbonate/Vitamin D3 1 cap PO HS 04/30/23 04/30/23 [Calcium 600 mg-D3 10 Mcg (400 Iu)] Krill/[place]-3/Dha/Epa/Lipids 1 cap PO W/SUPPER 04/30/23 04/30/23 [Krill Oil 350 mg Softgel] Multivit-Min/Iron/Folic/Lutein 1 tab PO DAILY 04/30/23 04/30/23 [Centrum Silver Women Tablet] Prevagen 1 tab PO HS 04/30/23 04/30/23 metFORMIN HCL ER [Glucophage XR] 500 mg PO W/SUPPER 04/30/23 04/30/23 Previous Rx's Medication Instructions Recorded Ibuprofen [Motrin] 600 mg PO Q8HR PRN #20 tab 04/30/23 Allergies Allergy/AdvReac Type Severity Reaction Status Date / Time No Known Allergies Allergy Verified 04/30/23 12:40 Review of Systems ROS Other: All systems not noted in ROS Statement are negative. <Bradley Costa - Last Filed: 04/30/23 07:59> ROS Other: All systems not noted in ROS Statement are negative. <Niki Cruz - Last Filed: 04/30/23 13:22> ROS Statement: Those systems with pertinent positive or pertinent negative responses have been documented in the HPI. Past Medical History Past Medical History: CVA/TIA, Dementia, GERD/Reflux, Hyperlipidemia, Hypertension, Memory Impairment, Osteoarthritis (OA) Additional Past Medical History / Comment(s): TIA, STATES FORGETFUL, HX VERTIGO, ALLERGIES., STATES LEFT HAND VERY PAINFUL. On Eliquis but patient and family unsure why History of Any Multi-Drug Resistant Organisms: None Reported Past Surgical History: Back Surgery, Hysterectomy, Pacemaker Past Anesthesia/Blood Transfusion Reactions: No Reported Reaction Type of Cardiac Device: Permanent Pacemaker Device Placement Date:: 2019 Past Psychological History: No Psychological Hx Reported Smoking Status: Never smoker Past Alcohol Use History: None Reported Past Drug Use History: None Reported - Past Family History Brother(s) Family Medical History: Cancer Mother History Unknown: Yes Additional Family Medical History / Comment(s): Mother Father History Unknown: Yes Additional Family Medical History / Comment(s): Father <Bradley Costa - Last Filed: 04/30/23 07:59> General Exam <Bradley Costa - Last Filed: 04/30/23 07:59> Limitations: no limitations General appearance: alert Head exam: Present: atraumatic Eye exam: Present: normal appearance, PERRL Pupils: Present: normal accommodation ENT exam: Present: normal exam Neck exam: Present: full ROM Respiratory exam: Present: normal lung sounds bilaterally Cardiovascular Exam: Present: regular rate GI/Abdominal exam: Present: soft, tenderness (mild right inguinal pain with palpation, no obvious mass, no erythema or warmth. ), other (no peritoneal signs). Absent: guarding, rebound, rigid Extremities exam: Present: full ROM Back exam: Present: full ROM Neurological exam: Present: alert, other (oriented x 2, history dementia) Psychiatric exam: Present: normal affect, normal mood Skin exam: Present: warm, dry <Niki Cruz - Last Filed: 04/30/23 13:22> - General Exam Comments Initial Comments: Visual Physical Exam Vital signs reviewed General: Well-appearing, nontoxic, no acute distress. Head: Normocephalic, atraumatic Eyes: PERRLA, EOMI ENT: Airway patent Chest: Nonlabored breathing Skin: No visual rash, normal skin tone Neuro: Alert and oriented 3 Musculoskeletal: No gross abnormalities (NiurkaBradley serna) Course <Niki Cruz - Last Filed: 04/30/23 13:22> Vital Signs 04/30/23 07:39 Temperature 98.1 F Pulse Rate 83 Respiratory 18 Rate Blood Pressure 142/76 O2 Sat by Pulse 95 Oximetry - Reevaluation(s) Reevaluation #1: 04/30/23 13:03 Patient is well-appearing and emergency room. She is asymptomatic at this time and is eager to leave. She has been ambulating without any discomfort or in the groin area. She was able to successfully use the bathroom without any pain, return of the lung or difficulty urinating. I did discuss signs return to the emergency room including not limited to any worsening pain, not retracting hernia, discoloration or vomiting. I discussed finding up with the PCP in general surgery for reevaluation of the suspected hernia. Discussed pain management at home as needed as well as the patient and at bedside. They understand and agree to treatment discharge plan. Patient's symptoms are And disposition were discussed with attending ED physician Dr. Everardo garcia. (Niki Cruz) Medical Decision Making <Bradley Costa - Last Filed: 04/30/23 07:59> - Lab Data Result diagrams: 04/30/23 08:02 04/30/23 09:08 <Niki Cruz - Last Filed: 04/30/23 13:22> - Medical Decision Making I completed the quick note portion of this chart signed Bradley Costa PA-C (Bradley Costa) Was pt. sent in by a medical professional or institution ([facility], [facility], urgent care, hospital, or residential...) When possible be specific @ -[No] Did you speak to anyone other than the patient for history (EMS, parent, family, police, friend...)? What history was obtained from this source @ - at bedside Did you review nursing and triage notes (agree or disagree)? Why? @ -[I reviewed and agree with nursing and triage notes] Were old charts reviewed (outside hosp., previous admission, EMS record, old EKG, old radiological studies, urgent care reports/EKG's, residential records)? Report findings @ -While charts including medications Differential Diagnosis (chest pain, altered mental status, abdominal pain women, abdominal pain men, vaginal bleeding, weakness, fever, dyspnea, syncope, headache, dizziness, GI bleed, back pain, seizure, CVA, palpatations, mental health, musculoskeletal)? @ -Inguinal hernia, appendicitis, UTI, muscle strain, constipation EKG interpreted by me (3pts min.). @ -[As above] X-rays interpreted by me (1pt min.). @ -[None done] CT interpreted by me (1pt min.). @ -Computed tomography scan is negative for any bowel obstruction, palpation, appendicitis or obvious hernia at this time. U/S interpreted by me (1pt. min.). @ -[None done] What testing was considered but not performed or refused? (CT, X-rays, U/S, labs)? Why? @ -[None] What meds were considered but not given or refused? Why? @ -[None] Did you discuss the management of the patient with other professionals (professionals i.e. , PA, [facility], lab, RT, psych nurse, rn social work, horse racing manager, teacher, sales and service officer, patient case coordinator)? Give summary @ -[No] Was smoking cessation discussed for >3mins.? @ -[No] Was critical care preformed (if so, how long)? @ -[No] Were there social determinants of health that impacted care today? How? (Homelessness, low income, unemployed, alcoholism, drug addiction, transportation, low edu. Level, literacy, decrease access to med. care, longterm, rehab)? @ -[No] Was there de-escalation of care discussed even if they declined (Discuss DNR or withdrawal of care, Hospice)? DNR status @ -[No] What co-morbidities impacted this encounter? (DM, HTN, Smoking, COPD, CAD, Cancer, CVA, ARF, Chemo, Hep., AIDS, mental health diagnosis, sleep apnea, morbid obesity)? @ -Hypertension, dementia Was patient admitted / discharged? Hospital course, mention meds given and route, prescriptions, significant lab abnormalities, going to OR and other pertinent info. @ -Patient has no pain at this time. She has been up ambulating and using the restroom without any pain, return of the lump, or other symptoms. She is eager to leave. I discussed lab and imaging results with the patient and at bedside. I discussed signs return to the emergency room. I discussed follow-up with general surgery and PCP for reevaluation and continued symptoms. They understand and agree to treatment discharge plan. Her symptoms workup and disposition were discussed with attending ED physician Dr. Mcgee today. Undiagnosed new problem with uncertain prognosis? @ -[No] Drug Therapy requiring intensive monitoring for toxicity (Heparin, Nitro, Insulin, Cardizem)? @ -[No] Were any procedures done? @ -[No] Diagnosis/symptom? @ -Abdominal pain, suspected right inguinal hernia Acute, or Chronic, or Acute on Chronic? @ -Acute Uncomplicated (without systemic symptoms) or Complicated (systemic symptoms)? @ -[default] Side effects of treatment? @ -[No] Exacerbation, Progression, or Severe Exacerbation? @ -[No] Poses a threat to life or bodily function? How? (Chest pain, [place], [place], pneumonia, PE, COPD, DKA, ARF, appy, cholecystitis, CVA, Diverticulitis, Homicidal, Suicidal, threat to staff... and all critical care pts) @ -[No] (Niki Cruz) - Lab Data Lab Results 04/30/23 04/30/23 04/30/23 Range/Units 08:02 08:02 08:02 WBC 7.9 (3.8-10.6) k/uL RBC 5.16 (3.80-5.40) m/uL Hgb 15.0 (11.4-16.0) gm/dL Hct 44.7 (34.0-46.0) % MCV 86.6 (80.0-100.0) fL MCH 29.0 (25.0-35.0) pg MCHC 33.5 (31.0-37.0) g/dL RDW 13.2 (11.5-15.5) % Plt Count 228 (150-450) k/uL MPV 8.4 Neutrophils % 78 % Lymphocytes % 14 % Monocytes % 5 % Eosinophils % 2 % Basophils % 1 % Neutrophils # 6.2 (1.3-7.7) k/uL Lymphocytes # 1.1 (1.0-4.8) k/uL Monocytes # 0.4 (0-1.0) k/uL Eosinophils # 0.1 (0-0.7) k/uL Basophils # 0.0 (0-0.2) k/uL Sodium (137-145) mmol/L Potassium (3.5-5.1) mmol/L Chloride (98-107) mmol/L Carbon Dioxide (22-30) mmol/L Anion Gap mmol/L BUN (7-17) mg/dL Creatinine (0.52-1.04) mg/dL Est GFR (CKD-EPI)AfAm (>60 ml/min/1.73 sqM) Est GFR (CKD-EPI)NonAf (>60 ml/min/1.73 sqM) Glucose (74-99) mg/dL Plasma Lactic Acid Jesu 1.0 (0.7-2.0) mmol/L Calcium (8.4-10.2) mg/dL Total Bilirubin (0.2-1.3) mg/dL AST (14-36) U/L ALT (4-34) U/L Alkaline Phosphatase (38-126) U/L Total Protein (6.3-8.2) g/dL Albumin (3.5-5.0) g/dL Lipase (23-300) U/L Urine Color Light Yellow Urine Appearance Clear (Clear) Urine pH 7.0 (5.0-8.0) Ur Specific [place] >1.050 H (1.001-1.035) Urine Protein Trace H (Negative) Urine Glucose (UA) Negative (Negative) Urine Ketones Negative (Negative) Urine Blood Negative (Negative) Urine Nitrite Negative (Negative) Urine Bilirubin Negative (Negative) Urine Urobilinogen <2.0 (<2.0) mg/dL Ur Leukocyte Esterase Trace H (Negative) Urine RBC 1 (0-5) /hpf Urine WBC 4 (0-5) /hpf Ur Squamous Epith Cells 4 (0-4) /hpf Urine Mucus Rare H (None) /hpf 04/30/23 Range/Units 09:08 WBC (3.8-10.6) k/uL RBC (3.80-5.40) m/uL Hgb (11.4-16.0) gm/dL Hct (34.0-46.0) % MCV (80.0-100.0) fL MCH (25.0-35.0) pg MCHC (31.0-37.0) g/dL RDW (11.5-15.5) % Plt Count (150-450) k/uL MPV Neutrophils % % Lymphocytes % % Monocytes % % Eosinophils % % Basophils % % Neutrophils # (1.3-7.7) k/uL Lymphocytes # (1.0-4.8) k/uL Monocytes # (0-1.0) k/uL Eosinophils # (0-0.7) k/uL Basophils # (0-0.2) k/uL Sodium 141 (137-145) mmol/L Potassium 4.0 (3.5-5.1) mmol/L Chloride 109 H (98-107) mmol/L Carbon Dioxide 23 (22-30) mmol/L Anion Gap 9 mmol/L BUN 22 H (7-17) mg/dL Creatinine 0.66 (0.52-1.04) mg/dL Est GFR (CKD-EPI)AfAm >90 (>60 ml/min/1.73 sqM) Est GFR (CKD-EPI)NonAf 81 (>60 ml/min/1.73 sqM) Glucose 116 H (74-99) mg/dL Plasma Lactic Acid Jesu (0.7-2.0) mmol/L Calcium 9.3 (8.4-10.2) mg/dL Total Bilirubin 0.6 (0.2-1.3) mg/dL AST 24 (14-36) U/L ALT 25 (4-34) U/L Alkaline Phosphatase 103 (38-126) U/L Total Protein 7.2 (6.3-8.2) g/dL Albumin 4.3 (3.5-5.0) g/dL Lipase 94 (23-300) U/L Urine Color Urine Appearance (Clear) Urine pH (5.0-8.0) Ur Specific [place] (1.001-1.035) Urine Protein (Negative) Urine Glucose (UA) (Negative) Urine Ketones (Negative) Urine Blood (Negative) Urine Nitrite (Negative) Urine Bilirubin (Negative) Urine Urobilinogen (<2.0) mg/dL Ur Leukocyte Esterase (Negative) Urine RBC (0-5) /hpf Urine WBC (0-5) /hpf Ur Squamous Epith Cells (0-4) /hpf Urine Mucus (None) /hpf Disposition <Bradley Costa - Last Filed: 04/30/23 07:59> Is patient prescribed a controlled substance at d/c from ED?: No If prescribed controlled substance>3 days was MAPS reviewed?: No Time of Disposition: 13:05 <Niki Cruz - Last Filed: 04/30/23 13:22> Clinical Impression: Abdominal pain, Inguinal hernia of right side without obstruction or gangrene Disposition: HOME SELF-CARE Condition: Good Instructions (If sedation given, give patient instructions): Inguinal Hernia (ED), Abdominal Pain (ED) Additional Instructions: Return for any uncontrolled pain, inability to retract "the lump", discoloration in the area, uncontrolled vomiting or new concerning symptoms. Prescriptions: Ibuprofen [Motrin] 600 mg PO Q8HR PRN #20 tab PRN Reason: Pain Referrals: Sondra Quintero MD [Primary Care Provider] - 1-2 days Frederick Cruz MD [Medical Doctor] - 1-2 days
[2023-04-30 08:54] LABS: Basophils % (A) 1 %; Eosinophils # (A) 0.1 k/uL (0-0.7); Eosinophils % (A) 2 %; HCT 44.7 % (34.0-46.0); Lymphocytes # (A) 1.1 k/uL (1.0-4.8); Lymphocytes % (A) 14 %; MCHC 33.5 g/dL (31.0-37.0); MCV 86.6 fL (80.0-100.0); Mean Platelet Volume 8.4; Monocytes # (A) 0.4 k/uL (0-1.0); Monocytes % (A) 5 %; Neutrophils # (A) 6.2 k/uL (1.3-7.7); Neutrophils % (A) 78 %; Platelet Count 228 k/uL (150-450); RBC 5.16 m/uL (3.80-5.40); RDW 13.2 % (11.5-15.5); WBC 7.9 k/uL (3.8-10.6)
[2023-04-30 10:15] LABS: African American GFR (CKD) >90 (>60 ml/min/1.73 sqM); Albumin 4.3 g/dL (3.5-5.0); Calcium 9.3 mg/dL (8.4-10.2); Carbon Dioxide 23 mmol/L (22-30); Chloride 109 mmol/L (98-107); Non-African American GFR(CKD) 81 (>60 ml/min/1.73 sqM); Total Bilirubin 0.6 mg/dL (0.2-1.3); Total Protein 7.2 g/dL (6.3-8.2)
[2023-04-30 10:18] LABS: AST 24 U/L (14-36); Alkaline Phosphatase 103 U/L (38-126); Anion Gap 9 mmol/L; Blood Urea Nitrogen 22 mg/dL (7-17); Glucose 116 mg/dL (74-99); Sodium 141 mmol/L (137-145)
--- NOTE | 2023-04-30 11:42 | CT ---
EXAMINATION TYPE: CT abdomen pelvis w con CT DLP: 1098.8 mGycm, Automated exposure control for dose reduction was used. DATE OF EXAM: 04/30/2023 11:32 AM COMPARISON: None. CLINICAL INDICATION:Female, 82 years old with history of abdominal pain; Lower abdominal pain, worse with pressure or movement, possible lump TECHNIQUE: Axial CT abdomen pelvis w con;Sagittal and coronal reformats were created on a separate w orkstation. Contrast used:100 mL of Isovue 300 with IV Contrast, (none if empty) Oral contrast used: without Oral Contrast (none if empty) FINDINGS: LOWER CHEST: Atelectasis in the lung bases along the periphery. The heart is mildly enlarged for size . Cardiac conduction mean in the right ventricle and right atrium. Severe coronary artery calcificati ons. ABDOMEN LIVER: Left hepatic lobe cyst. GALLBLADDER AND BILE DUCTS: Unremarkable. PANCREAS: Unremarkable. SPLEEN: Unremarkable. ADRENAL GLANDS: Unremarkable. KIDNEYS AND URETERS: Multiple renal cysts bilaterally the largest measuring up to 7.0 cm on the left and 1.5 mm in the right. No evidence of hydronephrosis or renal calculus. The ureters are unremarkabl e. PELVIS BLADDER: Unremarkable REPRODUCTIVE: Uterus is not visualized ABDOMEN & PELVIS STOMACH AND BOWEL: No evidence of bowel obstruction. Scattered colonic diverticula. The appendix is n ot definitively visualized. No obstructive uropathy. Moderate amount stool in the cecum and ascending colon. PERITONEUM/RETROPERITONEUM: No evidence of pneumoperitoneum or free fluid. VASCULATURE: No evidence of aortic aneurysm. MUSCULOSKELETAL: No acute osseous abnormalities LYMPH NODES: No gross evidence for lymphadenopathy. SOFT TISSUE/ABDOMINAL WALL: No subcutaneous lump visualized. IMPRESSION: 1. No evidence for acute lower abdominal process. No lump was visualized. No palpable marker was kristi roberto. 2. Colonic diverticulosis. 3. Bilateral simple appearing renal cysts. No follow-up recommended.
[2023-04-30 11:47] LABS: ALT 25 U/L (4-34); Lipase 94 U/L (23-300)
[2023-04-30 12:19] LABS: Appearance,Urine Clear (Clear); Bilirubin,Urine Negative (Negative); Blood,Urine Negative (Negative); Color,Urine Light Yellow; Glucose,Urine (UA) Negative (Negative); Ketones,Urine Negative (Negative); Leukocyte Esterase,Urine Trace (Negative); Mucus,Urine Rare /hpf; Nitrite,Urine Negative (Negative); Protein,Urine Trace (Negative); RBC,Urine 1 /hpf (0-5); Squamous Epithelial Cell,Urine 4 /hpf (0-4); Urobilinogen,Urine <2.0 mg/dL (<2.0); WBC,Urine 4 /hpf (0-5)
[2023-04-30 12:20] LABS: Specific Gravity,Urine >1.050 (1.001-1.035)
[2023-04-30 13:23] VITALS: BP 148/89; PULSE 86
== END 2023-04-30 13:22 | disposition home or self-care (01) ==
LOC: EC 07:26
DX: K40.90 Unilateral inguinal hernia, without obstruction or gangrene, not specified as recurrent (principal); K57.30 Diverticulosis of large intestine without perforation or abscess without bleeding; K21.9 Gastro-esophageal reflux disease without esophagitis; E78.5 Hyperlipidemia, unspecified; I10 Essential (primary) hypertension; Z79.899 Other long term (current) drug therapy; Z86.73 Personal history of transient ischemic attack (TIA), and cerebral infarction without residual deficits; Z79.01 Long term (current) use of anticoagulants
CPT/HCPCS: 36415; 80053; 83605; 83690; 85025; 81001; 74177; 99284; Q9967

== ENCOUNTER 2023-09-30 08:39 | Emergency (ER) | payer MEDICARE ==
[2023-09-30] MEDS: SODIUM CHLORIDE 0.9% 500 ML 500 ML IV STA (09:25)
[2023-09-30 09:47] LABS: Basophils # (A) 0.1 k/uL (0-0.2); Basophils % (A) 1 %; Eosinophils # (A) 0.1 k/uL (0-0.7); Eosinophils % (A) 2 %; HCT 40.6 % (34.0-46.0); HGB 13.5 gm/dL (11.4-16.0); Lymphocytes # (A) 0.7 k/uL (1.0-4.8); Lymphocytes % (A) 8 %; MCH 29.4 pg (25.0-35.0); MCHC 33.1 g/dL (31.0-37.0); MCV 88.8 fL (80.0-100.0); Mean Platelet Volume 8.4; Monocytes # (A) 0.5 k/uL (0-1.0); Monocytes % (A) 5 %; Neutrophils # (A) 7.4 k/uL (1.3-7.7); Neutrophils % (A) 84 %; Platelet Count 225 k/uL (150-450); RBC 4.58 m/uL (3.80-5.40); RDW 13.4 % (11.5-15.5); WBC 8.8 k/uL (3.8-10.6)
[2023-09-30 09:50] LABS: INR 1.1 (<1.2); Partial Thromboplastin Time 24.3 sec (22.0-30.0); Prothrombin Time 11.5 sec (10.0-12.5)
--- NOTE | 2023-09-30 10:05 | XR ---
EXAMINATION TYPE: XR chest 2V DATE OF EXAM: 09/30/2023 9:59 AM CLINICAL INDICATION:Female, 82 years old with history of syncope; COMPARISON: Chest radiographs from 10/09/2019 TECHNIQUE: XR chest 2V Frontal and lateral views of the chest. FINDINGS: Lungs/Pleura: There is no evidence of pleural effusion, focal consolidation, or pneumothorax. Pulmonary vascularity: Unremarkable. Heart/mediastinum: Cardiomediastinal silhouette is unremarkable. Two lead cardiac conduction device o verlying the left hemithorax with lead tips projecting over the right ventricle and right atrium. Musculoskeletal: No acute osseous pathology. IMPRESSION: No acute cardiopulmonary disease/process.
[2023-09-30 10:09] LABS: ALT 17 U/L (4-34); AST 22 U/L (14-36); African American GFR (CKD) 75 (>60 ml/min/1.73 sqM); Albumin 3.8 g/dL (3.5-5.0); Alkaline Phosphatase 86 U/L (38-126); Anion Gap 6 mmol/L; Blood Urea Nitrogen 30 mg/dL (7-17); Calcium 9.3 mg/dL (8.4-10.2); Carbon Dioxide 25 mmol/L (22-30); Chloride 106 mmol/L (98-107); Glucose 179 mg/dL (74-99); Non-African American GFR(CKD) 65 (>60 ml/min/1.73 sqM); Potassium 4.5 mmol/L (3.5-5.1); Sodium 137 mmol/L (137-145); Total Bilirubin 0.5 mg/dL (0.2-1.3); Total Protein 6.1 g/dL (6.3-8.2)
--- NOTE | 2023-09-30 10:34 | CT ---
EXAMINATION TYPE: CT brain efren cuello con DATE OF EXAM: 09/30/2023 COMPARISON: None HISTORY: Syncope CT DLP: 2415.[address] of the brain was performed. The ventricles, basal cisterns and sulci overlying the cerebral convexities demonstrate mild enlargem ent. There is no evidence for intracranial hemorrhage or sulcal effacement. There is decreased attenuatio n about the periventricular white matter and deep white matter of both cerebral hemispheres, compatib le with chronic small vessel ischemia. No mass effects are seen. If symptoms persist consider MRI. Osseous calvarium is intact. IMPRESSION: 1. Age related atrophic and chronic small vessel ischemic change without acute intracranial process seen at this time. CT Cervical Spine: Unenhanced CT of the cervical spine was performed with bone and soft tissue window settings submitted . Coronal and sagittal reconstruction is obtained. There is normal alignment and prevertebral soft tissues. No evidence for acute cervical fracture . Scattered degenerative disc disease and spondylosis. Biapical scarring. IMPRESSION: 1. No evidence for acute fracture or subluxation of the cervical spine.
--- NOTE | 2023-09-30 11:00 | ED ---
General Adult HPI - General Chief complaint: Syncope Stated complaint: syncope Time Seen by Provider: 09/30/23 08:42 Source: patient, EMS, RN notes reviewed Mode of arrival: EMS Limitations: no limitations - History of Present Illness Initial comments: 82-year-old female presents emergency department via EMS chief complaint of syncopal episode. Patient was sitting down eating when she stood up 1 to walk with felt very dizzy lightheaded sat back down and passed out. Patient's was there for at that time and she did not fall or hit her head. He states that she woke up very quickly was slightly confused but is at baseline now. Patient had a fall few weeks ago in which she did fell on some stairs. Patient is on Eliquis. Patient denies any chest pain palpitation shortness of breath nausea vomiting no other associated symptoms. - Related Data Home Medications Medication Instructions Recorded Confirmed Atorvastatin [Lipitor] 40 mg PO HS 01/02/16 09/30/23 Calcium Carbonate [Calcium] 600 mg PO DAILY 01/02/16 09/30/23 Metoprolol Tartrate [Lopressor] 50 mg PO DAILY 01/02/16 09/30/23 Omeprazole 20 mg PO DAILY 01/02/16 09/30/23 Ubidecarenone [Co Q-10] 100 mg PO DAILY 01/02/16 09/30/23 amLODIPine [Norvasc] 5 mg PO BID 01/02/16 09/30/23 Memantine [Namenda] 10 mg PO BID 10/06/19 09/30/23 Valsartan/Hydrochlorothiazide 1 tab PO HS 10/06/19 09/30/23 [Valsartan-Hctz 80-12.5 mg Tab] Apixaban [Eliquis] 5 mg PO BID 01/18/22 09/30/23 Magnesium 200 mg PO HS 01/18/22 09/30/23 Calcium Carbonate/Vitamin D3 1 cap PO HS 04/30/23 09/30/23 [Calcium 600 mg-D3 10 Mcg (400 Iu)] Krill/[place]-3/Dha/Epa/Lipids 1 cap PO W/SUPPER 04/30/23 09/30/23 [Krill Oil 350 mg Softgel] Multivit-Min/Iron/Folic/Lutein 1 tab PO DAILY 04/30/23 09/30/23 [Centrum Silver Women Tablet] metFORMIN HCL ER [Glucophage XR] 500 mg PO W/SUPPER 04/30/23 09/30/23 Doxepin HCl 3 mg PO HS 09/30/23 09/30/23 Metoprolol Tartrate [Lopressor] 25 mg PO HS 09/30/23 09/30/23 traZODone HCL [Desyrel] 50 mg PO HS 09/30/23 09/30/23 Allergies Allergy/AdvReac Type Severity Reaction Status Date / Time No Known Allergies Allergy Verified 09/30/23 09:52 Review of Systems ROS Statement: Those systems with pertinent positive or pertinent negative responses have been documented in the HPI. ROS Other: All systems not noted in ROS Statement are negative. Past Medical History Past Medical History: CVA/TIA, Dementia, Diabetes Mellitus, GERD/Reflux, Hyperlipidemia, Hypertension, Memory Impairment, Osteoarthritis (OA) Additional Past Medical History / Comment(s): TIA, STATES FORGETFUL, HX VERTIGO, ALLERGIES., STATES LEFT HAND VERY PAINFUL. On Eliquis but patient and family unsure why History of Any Multi-Drug Resistant Organisms: None Reported Past Surgical History: Back Surgery, Hysterectomy, Pacemaker Past Anesthesia/Blood Transfusion Reactions: No Reported Reaction Type of Cardiac Device: Permanent Pacemaker Device Placement Date:: 2019 Past Psychological History: No Psychological Hx Reported Smoking Status: Never smoker Past Alcohol Use History: None Reported Past Drug Use History: None Reported - Past Family History Brother(s) Family Medical History: Cancer Mother History Unknown: Yes Additional Family Medical History / Comment(s): Mother Father History Unknown: Yes Additional Family Medical History / Comment(s): Father General Exam Limitations: no limitations General appearance: alert, in no apparent distress Head exam: Present: atraumatic, normocephalic, normal inspection Eye exam: Present: normal appearance, PERRL, EOMI. Absent: scleral icterus, conjunctival injection, periorbital swelling ENT exam: Present: normal exam, normal oropharynx, mucous membranes moist Neck exam: Present: normal inspection, full ROM. Absent: tenderness, meningismus, lymphadenopathy Respiratory exam: Present: normal lung sounds bilaterally. Absent: respiratory distress, wheezes, rales, rhonchi, stridor Cardiovascular Exam: Present: regular rate, normal rhythm, normal heart sounds. Absent: systolic murmur, diastolic murmur, rubs, gallop, clicks GI/Abdominal exam: Present: soft, normal bowel sounds. Absent: distended, tenderness, guarding, rebound, rigid Neurological exam: Present: alert, oriented X3, CN II-XII intact, reflexes normal. Absent: motor sensory deficit Course Vital Signs 09/30/23 09/30/23 09/30/23 08:42 08:49 10:59 Temperature 98.7 F 98.7 F Pulse Rate 63 Pulse Rate [ 66 76 Manager [employer] ] Respiratory 18 18 Rate Blood Pressure 127/66 Blood Pressure 143/71 [Left Arm Sitting] Blood Pressure 151/75 [Left Arm Standing] Blood Pressure 125/60 [Left Arm Supine] O2 Sat by Pulse 91 L 91 L Oximetry 09/30/23 11:45 Temperature 98.2 F Pulse Rate 78 Pulse Rate [ [employer] ] Respiratory 20 Rate Blood Pressure 120/65 Blood Pressure [Left Arm Sitting] Blood Pressure [Left Arm Standing] Blood Pressure [Left Arm Supine] O2 Sat by Pulse 94 L Oximetry EKG Findings - EKG Comments: EKG Findings:: EKG performed at 8: 54 sinus rhythm rate of 66 NV 185 QRS 81 QT/QTc 384/397 - EKG Results: EKG: interpreted by BEN Medical Decision Making - Medical Decision Making Was pt. sent in by a medical professional or institution ([facility] Prajapati, FUELS SALES REPRESENTATIVE, urgent care, hospital, or usp...) When possible be specific @ -No Did you speak to anyone other than the patient for history (EMS, parent, family, police, friend...)? What history was obtained from this source @ - providing information regarding incident Did you review nursing and triage notes (agree or disagree)? Why? @ -I reviewed and agree with nursing and triage notes Were old charts reviewed (outside hosp., previous admission, EMS record, old EKG, old radiological studies, urgent care reports/EKG's, usp records)? Report findings @ -No old charts were reviewed Differential Diagnosis (chest pain, altered mental status, abdominal pain women, abdominal pain men, vaginal bleeding, weakness, fever, dyspnea, syncope, headache, dizziness, GI bleed, back pain, seizure, CVA, palpatations, mental health, musculoskeletal)? @ -Differential Syncope: Valvular disease, hypertrophic cardiomyopathy, pulmonary embolism, tamponade, tachycardia, bradycardia, AL, hypovolemia, hemorrhage, dissection, anemia, intracranial hemorrhage, seizure, hypoglycemia, carbon monoxide poisoning, this is not meant to be an all-inclusive list. EKG interpreted by me (3pts min.). @ -As above X-rays interpreted by me (1pt min.). @ -Chest x-ray shows no acute cardiopulmonary process CT interpreted by me (1pt min.). @ -CT brain, C-spine shows no acute intracranial hemorrhage, mass effect or cervical fracture U/S interpreted by me (1pt. min.). @ -None done What testing was considered but not performed or refused? (CT, X-rays, U/S, labs)? Why? @ -None What meds were considered but not given or refused? Why? @ -None Did you discuss the management of the patient with other professionals (professionals i.e. , PA, FUELS SALES REPRESENTATIVE, lab, RT, psych nurse, social science instructor, dot etcher, teacher, chief learning officer, child welfare caseworker)? Give summary @ -No Was smoking cessation discussed for >3mins.? @ -No Was critical care preformed (if so, how long)? @ -No Were there social determinants of health that impacted care today? How? (Homelessness, low income, unemployed, alcoholism, drug addiction, transportation, low edu. Level, literacy, decrease access to med. care, [facility], rehab)? @ -No Was there de-escalation of care discussed even if they declined (Discuss DNR or withdrawal of care, Hospice)? DNR status @ -No What co-morbidities impacted this encounter? (DM, HTN, Smoking, COPD, CAD, Cancer, CVA, ARF, Chemo, Hep., AIDS, mental health diagnosis, sleep apnea, morbid obesity)? @ -None Was patient admitted / discharged? Hospital course, mention meds given and route, prescriptions, significant lab abnormalities, going to OR and other pertinent info. @ -Discharge patient had full workup she is currently asymptomatic, not hypotensive or orthostatic positive. Patient able to ambulate with no difficulty, no dizziness patient is requesting discharge discharged in stable c ondition with close follow-up. Undiagnosed new problem with uncertain prognosis? @ -No Drug Therapy requiring intensive monitoring for toxicity (Heparin, Nitro, Insulin, Cardizem)? @ -No Were any procedures done? @ -No Diagnosis/symptom? @ -Syncope Acute, or Chronic, or Acute on Chronic? @ -Acute Uncomplicated (without systemic symptoms) or Complicated (systemic symptoms)? @ -complicated Side effects of treatment? @ -No Exacerbation, Progression, or Severe Exacerbation? @ -No Poses a threat to life or bodily function? How? (Chest pain, USA, AL, pneumonia, PE, COPD, DKA, ARF, appy, cholecystitis, CVA, Diverticulitis, Homicidal, Suicidal, threat to staff... and all critical care pts) @ -No - Lab Data Result diagrams: 09/30/23 09:24 09/30/23 09:24 Lab Results 09/30/23 09/30/23 09/30/23 Range/Units :05 01: 09:24 WBC 8.8 (3.8-10.6) k/uL RBC 4.58 (3.80-5.40) m/uL Hgb 13.5 (11.4-16.0) gm/dL Hct 40.6 (34.0-46.0) % MCV 88.8 (80.0-100.0) fL MCH 29.4 (25.0-35.0) pg MCHC 33.1 (31.0-37.0) g/dL RDW 13.4 (11.5-15.5) % Plt Count 225 (150-450) k/uL MPV 8.4 Neutrophils % 84 % Lymphocytes % 8 % Monocytes % 5 % Eosinophils % 2 % Basophils % 1 % Neutrophils # 7.4 (1.3-7.7) k/uL Lymphocytes # 0.7 L (1.0-4.8) k/uL Monocytes # 0.5 (0-1.0) k/uL Eosinophils # 0.1 (0-0.7) k/uL Basophils # 0.1 (0-0.2) k/uL PT 11.5 (10.0-12.5) sec INR 1.1 (<1.2) APTT 24.3 (22.0-30.0) sec Sodium 137 (137-145) mmol/L Potassium 4.5 (3.5-5.1) mmol/L Chloride 106 (98-107) mmol/L Carbon Dioxide 25 (22-30) mmol/L Anion Gap 6 mmol/L BUN 30 H (7-17) mg/dL Creatinine 0.83 (0.52-1.04) mg/dL Est GFR (CKD-EPI)AfAm 75 (>60 ml/min/1.73 sqM) Est GFR (CKD-EPI)NonAf 65 (>60 ml/min/1.73 sqM) Glucose 179 H (74-99) mg/dL Calcium 9.3 (8.4-10.2) mg/dL Magnesium 2.0 (1.6-2.3) mg/dL Total Bilirubin 0.5 (0.2-1.3) mg/dL AST 22 (14-36) U/L ALT 17 (4-34) U/L Alkaline Phosphatase 86 (38-126) U/L Troponin I (0.000-0.034) ng/mL Total Protein 6.1 L (6.3-8.2) g/dL Albumin 3.8 (3.5-5.0) g/dL 09/30/23 Range/Units 09:24 WBC (3.8-10.6) k/uL RBC (3.80-5.40) m/uL Hgb (11.4-16.0) gm/dL Hct (34.0-46.0) % MCV (80.0-100.0) fL MCH (25.0-35.0) pg MCHC (31.0-37.0) g/dL RDW (11.5-15.5) % Plt Count (150-450) k/uL MPV Neutrophils % % Lymphocytes % % Monocytes % % Eosinophils % % Basophils % % Neutrophils # (1.3-7.7) k/uL Lymphocytes # (1.0-4.8) k/uL Monocytes # (0-1.0) k/uL Eosinophils # (0-0.7) k/uL Basophils # (0-0.2) k/uL PT (10.0-12.5) sec INR (<1.2) APTT (22.0-30.0) sec Sodium (137-145) mmol/L Potassium (3.5-5.1) mmol/L Chloride (98-107) mmol/L Carbon Dioxide (22-30) mmol/L Anion Gap mmol/L BUN (7-17) mg/dL Creatinine (0.52-1.04) mg/dL Est GFR (CKD-EPI)AfAm (>60 ml/min/1.73 sqM) Est GFR (CKD-EPI)NonAf (>60 ml/min/1.73 sqM) Glucose (74-99) mg/dL Calcium (8.4-10.2) mg/dL Magnesium (1.6-2.3) mg/dL Total Bilirubin (0.2-1.3) mg/dL AST (14-36) U/L ALT (4-34) U/L Alkaline Phosphatase (38-126) U/L Troponin I <0.012 (0.000-0.034) ng/mL Total Protein (6.3-8.2) g/dL Albumin (3.5-5.0) g/dL Disposition Clinical Impression: Vasovagal syncope Disposition: HOME SELF-CARE Condition: Stable Instructions (If sedation given, give patient instructions): Syncope (ED) Additional Instructions: Please return to the Emergency Department if symptoms worsen or any other concerns. Is patient prescribed a controlled substance at d/c from ED?: No Referrals: Sondra Quintero MD [Primary Care Provider] - 1-2 days Time of Disposition: 11:35
[2023-09-30 11:48] VITALS: BP 120/65; PULSE 78; RESP 20; TEMP 98.2
== END 2023-09-30 11:48 | disposition home or self-care (01) ==
LOC: EC 08:39
DX: R55 Syncope and collapse (principal)
CPT/HCPCS: 36415; 70450; 71046; 72125; 80053; 83735; 84484; 85025; 85610; 85730; 93005; 96360; 96361; 99285

== ENCOUNTER 2023-12-16 01:48 | Emergency (ER) | payer MEDICARE ==
[2023-12-16 01:54] VITALS: RESP 18
--- NOTE | 2023-12-16 02:00 | ED ---
Female Urogenital HPI - General Chief complaint: Urogenital Stated complaint: Bladder Infection Time Seen by Provider: 12/16/23 02:00 Source: patient, RN notes reviewed Mode of arrival: ambulatory Limitations: no limitations - History of Present Illness Initial comments: 83-year-old female with history of Alzheimer's presents emergency department accompanied by her chief complaint of urinary discomfort. Patient states that over the 1 to 2 days she has been experiencing an increase in urinary frequency, urinary urgency, dysuria, vaginal discomfort and burning. Patient's is at bedside and aids in history as well due to patient's poo r short-term memory. Currently, patient is denying abdominal pain, flank pain, history of fevers or chills, nausea vomiting over the past few days. she denies vaginal bleeding or vaginal discharge. denies history of CKD and pyelonephritis. - Related Data Home Medications Medication Instructions Recorded Confirmed Atorvastatin [Lipitor] 40 mg PO HS 01/02/16 09/30/23 Calcium Carbonate [Calcium] 600 mg PO DAILY 01/02/16 09/30/23 Metoprolol Tartrate [Lopressor] 50 mg PO DAILY 01/02/16 09/30/23 Omeprazole 20 mg PO DAILY 01/02/16 09/30/23 Ubidecarenone [Co Q-10] 100 mg PO DAILY 01/02/16 09/30/23 amLODIPine [Norvasc] 5 mg PO BID 01/02/16 09/30/23 Memantine [Namenda] 10 mg PO BID 10/06/19 09/30/23 Valsartan/Hydrochlorothiazide 1 tab PO HS 10/06/19 09/30/23 [Valsartan-Hctz 80-12.5 mg Tab] Apixaban [Eliquis] 5 mg PO BID 01/18/22 09/30/23 Magnesium 200 mg PO HS 01/18/22 09/30/23 Calcium Carbonate/Vitamin D3 1 cap PO HS 04/30/23 09/30/23 [Calcium 600 mg-D3 10 Mcg (400 Iu)] Krill/[place]-3/Dha/Epa/Lipids 1 cap PO W/SUPPER 04/30/23 09/30/23 [Krill Oil 350 mg Softgel] Multivit-Min/Iron/Folic/Lutein 1 tab PO DAILY 04/30/23 09/30/23 [Centrum Silver Women Tablet] metFORMIN HCL ER [Glucophage XR] 500 mg PO W/SUPPER 04/30/23 09/30/23 Doxepin HCl 3 mg PO HS 09/30/23 09/30/23 Metoprolol Tartrate [Lopressor] 25 mg PO HS 09/30/23 09/30/23 traZODone HCL [Desyrel] 50 mg PO HS 09/30/23 09/30/23 Previous Rx's Medication Instructions Recorded Cephalexin [Keflex] 500 mg PO Q6HR #40 cap 12/16/23 Allergies Allergy/AdvReac Type Severity Reaction Status Date / Time No Known Allergies Allergy Verified 12/16/23 01:52 Review of Systems ROS Statement: Those systems with pertinent positive or pertinent negative responses have been documented in the HPI. ROS Other: All systems not noted in ROS Statement are negative. Past Medical History Past Medical History: CVA/TIA, Dementia, Diabetes Mellitus, GERD/Reflux, Hyperlipidemia, Hypertension, Memory Impairment, Osteoarthritis (OA) Additional Past Medical History / Comment(s): TIA, STATES FORGETFUL, HX VERTIGO, ALLERGIES., STATES LEFT HAND VERY PAINFUL. On Eliquis but patient and family unsure why History of Any Multi-Drug Resistant Organisms: None Reported Past Surgical History: Back Surgery, Hysterectomy, Pacemaker Past Anesthesia/Blood Transfusion Reactions: No Reported Reaction Type of Cardiac Device: Permanent Pacemaker Device Placement Date:: 2019 Past Psychological History: No Psychological Hx Reported Smoking Status: Never smoker Past Alcohol Use History: None Reported Past Drug Use History: None Reported - Past Family History Brother(s) Family Medical History: Cancer Mother History Unknown: Yes Additional Family Medical History / Comment(s): Mother Father History Unknown: Yes Additional Family Medical History / Comment(s): Father General Exam Limitations: no limitations, altered mental status (history of alzheimers) General appearance: alert, in no apparent distress Head exam: Present: atraumatic, normocephalic, normal inspection Eye exam: Present: normal appearance, PERRL, EOMI. Absent: scleral icterus, conjunctival injection, periorbital swelling ENT exam: Present: normal exam, mucous membranes moist Neck exam: Present: normal inspection. Absent: tenderness, meningismus, lymphadenopathy Respiratory exam: Present: normal lung sounds bilaterally. Absent: respiratory distress, wheezes, rales, rhonchi, stridor Cardiovascular Exam: Present: regular rate, normal rhythm, normal heart sounds. Absent: systolic murmur, diastolic murmur, rubs, gallop, clicks GI/Abdominal exam: Present: soft, normal bowel sounds. Absent: distended, tenderness, guarding, rebound, rigid Extremities exam: Present: normal inspection, full ROM, normal capillary refill. Absent: tenderness, pedal edema, joint swelling, calf tenderness Back exam: Present: normal inspection, full ROM, CVA tenderness (R) Skin exam: Present: warm, dry, intact, normal color. Absent: rash Course Vital Signs 12/16/23 01:49 Temperature 98.0 F Pulse Rate 88 Respiratory 18 Rate Blood Pressure 143/74 O2 Sat by Pulse 96 Oximetry Medical Decision Making - Medical Decision Making Was pt. sent in by a medical professional or institution (, PA, POULTRY HATCHERY MAN, urgent care, hospital, or fdc...) When possible be specific @ -No Did you speak to anyone other than the patient for history (EMS, parent, family, police, friend...)? What history was obtained from this source @ -With the patient's at bedside states the patient has been having dysuria, hematuria, increased urinary frequency and urgency over the past day, see HPI for further details. Did you review nursing and triage notes (agree or disagree)? Why? @ -I reviewed and agree with nursing and triage notes Were old charts reviewed (outside hosp., previous admission, EMS record, old EKG, old radiological studies, urgent care reports/EKG's, fdc records)? Report findings @ -No old charts were reviewed Differential Diagnosis (chest pain, altered mental status, abdominal pain women, abdominal pain men, vaginal bleeding, weakness, fever, dyspnea, syncope, headache, dizziness, GI bleed, back pain, seizure, CVA, palpatations, mental health, musculoskeletal)? @ -Differential Abdominal Pain Women: Appendicitis, Cholecystitis, diverticulosis, ischemic bowel, pancreatitis, hepatitis, UTI, gastroenteritis, AAA, incarcerated hernia, bowel obstruction, constipation, inflammatory bowel, hepatitis, peptic ulcer disease, splenic infarction, perforated viscus, vulvitis, ovarian torsion, PID, kidney stone, placenta abruption, this is not meant to be an all-inclusive list EKG interpreted by me (3pts min.). @ -None X-rays interpreted by me (1pt min.). @ -None done CT interpreted by me (1pt min.). @ -CT imaging of the abdomen pelvis with without contrast reveals moderate wall thickening with fat stranding and a poorly distended bladder, no hydronephrosis or nephrolithiasis visualized bilaterally. U/S interpreted by me (1pt. min.). @ -None done What testing was considered but not performed or refused? (CT, X-rays, U/S, lab s)? Why? @ -None What meds were considered but not given or refused? Why? @ -None Did you discuss the management of the patient with other professionals (professionals i.e. , PA, P[employer] HATCH[employer] MAN, lab, RT, psych nurse, nephrology social worker, casting trucker, teacher, restoration officer, correctional casework specialist)? Give summary @ -No Was smoking cessation discussed for >3mins.? @ -No Was critical care preformed (if so, how long)? @ -No Were there social determinants of health that impacted care today? How? (Homelessness, low income, unemployed, alcoholism, drug addiction, transportation, low edu. Level, literacy, decrease access to med. care, fdc, rehab)? @ -No Was there de-escalation of care discussed even if they declined (Discuss DNR or withdrawal of care, Hospice)? DNR status @ -No What co-morbidities impacted this encounter? (DM, HTN, Smoking, COPD, CAD, Cancer, CVA, ARF, Chemo, Hep., AIDS, mental health diagnosis, sleep apnea, morbid obesity)? @ -None Was patient admitted / discharged? Hospital course, mention meds given and route, prescriptions, significant lab abnormalities, going to OR and other pertinent info. @ -83-year-old female with dysuria, increased urinary frequency and urgency. Patient's vitals are stable upon arrival. Patient's abdominal examination benign with no signs of tenderness in all quadrants, no suprapubic tenderness. Patient does have right flank tenderness that is nonradiating. With urinary symptoms addition of right flank pain she will be sent for a CT image of the abdomen and pelvis to rule out potential pyelonephritis or stone. She is provided with dose of Toradol pending CT imaging and labs, patient agreed with this plan. CBC reveals mild leukocytosis 12.6, neutrophils 10.3, BUN 21, lactate non-elevated at 1.7. UA remarkable for infection including large leukocyte e sterase, white blood cell clumps, greater than 182 white blood cells. Patient will be treated with a IV push of Rocephin and sent a prescription for Keflex to her pharmacy. Recommend the patient increase oral rehydration and follow-up with her primary care provider 3 for further evaluation. All questions answered at bedside and strict return parameters sandra with the patient and her they verbalized understanding. Case discussed with Dr. Mcgee Undiagnosed new problem with uncertain prognosis? @ -No Drug Therapy requiring intensive monitoring for toxicity (Heparin, Nitro, Insulin, Cardizem)? @ -No Were any procedures done? @ -No Diagnosis/symptom? @ -urinary tract infection Acute, or Chronic, or Acute on Chronic? @ -Acute Uncomplicated (without systemic symptoms) or Complicated (systemic symptoms)? @ -uncomplicated Side effects of treatment? @ -No Exacerbation, Progression, or Severe Exacerbation? @ -No Poses a threat to life or bodily function? How? (Chest pain, [place], [place], pneumonia, PE, COPD, DKA, ARF, appy, cholecystitis, CVA, Diverticulitis, Homicidal, Suici david, threat to staff... and all critical care pts) @ -No - Lab Data Result diagrams: 12/16/23 02:22 12/16/23 02:22 Lab Results 12/16/23 12/16/23 12/16/23 Range/Units 02:22 02:22 02:22 WBC 12.6 H (3.8-10.6) k/uL RBC 4.78 (3.80-5.40) m/uL Hgb 14.0 (11.4-16.0) gm/dL Hct 41.4 (34.0-46.0) % MCV 86.7 (80.0-100.0) fL MCH 29.2 (25.0-35.0) pg MCHC 33.7 (31.0-37.0) g/dL RDW 13.2 (11.5-15.5) % Plt Count 222 (150-450) k/uL MPV 8.0 Neutrophils % 82 % Lymphocytes % 9 % Monocytes % 5 % Eosinophils % 2 % Basophils % 1 % Neutrophils # 10.3 H (1.3-7.7) k/uL Lymphocytes # 1.2 (1.0-4.8) k/uL Monocytes # 0.6 (0-1.0) k/uL Eosinophils # 0.3 (0-0.7) k/uL Basophils # 0.1 (0-0.2) k/uL Sodium 139 (137-145) mmol/L Potassium 4.1 (3.5-5.1) mmol/L Chloride 106 (98-107) mmol/L Carbon Dioxide 28 (22-30) mmol/L Anion Gap 5 mmol/L BUN 21 H (7-17) mg/dL Creatinine 0.71 (0.52-1.04) mg/dL Est GFR (CKD-EPI)AfAm >90 (>60 ml/min/1.73 sqM) Est GFR (CKD-EPI)NonAf 78 (>60 ml/min/1.73 sqM) Glucose 132 H (74-99) mg/dL Plasma Lactic Acid Jesu 1.7 (0.7-2.0) mmol/L Calcium 9.4 (8.4-10.2) mg/dL Total Bilirubin 0.7 (0.2-1.3) mg/dL AST 24 (14-36) U/L ALT 17 (4-34) U/L Alkaline Phosphatase 91 (38-126) U/L Total Protein 6.6 (6.3-8.2) g/dL Albumin 4.1 (3.5-5.0) g/dL Urine Color Urine Appearance (Clear) Urine pH (5.0-8.0) Ur Specific [place] (1.001-1.035) Urine Protein (Negative) Urine Glucose (UA) (Negative) Urine Ketones (Negative) Urine Blood (Negative) Urine Nitrite (Negative) Urine Bilirubin (Negative) Urine Urobilinogen (<2.0) mg/dL Ur Leukocyte Esterase (Negative) Urine RBC (0-5) /hpf Urine WBC (0-5) /hpf Urine WBC Clumps (None) /hpf Urine Bacteria (None) /hpf 12/16/23 Range/Units 02:45 WBC (3.8-10.6) k/uL RBC (3.80-5.40) m/uL Hgb (11.4-16.0) gm/dL Hct (34.0-46.0) % MCV (80.0-100.0) fL MCH (25.0-35.0) pg MCHC (31.0-37.0) g/dL RDW (11.5-15.5) % Plt Count (150-450) k/uL MPV Neutrophils % % Lymphocytes % % Monocytes % % Eosinophils % % Basophils % % Neutrophils # (1.3-7.7) k/uL Lymphocytes # (1.0-4.8) k/uL Monocytes # (0-1.0) k/uL Eosinophils # (0-0.7) k/uL Basophils # (0-0.2) k/uL Sodium (137-145) mmol/L Potassium (3.5-5.1) mmol/L Chloride (98-107) mmol/L Carbon Dioxide (22-30) mmol/L Anion Gap mmol/L BUN (7-17) mg/dL Creatinine (0.52-1.04) mg/dL Est GFR (CKD-EPI)AfAm (>60 ml/min/1.73 sqM) Est GFR (CKD-EPI)NonAf (>60 ml/min/1.73 sqM) Glucose (74-99) mg/dL Plasma Lactic Acid Jesu (0.7-2.0) mmol/L Calcium (8.4-10.2) mg/dL Total Bilirubin (0.2-1.3) mg/dL AST (14-36) U/L ALT (4-34) U/L Alkaline Phosphatase (38-126) U/L Total Protein (6.3-8.2) g/dL Albumin (3.5-5.0) g/dL Urine Color Light Red Urine Appearance Turbid H (Clear) Urine pH 6.5 (5.0-8.0) Ur Specific [place] 1.017 (1.001-1.035) Urine Protein 1+ H (Negative) Urine Glucose (UA) Negative (Negative) Urine Ketones Negative (Negative) Urine Blood Large H (Negative) Urine Nitrite Negative (Negative) Urine Bilirubin Negative (Negative) Urine Urobilinogen <2.0 (<2.0) mg/dL Ur Leukocyte Esterase Large H (Negative) Urine RBC >182 H (0-5) /hpf Urine WBC >182 H (0-5) /hpf Urine WBC Clumps Few H (None) /hpf Urine Bacteria Occasional H (None) /hpf Disposition Clinical Impression: Urinary tract infection, Cystitis Disposition: HOME SELF-CARE Condition: Good Instructions (If sedation given, give patient instructions): Urinary Tract Infection in Women (ED) Additional Instructions: Return to the emergency department for any new or worsening symptoms. Complete full course of antibiotics as prescribed. Recommend follow-up with your primary care provider this week for further evaluation. Continue to increase oral rehydration. Prescriptions: Cephalexin [Keflex] 500 mg PO Q6HR #40 cap Is patient prescribed a controlled substance at d/c from ED?: No Referrals: Sondra Quintero MD [Primary Care Provider] - 1-2 days Time of Disposition: 03:40
[2023-12-16 02:43] LABS: Basophils # (A) 0.1 k/uL (0-0.2); Basophils % (A) 1 %; Eosinophils # (A) 0.3 k/uL (0-0.7); Eosinophils % (A) 2 %; HCT 41.4 % (34.0-46.0); Lymphocytes # (A) 1.2 k/uL (1.0-4.8); Lymphocytes % (A) 9 %; MCH 29.2 pg (25.0-35.0); MCHC 33.7 g/dL (31.0-37.0); MCV 86.7 fL (80.0-100.0); Monocytes # (A) 0.6 k/uL (0-1.0); Monocytes % (A) 5 %; Neutrophils # (A) 10.3 k/uL (1.3-7.7); Neutrophils % (A) 82 %; Platelet Count 222 k/uL (150-450); RBC 4.78 m/uL (3.80-5.40); RDW 13.2 % (11.5-15.5); WBC 12.6 k/uL (3.8-10.6)
--- NOTE | 2023-12-16 02:46 | CT ---
EXAMINATION TYPE: CT abdomen pelvis wo con DATE OF EXAM: 12/16/2023 HISTORY: right flank pain, dysuria, hematuria. patient c/o painful urination and urinary frequency. H /O DM, HTN, CT DLP: 539.7 mGycm. Automated Exposure Control for Dose Reduction was Utilized. TECHNIQUE: CT scan of the abdomen and pelvis is performed without oral or IV contrast. COMPARISON: Prior CT April 30, 2023 FINDINGS: Within the limitations of a non-contrast study, the following observations are made. LUNG BASES: Stable 2.7 cm thin-walled cyst in the left hepatic lobe.. LIVER/GB: No significant abnormality is appreciated. PANCREAS: No significant abnormality is seen. SPLEEN: No significant abnormality is seen. ADRENALS: No significant abnormality is seen. KIDNEYS: Multiple large thin-walled exophytic cysts scattered throughout the left kidney are redemons trated with local mass effect. No hydronephrosis seen bilaterally. Bladder poorly distended without i ntraluminal calculus. Moderate irregular wall thickening is present. BOWEL: Sigmoid colonic diverticulosis. No CT evidence for acute diverticulitis. No abnormal small or large bowel dilatation. GENITAL ORGANS: Uterus is surgically absent. LYMPH NODES: No greater than 1cm abdominal or pelvic lymph nodes are appreciated. OSSEOUS STRUCTURES: Moderate disc space narrowing with suspected surgical change at the L5-S1 level. Posterior decompression changes redemonstrated. OTHER: Moderate calcified plaque of the aorta extends into branch vessels. IMPRESSION: Moderate wall thickening with fat stranding in the poorly distended bladder. Findings tristin picious for acute bladder infection. No hydronephrosis seen bilaterally.
[2023-12-16 02:56] LABS: ALT 17 U/L (4-34); AST 24 U/L (14-36); African American GFR (CKD) >90 (>60 ml/min/1.73 sqM); Albumin 4.1 g/dL (3.5-5.0); Alkaline Phosphatase 91 U/L (38-126); Anion Gap 5 mmol/L; Blood Urea Nitrogen 21 mg/dL (7-17); Calcium 9.4 mg/dL (8.4-10.2); Carbon Dioxide 28 mmol/L (22-30); Chloride 106 mmol/L (98-107); Glucose 132 mg/dL (74-99); Non-African American GFR(CKD) 78 (>60 ml/min/1.73 sqM); Potassium 4.1 mmol/L (3.5-5.1); Sodium 139 mmol/L (137-145); Total Bilirubin 0.7 mg/dL (0.2-1.3); Total Protein 6.6 g/dL (6.3-8.2)
[2023-12-16] MEDS: KETOROLAC 15 MG/ML 1 ML VIAL IVP STA (02:57)
[2023-12-16 03:30] LABS: Appearance,Urine Turbid (Clear); Bacteria,Urine Occasional /hpf; Bilirubin,Urine Negative (Negative); Blood,Urine Large (Negative); Color,Urine Light Red; Glucose,Urine (UA) Negative (Negative); Ketones,Urine Negative (Negative); Leukocyte Esterase,Urine Large (Negative); Nitrite,Urine Negative (Negative); PH, Urine 6.5 (5.0-8.0); Protein,Urine 1+ (Negative); RBC,Urine >182 /hpf (0-5); Specific Gravity,Urine 1.017 (1.001-1.035); Urobilinogen,Urine <2.0 mg/dL (<2.0); WBC,Urine >182 /hpf (0-5)
[2023-12-16] MEDS: cefTRIAXone 1,000 MG VIAL (IM USE) IM STA (03:45)
[2023-12-16] MEDS: cefTRIAXone IN SWFI 1,000 MG/10 ML SYRINGE IVP STA (03:49)
[2023-12-16 04:06] VITALS: BP 133/75; PULSE 81; TEMP 98.1
== END 2023-12-16 04:05 | disposition home or self-care (01) ==
LOC: EC 01:48
DX: N30.90 Cystitis, unspecified without hematuria (principal)
CPT/HCPCS: 36415; 74176; 80053; 81001; 83605; 85025; 87077; 87086; 87186; 96374; 96375; 99284

== ENCOUNTER 2024-04-17 15:16 | Emergency (ER) | payer MEDICARE ==
--- NOTE | 2024-04-17 16:27 | ED ---
Female Urogenital HPI - General Chief complaint: Urogenital Stated complaint: urogenital Time Seen by Provider: 04/17/24 16:23 Source: patient, family, RN notes reviewed Mode of arrival: ambulatory Limitations: no limitations - History of Present Illness Initial comments: 83-year-old female with history of dementia presenting with for urinary frequency x 1 week. reports patient was complaining of dysuria and suprapubic pain this morning. Denies fever, vomiting, flank pain, abdominal pain. also reports he walked into the kitchen yesterday and witnessed patient swallowing 2 times thinking she was taking her medication. Patient states she was confused. attributed this to her dementia. - Related Data Home Medications Medication Instructions Recorded Confirmed Atorvastatin [Lipitor] 40 mg PO HS 01/02/16 09/30/23 Calcium Carbonate [Calcium] 600 mg PO DAILY 01/02/16 09/30/23 Metoprolol Tartrate [Lopressor] 50 mg PO DAILY 01/02/16 09/30/23 Omeprazole 20 mg PO DAILY 01/02/16 09/30/23 Ubidecarenone [Co Q-10] 100 mg PO DAILY 01/02/16 09/30/23 amLODIPine [Norvasc] 5 mg PO BID 01/02/16 09/30/23 Memantine [Namenda] 10 mg PO BID 10/06/19 09/30/23 Valsartan/Hydrochlorothiazide 1 tab PO HS 10/06/19 09/30/23 [Valsartan-Hctz 80-12.5 mg Tab] Apixaban [Eliquis] 5 mg PO BID 01/18/22 09/30/23 Magnesium 200 mg PO HS 01/18/22 09/30/23 Calcium Carbonate/Vitamin D3 1 cap PO HS 04/30/23 09/30/23 [Calcium 600 mg-D3 10 Mcg (400 Iu)] Krill/Talmo-3/Dha/Epa/Lipids 1 cap PO W/SUPPER 04/30/23 09/30/23 [Krill Oil 350 mg Softgel] Multivit-Min/Iron/Folic/Lutein 1 tab PO DAILY 04/30/23 09/30/23 [Centrum Silver Women Tablet] metFORMIN HCL ER [Glucophage XR] 500 mg PO W/SUPPER 01/17/24 06/18/24 Doxepin HCl 3 mg PO HS 09/30/23 09/30/23 Metoprolol Tartrate [Lopressor] 25 mg PO HS 09/30/23 09/30/23 traZODone HCL [Desyrel] 50 mg PO HS 09/30/23 09/30/23 Previous Rx's Medication Instructions Recorded Cephalexin [Keflex] 500 mg PO Q6HR #40 cap 12/16/23 Cephalexin [Keflex] 500 mg PO Q12H 7 Days #14 cap 04/17/24 Allergies Allergy/AdvReac Type Severity Reaction Status Date / Time No Known Allergies Allergy Verified 04/17/24 15:49 Review of Systems ROS Statement: Those systems with pertinent positive or pertinent negative responses have been documented in the HPI. ROS Other: All systems not noted in ROS Statement are negative. Past Medical History Past Medical History: CVA/TIA, Dementia, Diabetes Mellitus, GERD/Reflux, Hyperlipidemia, Hypertension, Memory Impairment, Osteoarthritis (OA) Additional Past Medical History / Comment(s): TIA, STATES FORGETFUL, HX VERTIGO, ALLERGIES., STATES LEFT HAND VERY PAINFUL. On Eliquis but patient and family unsure why History of Any Multi-Drug Resistant Organisms: None Reported Past Surgical History: Back Surgery, Hysterectomy, Pacemaker Past Anesthesia/Blood Transfusion Reactions: No Reported Reaction Type of Cardiac Device: Permanent Pacemaker Device Placement Date:: 2019 Past Psychological History: No Psychological Hx Reported Smoking Status: Never smoker Past Alcohol Use History: None Reported Past Drug Use History: None Reported - Past Family History Brother(s) Family Medical History: Cancer Mother History Unknown: Yes Additional Family Medical History / Comment(s): Mother Father History Unknown: Yes Additional Family Medical History / Comment(s): Father General Exam Limitations: no limitations General appearance: alert, in no apparent distress Head exam: Present: atraumatic, normocephalic, normal inspection ENT exam: Present: normal exam, normal oropharynx, mucous membranes moist Neck exam: Present: normal inspection. Absent: tenderness, meningismus, lymphadenopathy Respiratory exam: Present: normal lung sounds bilaterally. Absent: respiratory distress, wheezes, rales, rhonchi, stridor Cardiovascular Exam: Present: regular rate, normal rhythm, normal heart sounds. Absent: systolic murmur, diastolic murmur, rubs, gallop, clicks GI/Abdominal exam: Present: soft, normal bowel sounds, other (Mild suprapubic tenderness). Absent: distended, guarding, rebound, rigid Neurological exam: Present: alert, oriented X3 Psychiatric exam: Present: normal affect, normal mood Skin exam: Present: warm, dry, intact, normal color. Absent: rash Course Vital Signs 04/17/24 15:49 Temperature 98.3 F Pulse Rate 83 Respiratory 18 Rate Blood Pressure 128/64 O2 Sat by Pulse 93 L Oximetry Medical Decision Making - Medical Decision Making Was pt. sent in by a medical professional or institution (, [facility]HAM, SUBMARINE OPERATOR, urgent care, hospital, or longterm...) When possible be specific @ -No Did you speak to anyone other than the patient for history (EMS, parent, family, police, friend...)? What history was obtained from this source @ -No Did you review nursing and triage notes (agree or disagree)? Why? @ -I reviewed and agree with nursing and triage notes Were old charts reviewed (outside hosp., previous admission, EMS record, old EKG, old radiological studies, urgent care reports/EKG's, longterm records)? Report findings @ -No old charts were reviewed Differential Diagnosis (chest pain, altered mental status, abdominal pain women, abdominal pain men, vaginal bleeding, weakness, fever, dyspnea, syncope, headache, dizziness, GI bleed, back pain, seizure, CVA, palpatations, mental health, musculoskeletal)? @ -Urinary tract infection, pyelonephritis, foreign body ingestion EKG interpreted by me (3pts min.). @ -None X-rays interpreted by me (1pt min.). @ -KUB reveals radiopaque foreign body overlying right lower quadrant measuring 2.1 cm, no evidence of bowel obstruction or free air/pneumoperitoneum CT interpreted by me (1pt min.). @ -None done U/S interpreted by me (1pt. min.). @ -None done What testing was considered but not performed or refused? (CT, X-rays, U/S, labs)? Why? @ -None What meds were considered but not given or refused? Why? @ -None Did you discuss the management of the patient with other professionals (professionals i.e. ABRAHAM Prajapati, SUBMARINE OPERATOR, lab, RT, psych nurse, executive secretary social welfare, continuous pickling line pickler helper, teacher, [employer] revenue officer, binder caser)? Give summary @ -No Was smoking cessation discussed for >3mins.? @ -No Was critical care preformed (if so, how long)? @ -No Were there social determinants of health that impacted care today? How? ( Homelessness, low income, unemployed, alcoholism, drug addiction, transportation, low edu. Level, literacy, decrease access to med. care, custodial, rehab)? @ -No Was there de-escalation of care discussed even if they declined (Discuss DNR or withdrawal of care, Hospice)? DNR status @ -No What co-morbidities impacted this encounter? (DM, HTN, Smoking, COPD, CAD, Cancer, CVA, ARF, Chemo, Hep., AIDS, mental health diagnosis, sleep apnea, morbid obesity)? @ -None Was patient admitted / discharged? Hospital course, mention meds given and route, prescriptions, significant lab abnormalities, going to OR and other pertinent info. @ -Discharge. This is an 83-year-old female with history of dementia presenting for dysuria x 1 week with associated urinary frequency and urgency. also reports he witnessed patient swallow 2 times yesterday as patient thought she was taking her medications. No red flag symptoms. Patient is afebrile with no CVA tenderness. Patient is tolerating orals well. KUB reveals radiopaque foreign body overlying right lower quadrant measuring 2.1 cm, no evidence of bowel obstruction or free air/pneumoperitoneum. Urinalysis remarkable for 14 white blood cells, urine culture sent. Urinalysis not overly indicative of urinary tract infection, however discussed with patient and we will treat for UTI based on symptoms. Advised to check stool for foreign body or repeat KUB in 1 week. Patient has been are agreeable to plan. Appropriate return precautions and follow-up care discussed. Case was discussed with my ED attending Dr. Cruz. Undiagnosed new problem with uncertain prognosis? @ -No Drug Therapy requiring intensive monitoring for toxicity (Heparin, Nitro, Insulin, Cardizem)? @ -No Were any procedures done? @ -No Diagnosis/symptom? @ -Urinary tract infection, foreign body ingestion Acute, or Chronic, or Acute on Chronic? @ -Acute Uncomplicated (without systemic symptoms) or Complicated (systemic symptoms)? @ -Uncomplicated Side effects of treatment? @ -No Exacerbation, Progression, or Severe Exacerbation? @ -No Poses a threat to life or bodily function? How? (Chest pain, [place], [place], pneumonia, PE, COPD, DKA, ARF, appy, cholecystitis, CVA, Diverticulitis, Homicidal, Suicidal, threat to staff... and all critical care pts) @ -No - Lab Data Lab Results 04/17/24 Range/Units 16:30 Urine Color Light Yellow Urine Appearance Clear (Clear) Urine pH 6.0 (5.0-8.0) Ur Specific [place] 1.018 (1.001-1.035) Urine Protein Negative (Negative) Urine Glucose (UA) Negative (Negative) Urine Ketones Negative (Negative) Urine Blood Negative (Negative) Urine Nitrite Negative (Negative) Urine Bilirubin Negative (Negative) Urine Urobilinogen <2.0 (<2.0) mg/dL Ur Leukocyte Esterase Moderate H (Negative) Urine RBC <1 (0-5) /hpf Urine WBC 14 H (0-5) /hpf Ur Squamous Epith Cells 1 (0-4) /hpf Urine Mucus Occasional H (None) /hpf Disposition Clinical Impression: Urinary tract infection, Foreign body ingestion Disposition: HOME SELF-CARE Condition: Stable Instructions (If sedation given, give patient instructions): Urinary Tract Infection in Older Adults (ED) Additional Instructions: Take Keflex twice daily for 7 days. The foreign body should pass through the stool in approximately 2 days. You may check the stool or have repeat x-ray in 1 week. Please return to the Emergency Department if symptoms worsen or any other concerns. Prescriptions: Cephalexin [Keflex] 500 mg PO Q12H 7 Days #14 cap Is patient prescribed a controlled substance at d/c from ED?: No Referrals: Sondra Quintero MD [Primary Care Provider] - 1-2 days Time of Disposition: 17:21
[2024-04-17 16:43] LABS: Appearance,Urine Clear (Clear); Bilirubin,Urine Negative (Negative); Blood,Urine Negative (Negative); Color,Urine Light Yellow; Glucose,Urine (UA) Negative (Negative); Ketones,Urine Negative (Negative); Leukocyte Esterase,Urine Moderate (Negative); Mucus,Urine Occasional /hpf; Nitrite,Urine Negative (Negative); Protein,Urine Negative (Negative); RBC,Urine <1 /hpf (0-5); Specific Gravity,Urine 1.018 (1.001-1.035); Squamous Epithelial Cell,Urine 1 /hpf (0-4); Urobilinogen,Urine <2.0 mg/dL (<2.0); WBC,Urine 14 /hpf (0-5)
--- NOTE | 2024-04-17 16:58 | XR ---
EXAMINATION TYPE: XR KUB portable DATE OF EXAM: 04/17/2024 4:33 PM COMPARISON: Abdominal radiograph 12/11/2021. CLINICAL INDICATION: Female, 83 years old with history of foreign body ingestion; [facility] TECHNIQUE: One radiographic view of the abdomen was obtained. FINDINGS: The bowel gas pattern is nonspecific without dilated loops of small or large bowel. . Fecal material and gas are demonstrated throughout the colon and rectum. There is no evidence for organomegaly or pneumoperitoneum. The osseous structures are intact. Circum scribed opaque density overlying the region of the right lower quadrant measuring 2.0 cm. Partially v isualized pacemaker leads. IMPRESSION: Radiopaque foreign body overlying the right lower quadrant measuring 2.1 cm. No evidence of bowel obs truction or free air/pneumoperitoneum. [facility], , 04/17/2024 4:56 PM
[2024-04-17] MEDS: CEPHALEXIN 500 MG CAP PO STA (17:28)
[2024-04-17 17:34] VITALS: BP 154/87; PULSE 76; RESP 16; TEMP 97.8
== END 2024-04-17 17:34 | disposition home or self-care (01) ==
LOC: EC 15:16
DX: N39.0 Urinary tract infection, site not specified (principal); T18.9XXA Foreign body of alimentary tract, part unspecified, initial encounter; Z86.73 Personal history of transient ischemic attack (TIA), and cerebral infarction without residual deficits; W44.8XXA Other foreign body entering into or through a natural orifice, initial encounter
CPT/HCPCS: 74018; 81001; 87086; 99284